=== PATIENT | female | born 1990 | race Caucasian/White ===

== ENCOUNTER → 2017-10-13 08:20 | Outpatient (CLI) | payer OTHER, MEDICAID, SELFPAY ==
--- NOTE | 2017-10-13 | ASPOS_PTH ---
PATIENT: KELIN FINLEY LOC: LAB U#:[id number] AGE/SX: 34/F ROOM: RE10/13/[address]: Dr. Otoniel Marino MD : 1990 BED: DIS: SPEC #: [id number] RECD: 10/13/17 10:02 STATUS: BLACK ZELDA #: [id number] ALLEY: 10/13/17 00:[address]: Otoniel Marino DEPT: CYTOLOGY RECD BY: Abenr Encarnacion ENTERED: 10/13/17 10:05 SP TYPE: ASP HERE OTHR DR: Dr. Cecilia Dhaliwal, DO Tissues: Neck, NOS Procedures: Surgery Specimen Level IV Cytology Other Fine Needle Asp on Site HEADER OPERATION: FNA midline neck mass PRE-OP DIAGNOSIS: Midline neck mass TISSUE SUBMITTED: FNA midline neck mass, smear and fluid for cytology, cell block DIAGNOSIS CYTOLOGY Fine needle aspiration, midline neck mass (smears and cell block): Scant skeletal muscle fragments are present. No evidence of malignancy. AM:rehan 10/14/17 COMMENT The specimen is evaluated at the time of FNA by Dr. Ballesteros. Immediate Evaluation: Negative for malignant cells. Skeletal muscle tissue present. Clinical correlation is suggested. CYTOLOGY STUDY Slides are reviewed. CYTOLOGY GROSS Received is 0.2 ml of shaikh fluid labeled with the patient's name, and designated midline neck mass. Two imprints made from the submitted fluid and the rest is added to CytoLyt for cell block preparation. Submitted for cytology study. / AM:rehan 10/13/17 TC:5 CPT: 78068, 46071, 33248
== END ==
PROVIDERS: Family Provider Internal Medicine; PCP Internal Medicine; Visit Provider Otolaryngology
DX: R22.1 Localized swelling, mass and lump, neck (principal)
CPT/HCPCS: 10021; 88161; 88305

== ENCOUNTER → 2017-10-20 10:07 | Outpatient (CLI) | payer OTHER, MEDICAID, SELFPAY | PROVIDERS: Family Provider Internal Medicine; PCP Internal Medicine; Visit Provider Otolaryngology | DX: R22.1 Localized swelling, mass and lump, neck (principal) | CPT/HCPCS: 70491; Q9967 ==

== ENCOUNTER → 2018-03-07 12:47 | Outpatient (CLI) | payer OTHER, SELFPAY ==
--- NOTE | 2018-03-07 12:52 | US_ITS ---
STUDY: THYROID ULTRASOUND REASON FOR EXAM: Female, 27 years old. History of thyroid nodules. TECHNIQUE: Ultrasound evaluation of the thyroid was performed with real-time and static hughes-scale imaging. COMPARISON: Comparison is made with prior study dated December 05, 2014. FINDINGS: RIGHT LOBE: The right lobe of the thyroid gland measures 4.8 cm x 1.8 cm x 1.5 cm. There is a homogeneous echotexture. There is a stable 3 mm x 3 mm x 1 mm hypoechoic solid/cystic nodule in the midpole of the lobe. LEFT LOBE: The left lobe of the thyroid gland measures 5.2 cm x 1.7 cm x 1.6 cm. There is a homogeneous echotexture. Stable 3 mm x 3 mm x 2 mm hypoechoic solid nodule in the lower pole. ISTHMUS: The isthmus measures 3.0 mm. The regional lymph nodes are normal. US/Thyroid IMPRESSION: Stable examination. Electronically Signed: Jordy White MD at 13:28 EST , Service support ,
--- OUTSIDE RECORDS SUMMARY | 2018-05-09 16:54 | XMS RPT_ITS | Continuity of Care Document ---
:1990 Author Organization [facility] Address [facility] [place] [address] Phone Care Team Providers Name Role Phone Cecilia Dhaliwal DO Unavailable Sha CAM, Teri Pyle Unavailable Corwin Delacruz MD Unavailable Elida CAM, Yonathan Crenshaw Unavailable Phil Marlow Unavailable Unavailable JACINTO Degroot Unavailable Unavailable Unavailable Unavailable Problems Name Dates Details Abnormal TSH (R79.89, 790.6) Status: Active ADD (attention deficit disorder) (F98.8, 314.00) Status: Active BMI 32.0-32.9,adult (Z68.32, V85.32) Status: Active Chronic constipation (K59.09, 564.00) Comments: eats cheesedrinks gatorade at work Status: Active Current smoker (F17.200, 305.1) Comments: counselled, cut down from 1/2 ppd to 5 cig /day.1/2 ppd 5-6 years Status: Active Deliveries (Parity) Comments: 1 Status: Active Dust allergy (J30.89, 477.8) Status: Active Easily distractable on examination (F90.0, 799.51) Status: Active Fatigue (R53.83, 780.79) Status: Active Female pelvic congestion syndrome (N94.89, 625.5) Status: Active Hypercalcemia (E83.52, 275.42) Status: Active Kidney stone (N20.0, 592.0) Comments: small asx Status: Active Left thyroid nodule (E04.1, 241.0) Status: Active Lipoma of other skin and subcutaneous tissue (D17.39, 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 Status: Active Vaginal Delivery Comments: Status: Active Medications Name Dates Details Vyvanse 70 MG Oral Capsule 1 (one) Capsule in am for 0 days Quantity: 30 {Capsule} Refills: 0 Ordered:02-Jan-2018 Teri Dalton MD Start : 02-Jan-2018 Active Comments:DX: F98.8thirty FLUCONAZOLE, 150MG (Oral Tablet) 1 (one) Tablet qd for 0 days Quantity: 10 {Tablet} Refills: 0 Ordered:17-Apr-2015 JACINTO Degroot Start : 28-Feb-2015 End : 17-Apr-2015 Inactive KETOROLAC TROMETHAMINE, 10MG (Oral Tablet) 1 (one) Tablet Tablet q6h prn for 0 days Quantity: 8 {Tablet} Refills: 0 Ordered:28-Feb-2014 Beatriz Paez LPN Start : 21-Jan-2014 End : 28-Feb-2014 Inactive Comments:injection given in office LINZESS, 145 MCG (LINACLOTIDE) CAPSULES, 145 MCGMCG (Oral Capsule) (Free Text) 1 (one) Capsule qod for 0 days Quantity: 12 {Capsule} Refills: 0 Ordered:14-Jan-2014 Beatriz Paez LPN Start : 03-Apr-2013 End : 14-Jan-2014 Inactive No Known Historical Medications STRATTERA, 80MG (Oral Capsule) 1 (one) Capsule daily for 0 days Quantity: 30 {Capsule} Refills: 0 Ordered:08-Aug-2014 Teri Dalton MD Start : 08-Aug-2014 End : 08-Aug-2014 Inactive Comments:flat affect no thought process at all AMPHETAMINE-DEXTROAMPHET ER, 15MG (Oral Capsule Extended Release 24 Hour) 1 (one) Capsule ER 24HR in am for 0 days Quantity: 30 {Capsule} Refills: 0 Ordered:16-Sep-2014 Teri Dalton MD Start : 16-Sep-2014 End : 16-Sep-2014 Discontinued Comments:thirty Allergies and Adverse Reactions Name Dates Details No Known Allergies (Allergy) Onset: 03-Apr-2013 Status: Active Past Medical History Name Dates Details Abdominal pain (R10.9, 789.00) Status: Inactive as of 18-Jul-2014 Abdominal pain, acute, right upper quadrant (R10.11, 789.01) Status: Inactive as of 18-Jul-2014 Abrasion of sclera of right eye, initial encounter (S05.8X1A, 918.2) Comments: very mild. ? rub it wrong. keep using wetting drop. justhappen this am. vision okay. if notbetter by tomorrow or worsen. Status: Inactive as of 17-Apr-2015 Anxiety (F41.9, 300.00) Comments: has been seeing counseling 2013 Status: Resolved as of 02-Mar-2018 Body mass index (BMI) 23.0-23.9, adult (Z68.23, V85.1) Status: Resolved as of 29-Nov-2017 Dysphagia (R13.10, 787.20) Status: Inactive as of 17-Apr-2015 Dysphagia, cricopharyngeal (R13.13, 787.23) Comments: s/p surgery path was normal and bengn Status: Inactive as of 02-Mar-2018 Encounter for pre-employment examination (Z02.1, V70.5) Status: Inactive as of 16-Sep-2014 Heartburn (R12, 787.1) Status: Inactive as of 16-Sep-2014 Irritability (R45.4, 799.22) Status: Resolved as of 07-Jun-2014 Mass of left side of neck (R22.1, 784.2) Status: Resolved as of 02-Mar-2018 Nausea (R11.0, 787.02) Status: Inactive as of 18-Jul-2014 Pelvic pain in female (R10.2, 625.9) Status: Inactive as of 18-Jul-2014 Unspecified Diagnosis Status: Inactive as of 17-Apr-2015 Vaginal discharge (N89.8, 623.5) Status: Inactive as of 17-Apr-2015 Weight gain (R63.5, 783.1) Status: Inactive as of 02-Mar-2018 Procedures Procedure Dates Details Thyroid cyst Completed Comments: January 2015 Date Value Details 20-Oct-2017 Soft Tissue Neck WITH Contrast Result: Comments: See Note; NOTES: [facility] Imaging Services [address] [place] [address] Soft Tissue Neck WITH Contrast MR#: [id number] Acct: [id number] Name: KELIN MACIEL Cathleen p #: [id number] : 1990 F 27 From: Dante Myers MD PCP: Cecilia Dhaliwal DO Status: REG CLI Study: Soft Tissue Neck WITH Contrast Date of Exam: 10/20/17 Exam# [id number] Ordering Dr: Ryan Marino MD STUDY: CT SOFT TISSUE NECK WITH CONTRAST REASON FOR EXAM: Female, 27 years old. Left-sided neck mass painful to the touch. Previous puss filled mass was removed from the same area in 2 018. RADIATION DOSAGE (If Supplied By Facility): CTDIvol = ( 22.61 ) mGy, DLP = ( 660.50 ) mGycm TECHNIQUE: Thin slice helical CT acquisition of the neck soft tissues was performed from the level of t he emelyn through the orbits after administration of IV contrast Isovue-300, 75 mL, with paracoronal and parasagittal 2-D multiplanar reformatted images saved to the PACS archive. Individualized dose o ptimization techniques were used for this CT. COMPARISON: 12/31/2014 MRI face/neck. 12/10/2014 CT soft tissue neck.. FINDINGS: Left sided sternohyoid strap muscle f ocal thickening, mildly heterogeneous features internally, protruding to the undersurface of the skin. This inflammatory process measures approximately 2.1 cm craniocaudal, up to 1.9 cm transverse, and up to 7.1 mm anterior-posterior depth. There is no organized abscess. The process may also partially involve the underlying sternothyroid muscle. In this location the most common inflamed/infected cystl sukh lesion is a thyroglossal duct cyst. There is radiodense thyroid tissue at the base of this process. There is not a clearly defined tract supports toward the base of the tongue. Morphologically, the thyroid is in appropriate position with appropriate size and density characteristics. The remaining supraclavicular and cervical soft tissues are unremarkable. 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 Phlegmonou s features without organized abscess. Electronically Signed: Dante Myers, at 10:43 EDT Tel , Service support , CC: Otoniel lagos MD; Cecilia Dhaliwal DO Reconciliation Clerk: Signed 05-Apr-2015 Emergency Department Summary Result: Comments: See Note; NOTES: [facility] Medical Records Department [address] [place] [address] Emergency Department Summary MR#: [id number] Acct: [id number] Name: KELIN FLORES Rep #: [id number] : 1990 24 From: Kimi Mario MD PCP: Cecilia Dhaliwal DO Status: DEP ER DATE OF SERVICE: 04/05/2015 CHIEF COMPLAINT: Finger injury. HISTORY: A 24-year -old female who presents reporting having injured her left ring finger at work. She is right-handed, dropped a 10-pound ____ onto her left hand. This happened just prior to arrival. PHYSICAL EXAMINA TION: GENERAL: She is alert, appropriate and well-appearing. EXTREMITIES: Inspection of the left hand demonstrates subtle ecchymoses to the pad of the left ring finger. No obvious deformity or swelli ng. No subungual hematoma. Range of motion in that finger is mildly limited due to pain, but she has good range of motion in the wrist and the rest of the hand. Two-point discrimination is intact in t he fingers. CLINICAL COURSE AND DECISION MAKING: X-ray of the left hand shows no obvious fracture or deformity. There is a strange calcification around the tuft of the left ring finger and again thi s being the area where she is most tender and her injury as is a little bit strange and I discussed with her that it does not look like an obvious fracture, but if it is read by radiology as in fact b eing a fracture, the treatment is essentially identical to what I am doing, which is an Alumafoam splint. She is referred to [facility] for outpatient followup and she was given a note for work restricti ons. DISPOSITION: Discharge. DIAGNOSIS: Left ring finger contusion. Kimi Mario MD T: NTS JOB: [id number] 04/05/15441 <Electronically signed by Kimi Mario MD> Date __ Kimi Mario MD Cosigner Signature (If Indicated): Date CC: Cecilia Dhaliwal DO Date Dictated : 04/05/15221 Date Transcribed: 04/05/15221 Reconciliation Clerk: Signed 05-Apr-2015 Discharge Instruction Result: Comments: See Note; NOTES: [facility] Medical Records Department [address] [place] [address] Discharge Instruction 04/05/15215 MR#: [id number] Acct: [id number] Name: KELIN FLORES Rep #: [id number] : 1990 From: Kimi Mario MD PCP: Cecilia Dhaliwal DO Status: REG ER ED Disposition - Plan for ED Patient: Chief Complaint: Upper Extremity In jury Instructions: ED Finger Contusion, ED Crush Injury, Hand/Finger Referrals: Cecilia Dhaliwal DO [Primary Care Provider] - [facility]IC[facility]] - What to do if you have Problem s For any increased pain, shortness of breath, bleeding, nausea or vomiting, chest pain, or any unexpected problems, contact your doctor. Call [facility] ([phone]) or report to the [facility] Emergency Room. Call 911 if necessary. 04/05/15 0221 <Electronically signed by Kimi Mario MD> Date Kimi Mario MD Cosign er Signature (If Indicated): Date CC: Cecilia Dhaliwal DO 05-Apr-2015 Hand Min 3 Views Result: Comments: See Note; NOTES: [facility] Imaging Services [address] [place] [address] Verdana 4d Hand Min 3 Views MR#: [id number] Acct: [id number] Name: Maine FLORES Rep #: [id number] : 1990 F 24 From: Jadon Bustamante PCP: Cecilia Dhaliwal DO Status: REG ER Study: Hand Min 3 Views Date of Exam: 04/05/15 Exam# [id number] Ordering Dr: Kimi Mario MD JUSTIN DY: X-RAY - LEFT HAND REASON FOR EXAM: Female, 24 years old. Trauma, pain TECHNIQUE: 3 view(s) of the hand. COMPARISON: None. FINDINGS: Normal visualized ca rpal bones and carpal articulations. Normal carpometacarpal articulation of the thumb. Normal second through fifth carpometacarpal joints. Normal metacarpi. Normal metacarpophalangeal (MCP) joints. Normal visualized phalanges and interphalangeal joints. The soft tissue structures are unremarkable. IMPRESSION: Normal x- ray examination of the hand. Elect ronically Signed: Jadon Bustamante at 2:17 EST , Service support [phone], RAD/Hand Min 3 Views IMPRESSION: Normal x-ray examinat ion of the hand. Electronically Signed: Jadon Bustamante at 2:17 EST , Service support [phone], CC: Kimi Mario MD; Cecilia Dhaliwal DO Reconciliation Clerk: Signed 06-Feb-2015 Operative Report Result: Comments: See Note; NOTES: [facility] Medical Records Department [address] [place] [address] Operative Report MR#: [id number] Acct: [id number] Name: DAVID FLORES Rep #: [id number] : 1990 24 From: Ryan Marino MD PCP: Cecilia Dhaliwal DO Status: [facility] DATE OF SERVICE: 01/21/2015 DATE OF PROCEDURE: January 21, 2015 PREOPERATIVE DIAGN OSIS: Left neck mass. POSTOPERATIVE DIAGNOSIS: Left neck mass. PROCEDURE: Incisional biopsy, deep neck mass. SURGEON: Otoniel Marino M.D. ANESTHESIA: General endotracheal anesthesia. COMPLICATIONS: None. DRAINS: None. SPECIMENS: Multiple biopsies sent for frozen and permanent sectioning. INDICATIONS: This is a 24-year-old female who has had a several-month history of a waxing and waning mass in her left neck. CT demonstrated fullness with some hypodensity in her left neck just deep to the left strap muscle. MRI further demonstrated some thickening of the strap musc le with no definite mass. DESCRIPTION OF PROCEDURE: On the date of procedure, after appropriate informed consent was obtained, the patient was brought to the operating room, placed in the supine pos ition on the operating table. The patient was placed under general endotracheal anesthesia by the anesthesiologist. The endotracheal tube was secured. The eyes were taped and padded. The neck was prep ped and draped in sterile fashion in an area that was previously demarcated when the patient was awake to pinpoint her mass, which was noticeable on her neck. This area was injected with 1% lidocaine with epinephrine. A #15 blade was used to make a roughly 2 cm linear incision and the platysma muscle was lifted off of the underlying tissues. The left strap muscles were dissected out and there was severe scarring and inflammation in this area. The left strap muscle was elevated superficially and deep to the strap muscle, a small pocket of purulent material was found. The reactive tissue along the superficial strap muscles along with some muscular tissue was excised and sent for frozen section to rule out soft tissue sarcoma. These were negative. The area around the pus pocket was also sent for frozen sectioning and these were negative for any malignancy. No definitive cyst or sack was located and the entire left neck was explored and nothing concerning was found. The area was irrigate d with normal saline and hemostasis was achieved. The incision was closed with a combination of 4-0 Vicryl and 5-0 Prolene. The patient was awoken from general endotracheal anesthesia and returned to the postanesthesia care unit in stable condition. Otoniel Marino MD T: NTS JOB: [id number] 02/06/15904 <Electronically signed by Ryan Marino MD> Date ___ Ryan Marino MD Cosigner Signature (If Indicated): Date CC: Otoniel Marino MD; Cecilia Dhaliwal DO Date Dictated: 01/21/151224 Date Transcribed: 01/21/151224 Reconciliation Clerk: Signed 21-Jan-2015 Discharge Instruction Result: Comments: See Note; NOTES: [facility] Medical Records Department [address] [place] [address] Instructions for Home/Discharge Instructions 01/21/15 1141 MR#: [id number] Acct: [id number] Name: KELIN FLORSE Rep #: [id number] : 1990 24 From: Ryan Marino MD PCP: Cecilia Dhaliwal DO Status: REG NDC Discharge Diet: Light diet - advance as mendoza ated Discharge Activity: May not drive while taking narcotic pain medications. Call your doctor if your incision/area has: Increased Pain/ Swelling Additional Dressing/Incision Instructions:: may was h with soap and water starting morning; ointment to incision twice daily. Allergies/Adverse Reactions: Allergies No Known Allergies Allergy (Verified 03/28/13 02:50) Medications to karla e at Discharge Lisdexamfetamine Dimesylate [Vyvanse] 50 mg PO DAILY 01/14/15 Cephalexin [Keflex] 500 mg PO BID #10 capsule 01/21/15 Oxycodone HCl/Acetaminophen [Percocet 5/325] 1 tablet PO Q6H PRN P RN #20 tablet 01/21/15 The following prescriptions were given: Oxycodone HCl/Acetaminophen [Percocet 5/325] 1 tablet PO Q6H PRN PRN #20 tablet PRN Reason: Pain Cephalexin [Keflex] 500 mg PO BID #1 0 capsule Please Follow Up With: Ryan Marino When: tuesday01/27/15 - call to make appt 01/21/15 1143 <Electronically signed by Ryan Marino MD> Date Ryan Marino MD CC: Cecilia Dhaliwal DO 31-Dec-2014 Orbit Face Neck W/WO Contrast Result: Comments: See Note; NOTES: [facility] Imaging Services [address] [place] [address] Verdana 4d Orbit Face Neck W/WO Contrast MR#: [id number] Acct: [id number] Nam e: KELIN FLORES Rep #: [id number] : 1990 F 24 From: Irina Belcher PCP: Cecilia Dhaliwal DO Status: REG CLI Study: Orbit Face Neck W/WO Contrast Date of Exam: 12/31/14 Exam# [id number] Saritha middleton Dr: Ryan Marino MD STUDY: MRI SOFT TISSUE NECK WITH AND WITHOUT CONTRAST REASON FOR EXAM: Female, 24 years old. Left throat/neck lump x 2 months. Varies in size. Marked area of intere sted with 1 capsule TECHNIQUE: Standarized fat and water weighted pulse sequences were obtained in all 3 orthogonal plane pre and post intravenous administration of 8 ml of Gadavist contrast materia l. COMPARISON: December 10, 2014 CT neck FINDINGS: Deep to the palpable marker at the level of the thyroid, there is enhancement within the left strap muscle. There are tiny collections of high T2 signal. Findings are grossly unchanged since on the prior CT. Normal bilateral parotid glands. Normal bilateral spring assembler supervisor spaces. Normal bilateral parapharynge al spaces. Normal bilateral carotid spaces. Normal bilateral sublingual and submandibular glands and spaces. Normal visualized nasopharynx. Normal retropharyngeal space. Normal perivertebral space. Normal visualized bilateral faucial tonsils. The visualized tongue, tongue base and oropharynx are normal. The visualized cervical lymph nodes (levels I-) are within normal size limits, and ric ntain normal morphology. There is no demonstrated solid or cystic mass lesion. There is no abnormal contrast enhancement. Normal epiglottis, bilateral vallecula and hypopharynx. The pre-epiglottic a nd paraglottic adipose spaces are normal. Normal visualized bilateral piriform sinuses, aryepiglottic folds, vocal cords, and arytenoid-cricoid articulations. Normal subglottic trachea. Normal bilat eral lobes of the thyroid gland. Normal visualized pulmonary apices. Normal visualized paranasal sinuses. Normal visualized cervical spine. IMPRESSION: Left st rap muscle enhancement. Differential diagnosis includes atypical presentation of infected thyroglossal cyst, lymph node and epidermoid cyst. Further evaluation with targeted sonography and possible FNA can be obtained. N.B. : The above information has been verbally conveyed by Irina Belcher MD to Dr. Delacruz, covering physician, on 12/31/2014 10:13:34 (ET). Electronically Signed: Irina zuñiga MD at 10:21 EST Tel , Service support [phone], N.B. : The above information has been verbally conveyed by Irina Belcher MD to Dr. Delacruz, covering physician, on 12/31/2014 10:13:34 (ET). CC: Otoniel Marino MD; Cecilia Dhaliwal DO Reconciliation Clerk: Signed 10-Dec-2014 Soft Tissue Neck WITH Contrast Result: Comments: See Note; NOTES: [facility] Imaging Services [address] [place] [address] Verdana 4d Soft Tissue Neck WITH Contrast MR#: [id number] Acct: [id number] Na me: KELIN FLORES Rep #: [id number] : 1990 F 24 From: Basilio Agudelo MD PCP: Cecilia Dhaliwal DO Status: REG CLI Study: Soft Tissue Neck WITH Contrast Date of Exam: 12/10/14 Exam# [id number] [facility] Dr: Mala Alfredo STUDY: CT SOFT TISSUE NECK WITH CONTRAST REASON FOR EXAM: Female, 24 years old. Neck mass. RADIATION DOSAGE (If Supplied By Facility): CTDIvol = ( 27.21 ) mGy, DLP = ( 784. 81 ) mGycm TECHNIQUE: The patient was scanned in a multi-detector CT scanner. High resolution transaxial imaging was performed following intravenous administration of 100ml ml of Isovue 300 contrast material. Sagittal and coronal images were reconstructed. A BB marker was placed in the neck mass. COMPARISON: None. FINDINGS: A faint radiopaque marker over lying the right TMJ surface is present. Underneath this marker is prominent subcutaneous fat suggestive of lipoma. Both parotid glands are normal. Normal bilateral spring assembler supervisor spaces. Normal bilatera l parapharyngeal spaces. Normal bilateral carotid spaces. Normal bilateral sublingual and submandibular glands and spaces. Normal visualized nasopharynx. Normal retropharyngeal space. Normal periv ertebral space. Post surgical absence of both palatine tonsils. The visualized tongue, tongue base and oropharynx are normal. The visualized cervical lymph nodes (levels I-) are within normal siz e limits, and maintain normal morphology. There is no demonstrated solid or cystic mass lesion. There is no abnormal contrast enhancement. Normal epiglottis, bilateral vallecula and hypopharynx. The pre-epiglottic and paraglottic adipose spaces are normal. Normal visualized bilateral piriform sinuses, aryepiglottic folds, vocal cords, and arytenoid- cricoid articulations. Normal subglottic trach ea. Normal bilateral lobes of the thyroid gland. Normal visualized pulmonary apices. Normal visualized paranasal sinuses. Normal visualized cervical spine. IM PRESSION: 1. 2.5 x 1.2 cm benign lipoma overlying the right TMJ and causing minimal mass effect on the underlying masseter muscle. 2. Post surgical absence of both palatine tonsils. 3. The remainder of the neck is normal. Electronically Signed: Basilio Agudelo MD at 11:54 EDT , Service support [phone], CC: Mala Alfredo; Cecilia Dhaliwal DO Reconciliation Clerk: Signed 05-Dec-2014 Thyroid Result: Comments: See Note; NOTES: [facility] Imaging Services [address] [place] [address] Verdana 4d Thyroid MR#: [id number] Acct: [id number] Name: KELIN FLORES Rep #: [id number] : 1990 F 24 From: Joby Hurd MD PCP: Cecilia Dhaliwal DO Status: REG CLI Study: Thyroid Date of Exam: 12/05/14 Exam# [id number] Ordering Dr: Mala Alfredo STUDY: THYROID UL TRASOUND REASON FOR EXAM: Female, 24 years old. Thyroid nodule TECHNIQUE: Ultrasound evaluation of the thyroid was performed with real-time and static hughes-scale imaging. COMPARISON: None. FINDINGS: RIGHT LOBE: The right lobe of the thyroid gland measures 5.5x2x1.3 cm. There is a homogeneous echotexture. There is a hypoechoic nodule in the right thyroi d lobe measures 3x4x2 mm. LEFT LOBE: The left lobe of the thyroid gland measures 5.4x1.8x4.6 cm. There is a homogeneous echotexture. There is a hypoechoic nodule in the left thyroid lobe measures 3x 3x2 mm. ISTHMUS: The isthmus measures 2 mm. The regional lymph nodes are normal. IMPRESSION: Nonspecific nodules in the right and left thyroid lobes largest measures 4 mm most likely represent benign lesions followup in 6-12 months may be warranted to ensure stability. Electronically Signed: Daniel Hurd MD at 9:37 EDT Tel , Service support [phone], CC: Mala Alfredo; Cecilia Dhaliwal DO Reconciliation Clerk: Signed 15-Jan-2014 Gallbladder Result: Comments: See Note; NOTES: [facility] Imaging Services [address] [place] [address] Ultrasound Report MR#: [id number] Acct: [id number] Name: KELIN FLORES Rep #: [id number] : 1990 F 23 From: Heriberto Falk MD PCP: Cecilia Dhaliwal DO Status: REG CLI Study: Gallbladder Date of Exam: 01/15/14 Exam# [id number] Ordering Dr: Cecilia Dhaliwal DO STUDY: ABDOMINA L ULTRASOUND - RIGHT UPPER QUADRANT REASON FOR VISIT: Female, 23 years old. Nausea TECHNIQUE: Ultrasound evaluation of the right upper quadrant was performed with real-time and static hughes-scale im aging. TECHNICAL QUALITY: Adequate. COMPARISON: None. FINDINGS: Liver: The liver measures 14.9 cm. There is normal echogenicity of the liver. The bile ducts are within normal limits. There is hepatic color flow. The direction of portal flow is hepatopetal. There is no demonstrated mass lesion. Gallbladder: Normal distended gallbladder. The gallbladder wall measures 1.8 mm. There is a negative sonographic Mckeon's sign. There is no pericholecystic fluid. There are no gallstones. Common Bile Duct (C.B.D.): The common bile duct measures 2.0 mm. Pa ncreas: Normal size of the head, body and tail of the pancreas. There is normal echogenicity of the pancreas. There is no demonstrated pancreatic mass or cyst. Right Kidney: Normal size of the right kidney. The right kidney measures 10.3 x 4.6 x 4.7 cm. Normal renal cortex. The right cortex measures 1.4 cm. There is no demonstrated renal mass or cyst. There is no right hydronephrosis. There is a 3 mm nonobstructing stone IMPRESSION: Nonobstructing right nephrolithiasis, otherwise unremarkable study Electronically Signed: Sly Falk MD at 11:12 EST , Service support [phone], CC: Cecilia Dhaliwal DO Reconciliation Clerk: Signed Social History Name Dates Details Alcohol Use: Occasional alcohol use. 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 Status: Active Living Situation: Lives with domestic partner. Status: Active No Drug Use Status: Active Pets/Animals Comments: none Status: Active Tobacco use: Current every day smoker. Comments: 3 or 4 qd Status: Active Smoking Status Name Dates Details Current every day smoker Vital Signs Date Test Result Details [id number]-[id number] Pulse 104 /min Comments: Pattern: Regular Respiration Rate 18 /min Comments: Pattern: Unlabored O2 SAT 98 % Comments: Room air BP Systolic 118 mm[Hg] Comments: Patient Position: Sitting; Cuff Location: Left Arm; Cuff Size: Standard BP Diastolic 72 mm[Hg] Comments: Patient Position: Sitting; Cuff Location: Left Arm; Cuff Size: Standard Weight 180.25 lb Height 67 in Body Mass Index Calculated 28.23 kg/m2 Body Surface Area Calculated 1.93 m2 :44 Temperature 97.9 f Comments: Method: Temporal Pulse 100 /min Comments: Pattern: Regular Respiration Rate 20 /min Comments: Pattern: Unlabored O2 SAT 99 % Comments: Room air BP Systolic 118 mm[Hg] Comments: Patient Position: Sitting; Cuff Location: Left Arm; Cuff Size: Standard BP Diastolic 78 mm[Hg] Comments: Patient Position: Sitting; Cuff Location: Left Arm; Cuff Size: Standard Weight 208 lb Height 67 in Body Mass Index Calculated 32.58 kg/m2 Body Surface Area Calculated 2.06 m2 :19 Pulse 83 /min Comments: Pattern: Regular Respiration Rate 18 /min Comments: Pattern: Unlabored O2 SAT 98 % Comments: Room air BP Systolic 122 mm[Hg] Comments: Patient Position: Sitting; Cuff Location: Left Arm; Cuff Size: Large BP Diastolic 78 mm[Hg] Comments: Patient Position: Sitting; Cuff Location: Left Arm; Cuff Size: Large Weight 208.125 lb Height 67 in Body Mass Index Calculated 32.6 kg/m2 Body Surface Area Calculated 2.06 m2 :09 Temperature 98.1 f Comments: Method: Temporal Pulse 72 /min Comments: Pattern: Regular Respiration Rate 72 /min Comments: Pattern: Unlabored O2 SAT 97 % Comments: Room air BP Systolic 122 mm[Hg] Comments: Patient Position: Sitting; Cuff Location: Left Arm; Cuff Size: Standard BP Diastolic 76 mm[Hg] Comments: Patient Position: Sitting; Cuff Location: Left Arm; Cuff Size: Standard Weight 148 lb Height 67 in Body Mass Index Calculated 23.18 kg/m2 Body Surface Area Calculated 1.78 m2 :36 Temperature 97.6 f Comments: Method: Temporal Pulse 110 /min Comments: Pattern: Regular Respiration Rate 18 /min Comments: Pattern: Unlabored O2 SAT 97 % Comments: Room air BP Systolic 118 mm[Hg] Comments: Patient Position: Sitting; Cuff Location: Left Arm; Cuff Size: Standard BP Diastolic 76 mm[Hg] Comments: Patient Position: Sitting; Cuff Location: Left Arm; Cuff Size: Standard Weight 144 lb Height 67 in Body Mass Index Calculated 22.55 kg/m2 Body Surface Area Calculated 1.76 m2 :11 Pulse 68 /min Comments: Pattern: Regular Respiration Rate 18 /min Comments: Pattern: Unlabored O2 SAT 97 % Comments: Room air BP Systolic 138 mm[Hg] Comments: Patient Position: Sitting; Cuff Location: Left Arm; Cuff Size: Standard BP Diastolic 64 mm[Hg] Comments: Patient Position: Sitting; Cuff Location: Left Arm; Cuff Size: Standard :41 Temperature 97.6 f Pulse 99 /min Comments: Pattern: Regular Respiration Rate 16 /min Comments: Pattern: Unlabored O2 SAT 98 % Comments: Room air BP Systolic 118 mm[Hg] Comments: Patient Position: Sitting; Cuff Location: Left Arm; Cuff Size: Standard BP Diastolic 76 mm[Hg] Comments: Patient Position: Sitting; Cuff Location: Left Arm; Cuff Size: Standard Weight 150.125 lb Height 67 in Body Mass Index Calculated 23.51 kg/m2 Body Surface Area Calculated 1.79 m2 :02 Temperature 97.2 f Pulse 71 /min Comments: Pattern: Regular Respiration Rate 17 /min Comments: Pattern: Unlabored O2 SAT 96 % Comments: Room air BP Systolic 118 mm[Hg] Comments: Patient Position: Sitting; Cuff Location: Left Arm; Cuff Size: Standard BP Diastolic 76 mm[Hg] Comments: Patient Position: Sitting; Cuff Location: Left Arm; Cuff Size: Standard Weight 150.125 lb Height 67 in Body Mass Index Calculated 23.51 kg/m2 Body Surface Area Calculated 1.79 m2 :10 Temperature 98.2 f Pulse 68 /min Comments: Pattern: Regular BP Systolic 124 mm[Hg] Comments: Patient Position: Sitting; Cuff Location: Left Arm; Cuff Size: Standard BP Diastolic 82 mm[Hg] Comments: Patient Position: Sitting; Cuff Location: Left Arm; Cuff Size: Standard Weight 155 lb Height 67 in Body Mass Index Calculated 24.28 kg/m2 Body Surface Area Calculated 1.81 m2 :01 Temperature 97.8 f Comments: Method: Temporal Pulse 86 /min Comments: Pattern: Regular Respiration Rate 20 /min Comments: Pattern: Unlabored O2 SAT 98 % Comments: Room air BP Systolic 114 mm[Hg] Comments: Patient Position: Sitting; Cuff Location: Left Arm; Cuff Size: Standard BP Diastolic 76 mm[Hg] Comments: Patient Position: Sitting; Cuff Location: Left Arm; Cuff Size: Standard Weight 160 lb Height 67 in Body Mass Index Calculated 25.06 kg/m2 Body Surface Area Calculated 1.84 m2 :35 Temperature 97.6 f Comments: Method: Temporal Pulse 84 /min Comments: Pattern: Regular Respiration Rate 18 /min Comments: Pattern: Unlabored O2 SAT 99 % Comments: Room air BP Systolic 114 mm[Hg] Comments: Patient Position: Sitting; Cuff Location: Left Arm; Cuff Size: Standard BP Diastolic 68 mm[Hg] Comments: Patient Position: Sitting; Cuff Location: Left Arm; Cuff Size: Standard Weight 164 lb Height 67 in Body Mass Index Calculated 25.69 kg/m2 Body Surface Area Calculated 1.86 m2 :05 Temperature 97.1 f Comments: Method: Temporal Pulse 82 /min Comments: Pattern: Regular Respiration Rate 18 /min Comments: Pattern: Unlabored O2 SAT 98 % Comments: Room air BP Systolic 110 mm[Hg] Comments: Patient Position: Sitting; Cuff Location: Left Arm; Cuff Size: Standard BP Diastolic 70 mm[Hg] Comments: Patient Position: Sitting; Cuff Location: Left Arm; Cuff Size: Standard Weight 165 lb Height 67 in Body Mass Index Calculated 25.84 kg/m2 Body Surface Area Calculated 1.86 m2 :14 Pulse 82 /min Comments: Pattern: Regular Respiration Rate 18 /min Comments: Pattern: Unlabored O2 SAT 95 % Comments: Room air BP Systolic 120 mm[Hg] Comments: Patient Position: Sitting; Cuff Location: Left Arm; Cuff Size: Large BP Diastolic 82 mm[Hg] Comments: Patient Position: Sitting; Cuff Location: Left Arm; Cuff Size: Large Weight 165.125 lb Height 67 in Body Mass Index Calculated 25.86 kg/m2 Body Surface Area Calculated 1.86 m2 :42 Pulse 83 /min Comments: Pattern: Regular Respiration Rate 18 /min Comments: Pattern: Unlabored O2 SAT 98 % Comments: Room air BP Systolic 120 mm[Hg] Comments: Patient Position: Sitting; Cuff Location: Left Arm; Cuff Size: Large BP Diastolic 78 mm[Hg] Comments: Patient Position: Sitting; Cuff Location: Left Arm; Cuff Size: Large Weight 164.25 lb Height 67 in Body Mass Index Calculated 25.72 kg/m2 Body Surface Area Calculated 1.86 m2 :26 Pulse 101 /min Comments: Pattern: Regular Respiration Rate 18 /min Comments: Pattern: Unlabored O2 SAT 97 % Comments: Room air BP Systolic 120 mm[Hg] Comments: Patient Position: Sitting; Cuff Location: Left Arm; Cuff Size: Large BP Diastolic 76 mm[Hg] Comments: Patient Position: Sitting; Cuff Location: Left Arm; Cuff Size: Large Weight 159.5 lb Height 67 in Body Mass Index Calculated 24.98 kg/m2 Body Surface Area Calculated 1.84 m2 :24 Pulse 94 /min Comments: Pattern: Regular Respiration Rate 18 /min Comments: Pattern: Unlabored O2 SAT 98 % Comments: Room air BP Systolic 108 mm[Hg] Comments: Patient Position: Sitting; Cuff Location: Left Arm; Cuff Size: Standard BP Diastolic 78 mm[Hg] Comments: Patient Position: Sitting; Cuff Location: Left Arm; Cuff Size: Standard Weight 159.5 lb Height 67 in Body Mass Index Calculated 24.98 kg/m2 Body Surface Area Calculated 1.84 m2 :43 Temperature 98.3 f Comments: Method: Oral Pulse 80 /min Comments: Pattern: Regular Respiration Rate 16 /min O2 SAT 98 % Comments: Room air BP Systolic 122 mm[Hg] Comments: Patient Position: Sitting; Cuff Location: Left Arm; Cuff Size: Standard BP Diastolic 72 mm[Hg] Comments: Patient Position: Sitting; Cuff Location: Left Arm; Cuff Size: Standard Weight 164.5 lb Height 67 in Body Mass Index Calculated 25.76 kg/m2 Body Surface Area Calculated 1.86 m2 :24 Pulse 81 /min Comments: Pattern: Regular Respiration Rate 18 /min Comments: Pattern: Unlabored O2 SAT 98 % Comments: Room air BP Systolic 138 mm[Hg] Comments: Patient Position: Sitting; Cuff Location: Left Arm; Cuff Size: Large BP Diastolic 80 mm[Hg] Comments: Patient Position: Sitting; Cuff Location: Left Arm; Cuff Size: Large Weight 164.5 lb Height 67 in Body Mass Index Calculated 25.76 kg/m2 Body Surface Area Calculated 1.86 m2 :48 Temperature 100.7 f Comments: Method: Oral Pulse 84 /min Comments: Pattern: Regular Respiration Rate 20 /min Comments: Pattern: Unlabored O2 SAT 98 % Comments: Room air BP Systolic 120 mm[Hg] Comments: Patient Position: Sitting; Cuff Location: Left Arm; Cuff Size: Large BP Diastolic 82 mm[Hg] Comments: Patient Position: Sitting; Cuff Location: Left Arm; Cuff Size: Large Weight 163.25 lb Height 67 in Body Mass Index Calculated 25.57 kg/m2 Body Surface Area Calculated 1.86 m2 Results Date Description Value Details [id number]:00 ASP DONE IN LAB See Note Comments: [facility] [address] [place], [address] (Normal) Comments: Patient: KELIN MACIEL : 1990 () Acct Num: [id number] Phys: Jamila CAM,Gridley Unit Num: [id number] Loc: LAB Specimen: [id number] Received: 10/13/17 - 1002 Spec Type: ASP HERE TISSUES TISSUES: Neck, NOS COMMENT The specimen is evaluated at the time of FNA by Dr. Ballesteros. Immediate Evaluation: Negative for malignant cell s. Skeletal muscle tissue present. Clinical correlation is suggested. CYTOLOGY GROSS Received is 0.2 ml of shaikh fluid labeled with the patient's name, and designated midline neck mas s. Two imprints made from the submitted fluid and the rest is added to CytoLyt for cell block preparation. Submitted for cytologystudy. / AM:rehan 10/13/17 TC:5 CPT: 88418, 33074, 49028 CYTOLOGY STUDY Slides are reviewed. DIAGNOSIS CYTOLOGY Fine needle aspiration, midline neck mass (smears and cell block): Scant skeletal muscle fragments are present. No evidence of maligna ncy. AM:rehan 10/14/17 HEADER OPERATION: FNA midline neck mass PRE- OP DIAGNOSIS: Midline neck mass TISSUE SUBMITTED: FNA midline neck mass, smear and fluid for cytology, cell block Signed Kilo Ballesteros 10/14/17 <signature on file> 31-[id number]:3 Cytomegalovirus (CMV) Ab, 8.40 U/mL Comments: PATIENT NOT FASTINGPERFORMED BY: [facility] [facility] [id number] 4 IgG (Abnormal) Range: 0.00-0.59 Comments: Negative <0.60 Equivocal 0.60 - 0.69 Positive >0.69 :3 Cytomegalovirus (CMV) Ab, <30.0 AU/mL Comments: PATIENT NOT FASTINGPERFORMED BY: [facility] [facility] [id number] 4 IgM (Normal) Range: 0.0-29.9 Comments: Negative <30.0 Equivocal 30.0 - 34.9 Positive >34.9 A positive result is generally indicative of acute infection, reactivation or persistent IgM production. :34 EBV Acute Infection Antibodies Comments: PATIENT NOT FASTINGPERFORMED BY: [facility] [facility] [id number] Interpretation: SPRCS (Normal) Comments: EBV Interpretation Chart . Interpretation EBV-IgM EA(D)-IgG VCA-IgG EBNA-IgG . EBV Seronegative - - - - Early Phase + - - - Acute Primary + +or- + - Infection Convalescence/Past - +or- + + Infection Reactivated +or- + + + Infection + Antibody Present - Antibody Absent 71-[id number]:34 Specimen Status Report Comments: PATIENT NOT FASTINGPERFORMED BY: [facility] [facility] [id number] 01-Lyb-815518:3 Written Authorization WAR (Normal) Comments: PATIENT NOT FASTINGPERFORMED BY: [facility] [facility] [id number] 4 Comments: Written Authorization Received.Authorization received from BEATRIZ PAEZ LPN [id number] by Letha Aguilar :34 Anti-TPO Antibody (84869) Comments: PATIENT NOT FASTINGPERFORMED BY: [facility] [facility] [id number] Liver-Kidney Microsomal Ab <1.0 {Units} (Normal) Range: 0.0-20.0 Comments: Negative 0.0 - 20.0 Equivocal 20.1 - 24.9 Positive >24.9 . LKM type 1 antibodies are detected in patients with autoimmune hepatitis type 2 and in up to 8% of patients with chronic HCV infection. :34 TSH (93297) Comments: PATIENT NOT FASTINGPERFORMED BY: [facility] [address]ublin [place] [id number] TSH 0.702 {uIU/mL} (Normal) Range: 0.450-4.500 :34 T4, FREE (THYROXINE) (16269) Comments: PATIENT NOT FASTINGPERFORMED BY: [facility] [address] [facility] [place] [id number] T4,Free(Direct) 1.36 ng/dL (Normal) Range: 0.82-1.77 :34 T3, FREE (TRIDOTHYRONINE) (49273) Comments: PATIENT NOT FASTINGPERFORMED BY: [facility] [address] [facility] [place] [id number] Triiodothyronine,Free,Serum 2.9 pg/mL (Normal) Range: 2.0-4.4 :23 HgA1C , Office (26633) HgA1C , Office 4.9 % (Normal) Range: 4.6 - 7.1 :34 CALCIFIDIOL (41164) VIT D 25 Comments: PATIENT NOT FASTINGPERFORMED BY: [facility] [address] [facility] [place] [id number] Vitamin D, 25-Hydroxy 16.0 ng/mL (Abnormal) Range: 30.0-100.0 Comments: Vitamin D deficiency has been defined by the [place] of[employer]icine and an Endocrine Society practice guideline as alevel of serum 25-OH vitamin D less than 20 ng/mL (1,2).The Endocrine Society went on to further define vitamin Dinsufficiency as a level between 21 and 29 ng/mL (2).1. IOM ([place] of [employer]). 2010. Dietary reference intakes for calcium and D. [place]: The National Academies Press.2. Kelly MF, Rocky SANCHEZ, Padmini CHICAS, et al. Evaluation, treatment, and prevention of vitamin D deficiency: an Endocrine Society clinical practice guideline. JCEM. 2010; 96(7):1911-30. :34 Folate (69569) Comments: PATIENT NOT FASTINGPERFORMED BY: CB [facility] [address]Dublin [place] [id number] Folate (Folic Acid), Serum 14.3 ng/mL (Normal) Comments: A serum folate concentration of less than 3.1 ng/mL isconsidered to represent clinical deficiency. 23-Ghq-281512:34 VITAMIN B-12 (CYANOCOBALAMIN) Comments: PATIENT NOT FASTINGPERFORMED BY: CB [facility] Tu[address]hm[address]Dublin [place] [id number] (70300) Vitamin B12 734 pg/mL (Normal) Range: 232-1245 :34 SED RATE ERYTHROCYTE (99916) Comments: PATIENT NOT FASTINGPERFORMED BY: CB [facility] Bsorvl[address]Dublin [place] [id number] Sedimentation Rate-Westergren 2 mm/h (Normal) Range: 0-32 :34 RHEUMATOID FACTOR-QUANT (17631) Comments: PATIENT NOT FASTINGPERFORMED BY: CB [facility] [address]uln[address]Dublin [place] [id number] RA Latex Turbid. <10.0 {IU/mL} (Normal) Range: 0.0-13.9 :34 METABOLIC PANEL, COMPREHENSIVE Comments: PATIENT NOT FASTINGPERFORMED BY: CB [facility] [address]orkl[address]Dublin [place] [id number] (27223) ALT (SGPT) 11 [iU]/L (Normal) Range: 0-32 AST (SGOT) 14 [iU]/L (Normal) Range: 0-40 Alkaline Phosphatase, S 102 [iU]/L (Normal) Range: 39-117 Bilirubin, Total 0.5 mg/dL (Normal) Range: 0.0-1.2 A/G Ratio 2.0 (Normal) Range: 1.2-2.2 Globulin, Total 2.2 g/dL (Normal) Range: 1.5-4.5 Albumin, Serum 4.3 g/dL (Normal) Range: 3.5-5.5 Protein, Total, Serum 6.5 g/dL (Normal) Range: 6.0-8.5 Calcium, Serum 9.5 mg/dL (Normal) Range: 8.7-10.2 Carbon Dioxide, Total 21 mmol/L (Normal) Range: 18-29 Chloride, Serum 106 mmol/L (Normal) Range: 96-106 Potassium, Serum 4.3 mmol/L (Normal) Range: 3.5-5.2 Sodium, Serum 143 mmol/L (Normal) Range: 134-144 BUN/Creatinine Ratio 23 (Normal) Range: 9-23 eGFR If Africn Am 113 mL/min/1.73 (Normal) eGFR If NonAfricn Am 98 mL/min/1.73 (Normal) Creatinine, Serum 0.82 mg/dL (Normal) Range: 0.57-1.00 BUN 19 mg/dL (Normal) Range: 6-20 Glucose, Serum 92 mg/dL (Normal) Range: 65-99 44-Jco-473755:34 C-REACTIVE PROTEIN (17299) Comments: PATIENT NOT FASTINGPERFORMED BY: [facility] HospitalDdevvk[facility]48 [facility] [id number] C-Reactive Protein, Quant <0.3 mg/L (Normal) Range: 0.0-4.9 94-Pfb-068522:34 CBC (AUTO) (47642) Comments: PATIENT NOT FASTINGPERFORMED BY: [facility] HospitalThhiyp9676 [facility] [id number] Platelets 308 {x10E3/uL} (Normal) Range: 150-379 RDW 13.8 % (Normal) Range: 12.3-15.4 MCHC 34.8 g/dL (Normal) Range: 31.5-35.7 MCH 29.0 pg (Normal) Range: 26.6-33.0 MCV 84 fL (Normal) Range: 79-97 Hematocrit 41.4 % (Normal) Range: 34.0-46.6 Hemoglobin 14.4 g/dL (Normal) Range: 11.1-15.9 RBC 4.96 {x10E6/uL} (Normal) Range: 3.77-5.28 WBC 8.6 {x10E3/uL} (Normal) Range: 3.4-10.8 31-Muz-221792:34 ALEC (ANTINUCLEAR ANTIBODY) Comments: PATIENT NOT FASTINGPERFORMED BY: [facility] [address] [place]os [place] [id number] (51126) ALEC Direct Negative (Normal) 70-Elb-862482:51 NuSwab Vaginitis Plus Comments: PATIENT NOT FASTINGPERFORMED BY: [facility] [id number] Information: [id number] (trich/BV/GC/tavo W/O Herpes) (79311) Neisseria gonorrhoeae, Negative (Normal) CRUZ Chlamydia trachomatis, Negative (Normal) CRUZ Trich vag by CRUZ Negative (Normal) Shivani glabrata, CRUZ Negative (Normal) Comments: This test was developed and its performance characteristics determinedby [facility]. It has not been cleared or approved by the Food and DrugAdministration. The FDA has determined that such clearance orapproval is not necessary. Shivani albicans, CRUZ Positive (Abnormal) Megasphaera 1 Low - 0 {Score} Comments: Calculate total score by adding the 3 individual bacterial vaginosis(BV) marker scores together. Total score is interpreted as follows: (Normal) .Total score 0-1: Indicates the absence of BV.Total score 2: Indeterminate for BV. Additional clinical data should be evaluated to establish a diagnosis.Total score 3-6: Indicates th e presence of BV. .This test was developed and its performance characteristics determinedby [facility]. It has not been cleared or appro chapis by the Food and DrugAdministration. The FDA has determined that such clearance orapproval is not necessary. BVAB 2 Low - 0 {Score} (Normal) Atopobium vaginae Low - 0 {Score} (Normal) [id number]: Mass (define area) See Note (Normal) Comments: [facility] [address] [place], [address] 24 Comments: Patient: KELIN FLORES : 1990 (24/F) Acct Num: [id number] Phys: Otoniel Marino MD Unit Num: [id number] Loc: [facility] Specimen: [id number] Received: 01/21/15 - 1028 Spec Ty pe: Mass TISSUES TISSUES: COMMENT Correlation with clinical findings and appropriate follow up are necessary. FROZEN SECTION DIAGNOSIS A. Left neck mass, biopsy: Fibrocol lagenous tissue with mild chronic inflammation. B. Left neck mass, biopsy: Marked acute inflammation and associated atypia, favor reactive. AM: 01/21/15 GROSS DESCRIPTION A - Received fresh for frozen section consultation labeled with the patient's name is a specimen designated left neck mass. The specimen consists of an irregular fragment of red-shaikh soft tissue measuring 1.5 x 1 x 0.7 cm. The specimen is bisected and submitted in its entirety for frozen section consultation in one block. B - Received fresh for frozen section consultation labeled with the patient's name is a specimen designated left neck mass. The specimen consists of four irregular fragments of red-shaikh soft tissue measuring in aggregate 0.8 x 0.3 x 0.1 cm. The fragments are submitted in their entirety for frozen section consultation in one block. / AM: 01/21/15 TC:2 CPT: 02531 x2, 95387 x2, 57023 x2 HEADER OPERATION: Incisional biopsy neck mass PRE-OP DIAGNOSIS: Soft tissue neck tumor TISSUE SUBMITTED: A - Neck mass left (FS), B - Left neck mass (FS) MICROSCOPIC DESCRIPTION Slides are reviewed. MICROSCOPIC DIAGNOSIS A. Left neck mass, biopsy: A fragment of fibrocon nective tissue with mild chronic inflammation. Negative for malignancy in the submitted specimen. B. Left neck mass, biopsy: Fragments of fibroconnective tissue with acute and chronic inflam mation and a few minute fragments of adjacent skeletal muscle tissue. Special stains for acid fast bacilli and fungi are negative for organisms; matched controls are appropriate. Negative for m alignancy in the submitted specimen. SJ: 01/22/15 Signed Evgeny Morin 01/22/15 <signature on file> 21-Jan-20158:00 ,Urine Comments: [facility] [address] [place], [address] HCGUQUAL Negative {Negative} (Normal) Comments: Very dilute urine specimens, as indicated by a low specificgravity, may not contain automotive sales representative levels of hCG.If is still suspected, a first morning urinespecimen should be collected 48 hours later and tested. :37 CBC, Platelets & Auto Diff Comments: PATIENT NOT FASTINGPERFORMED BY: RONAK [facility]Tr[facility] HospitalHwhmlb0396 [facility] [id number] Information: [id number] (75011) Immature Grans (Abs) 0.0 {x10E3/uL} (Normal) Range: 0.0-0.1 Immature Granulocytes 0 % (Normal) Baso (Absolute) 0.1 {x10E3/uL} (Normal) Range: 0.0-0.2 Eos (Absolute) 0.2 {x10E3/uL} (Normal) Range: 0.0-0.4 Monocytes(Absolute) 0.5 {x10E3/uL} (Normal) Range: 0.1-0.9 Lymphs (Absolute) 3.2 {x10E3/uL} (Abnormal) Range: 0.7-3.1 Neutrophils (Absolute) 4.1 {x10E3/uL} (Normal) Range: 1.4-7.0 Basos 1 % (Normal) Eos 2 % (Normal) Monocytes 7 % (Normal) Lymphs 40 % (Normal) Neutrophils 50 % (Normal) Platelets 329 {x10E3/uL} (Normal) Range: 150-379 RDW 13.5 % (Normal) Range: 12.3-15.4 MCHC 33.3 g/dL (Normal) Range: 31.5-35.7 MCH 28.2 pg (Normal) Range: 26.6-33.0 MCV 85 fL (Normal) Range: 79-97 Hematocrit 42.7 % (Normal) Range: 34.0-46.6 Hemoglobin 14.2 g/dL (Normal) Range: 11.1-15.9 RBC 5.03 {x10E6/uL} (Normal) Range: 3.77-5.28 WBC 8.1 {x10E3/uL} (Normal) Range: 3.4-10.8 :37 Metabolic Panel, Comprehensive Comments: PATIENT NOT FASTINGPERFORMED BY: RONAK [facility]WeNetworkTrinit[facility] HospitalLcoxcf1685 [facility] [id number] ([id number]) ALT (SGPT) 13 [iU]/L (Normal) Range: 0-32 AST (SGOT) 17 [iU]/L (Normal) Range: 0-40 Alkaline Phosphatase, S 62 [iU]/L (Normal) Range: 39-117 Bilirubin, Total 0.5 mg/dL (Normal) Range: 0.0-1.2 A/G Ratio 2.1 (Normal) Range: 1.1-2.5 Globulin, Total 2.2 g/dL (Normal) Range: 1.5-4.5 Albumin, Serum 4.6 g/dL (Normal) Range: 3.5-5.5 Protein, Total, Serum 6.8 g/dL (Normal) Range: 6.0-8.5 Calcium, Serum 10.0 mg/dL (Normal) Range: 8.7-10.2 Carbon Dioxide, Total 18 mmol/L (Normal) Range: 18-29 Chloride, Serum 103 mmol/L (Normal) Range: 97-108 Potassium, Serum 4.0 mmol/L (Normal) Range: 3.5-5.2 Sodium, Serum 140 mmol/L (Normal) Range: 134-144 BUN/Creatinine Ratio 12 (Normal) Range: 8-20 eGFR If Africn Am 112 mL/min/1.73 (Normal) eGFR If NonAfricn Am 97 mL/min/1.73 (Normal) Creatinine, Serum 0.84 mg/dL (Normal) Range: 0.57-1.00 BUN 10 mg/dL (Normal) Range: 6-20 Glucose, Serum 84 mg/dL (Normal) Range: 65-99 :37 Anti-TPO Antibody (63404) Comments: PATIENT NOT FASTINGPERFORMED BY: [facility]NetworkTr[facility] HospitalSgdpim1883 [facility] [id number] Thyroid Peroxidase (TPO) Ab 7 {IU/mL} (Normal) Range: 0-34 :37 T4, FREE (THYROXINE) (96607) Comments: PATIENT NOT FASTINGPERFORMED BY: [facility]NetworkTrinit[facility] HospitalIgzkdn4994 [facility] [id number] T4,Free(Direct) 1.36 ng/dL (Normal) Range: 0.82-1.77 :37 T3, FREE (TRIDOTHYRONINE) (42438) Comments: PATIENT NOT FASTINGPERFORMED BY: [facility] [facility] [id number] Triiodothyronine,Free,Serum 3.5 pg/mL (Normal) Range: 2.0-4.4 :37 TSH (89766) Comments: PATIENT NOT FASTINGPERFORMED BY: [place] [address] [facility] [id number]; apt. 12-10-14 TSH 1.210 {uIU/mL} (Normal) Range: 0.450-4.500 Urine Drug Screen positive amphetamines :30 (Office - Urine (Normal) Drug Screen 6 Panel) (56193) Glucose, Serum 72 mg/dL (Normal) Comments: PATIENT WAS FASTINGPERFORMED BY: [facility] [id number] 1:30 Range: 65-99 :30 Lipid Panel With LDL/HDL Comments: PATIENT WAS FASTINGPERFORMED BY: [place] [id number] [facility] [id number] Information: [id number] Ratio LDL/HDL Ratio 1.7 {ratio_units} (Normal) Range: 0.0-3.2 Comments: LDL/HDL Ratio Men Women 1/2 Avg.Risk 1.0 1.5 Av g.Risk 3.6 3.2 2X Avg.Risk 6.2 5.0 3X Avg.Risk 8.0 6.1 LDL Cholesterol Calc 84 mg/dL (Normal) Range: 0-119 VLDL Cholesterol Brian 7 mg/dL (Normal) Range: 5-40 HDL Cholesterol 50 mg/dL (Normal) Comments: According to ATP-III Guidelines, HDL-C >59 mg/dL is considered anegative risk factor for CHD. Triglycerides 37 mg/dL (Normal) Range: 0-114 Cholesterol, Total 141 mg/dL (Normal) Range: 100-189 :39 LIPASE (75477) Comments: PATIENT NOT FASTINGPERFORMED BY: CB [facility] [id number]Dublin [place] [id number] Lipase, Serum 20 U/L (Normal) Range: 0-59 :39 AMYLASE (62264) Comments: PATIENT NOT FASTINGPERFORMED BY: CB [facility] Yczjps1004 [address]Dublin [place] [id number] Amylase, Serum 33 U/L (Normal) Range: 31-124 :39 HCG Qualitative, Serum (36701) Comments: PATIENT NOT FASTINGPERFORMED BY: CB [facility] Phkefc8315 [address]Dublin [place] [id number] hCG,Beta Subunit,Qual,Serum Negative m[iU]/mL (Normal) :39 CALCIFIDIOL (02478) VIT D 25 Comments: PATIENT NOT FASTINGPERFORMED BY: CB [facility] [id number] [address]ublin [place] [id number] Vitamin D, 25-Hydroxy 35.9 ng/mL (Normal) Range: 30.0-100.0 Comments: Vitamin D deficiency has been defined by the [place] [facility] and an Endocrine Society practice guideline as alevel of serum 25-OH vitamin D less than 20 ng/mL (1,2).The Endocrine Society went on to further define vitamin Dinsufficiency as a level between 21 and 29 ng/mL (2).1. IOM ([place] [employer]). 2010. Dietary reference intakes for calcium and D. [place]: The National Academies Press.2. Kelly MF, [place], Padmini CHICAS, et al. Evaluation, treatment, and prevention of vitamin D deficiency: an Endocrine Society clinical practice guideline. JCEM. 2010; 96(7):1911-30. :39 Folate (52181) Comments: PATIENT NOT FASTINGPERFORMED BY: CB [facility] [id number] [address]ublin [place] [id number] Folate (Folic Acid), Serum 12.6 ng/mL (Normal) Comments: A serum folate concentration of less than 3.1 ng/mL isconsidered to represent clinical deficiency. :39 VITAMIN B-12 (CYANOCOBALAMIN) Comments: PATIENT NOT FASTINGPERFORMED BY: RONAK [facility] Mylcwm[address] [place] [id number] (19842) Vitamin B12 703 pg/mL (Normal) Range: 211-946 :39 TSH (28040) Comments: PATIENT NOT FASTINGPERFORMED BY: [facility] Fbrkzt[address] [facility] [place] [id number] TSH 0.736 {uIU/mL} (Normal) Range: 0.450-4.500 :39 SED RATE ERYTHROCYTE (37338) Comments: PATIENT NOT FASTINGPERFORMED BY: [facility] [id number] [facility] [id number] Sedimentation Rate-Westergren 2 mm/h (Normal) Range: 0-32 :39 METABOLIC PANEL, Comments: PATIENT NOT FASTINGPERFORMED BY: [facility] Baqnms4898 [facility] [id number] Information: [id number] COMPREHENSIVE (32829) ALT (SGPT) 13 [iU]/L (Normal) Range: 0-32 AST (SGOT) 12 [iU]/L (Normal) Range: 0-40 Alkaline Phosphatase, S 68 [iU]/L (Normal) Range: 39-117 Bilirubin, Total 0.7 mg/dL (Normal) Range: 0.0-1.2 A/G Ratio 2.3 (Normal) Range: 1.1-2.5 Globulin, Total 2.1 g/dL (Normal) Range: 1.5-4.5 Albumin, Serum 4.8 g/dL (Normal) Range: 3.5-5.5 Protein, Total, Serum 6.9 g/dL (Normal) Range: 6.0-8.5 Calcium, Serum 10.4 mg/dL (Abnormal) Range: 8.7-10.2 Carbon Dioxide, Total 21 mmol/L (Normal) Range: 18-29 Chloride, Serum 101 mmol/L (Normal) Range: 97-108 Potassium, Serum 4.0 mmol/L (Normal) Range: 3.5-5.2 Sodium, Serum 141 mmol/L (Normal) Range: 134-144 BUN/Creatinine Ratio 13 (Normal) Range: 8-20 eGFR If Africn Am 113 mL/min/1.73 (Normal) eGFR If NonAfricn Am 98 mL/min/1.73 (Normal) Creatinine, Serum 0.84 mg/dL (Normal) Range: 0.57-1.00 BUN 11 mg/dL (Normal) Range: 6-20 Glucose, Serum 79 mg/dL (Normal) Range: 65-99 :39 CBC (AUTO) (80809) Comments: PATIENT NOT FASTINGPERFORMED BY: [facility]NetworkTr[facility] HospitalFdcfov1116 [facility] [id number] Platelets 348 {x10E3/uL} (Normal) Range: 150-379 RDW 13.6 % (Normal) Range: 12.3-15.4 MCHC 34.4 g/dL (Normal) Range: 31.5-35.7 MCH 29.0 pg (Normal) Range: 26.6-33.0 MCV 84 fL (Normal) Range: 79-97 Hematocrit 41.3 % (Normal) Range: 34.0-46.6 Hemoglobin 14.2 g/dL (Normal) Range: 11.1-15.9 RBC 4.90 {x10E6/uL} (Normal) Range: 3.77-5.28 WBC 10.5 {x10E3/uL} (Normal) Range: 3.4-10.8 :39 ALEC (ANTINUCLEAR ANTIBODY) Comments: PATIENT NOT FASTINGPERFORMED BY: [facility] [id number] ([id number]) ALEC Direct Negative (Normal) Plan of Care Name Dates Details Instructions ADD (attention deficit disorder) : Reviewed 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 Indication: ADD (attention deficit disorder) Current smoker : Eprescribed prescriptions (G8553) Indication: Current smoker Fatigue : *fatigue education Indication: Fatigue Current smoker : Eprescribed prescriptions (G8553) Indication: Current smoker ADD (attention deficit disorder) : Follow up in 3 months Indication: ADD (attention deficit disorder) ADD (attention deficit disorder) : Eprescribed prescriptions (G8553) Indication: ADD (attention deficit disorder) ADD (attention deficit disorder) : Flu (Influenza) *: flu shot Indication: ADD (attention deficit disorder) ADD (attention deficit disorder) : Eprescribed prescriptions (G8553) Indication: ADD (attention deficit disorder) Vaginal discharge : Eprescribed prescriptions (G8553) Indication: Vaginal discharge Multiple thyroid nodules : Reviewed Diagnostic Tests Indication: Multiple thyroid nodules Multiple thyroid nodules : Reviewed Lab Indication: Multiple thyroid nodules Mass of left side of neck : Reviewed Lab Indication: Mass of left side of neck Dysphagia : Follow up in 1 week Indication: Dysphagia Fatigue : Reviewed Lab Indication: Fatigue Fatigue : Follow up in 1 month Indication: Fatigue Anxiety : Follow up in 1 month Indication: Anxiety Nausea : Follow up in 1 month Indication: Nausea Chronic constipation : Follow up in 2 weeks Indication: Chronic constipation Nausea : Follow up - Make appt after diagnostic tests Indication: Nausea Abdominal pain : Reviewed Diagnostic Tests Indication: Abdominal pain Abdominal pain : Reviewed 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 Indication: Abdominal pain Planned Observations TSH (86490)Indication: Abnormal TSH On: 37-Eda-90981:44 Request T4, FREE (THYROXINE) (43119)Indication: Abnormal TSH On: :44 Request T3, FREE (TRIDOTHYRONINE) (99719)Indication: Abnormal TSH On: 00-Xpn-73287:43 Request METABOLIC PANEL, COMPREHENSIVE (59394)Indication: Hypercalcemia On: 71-Znh-26856:43 Request Drug Screen (7drug + Alcohol) (13965)Indication: ADD (attention deficit disorder) On: 28-Vgg-545489:51 Request Glucose (61231)Indication: Encounter for pre-employment examination On: 26-Klk-538902:35 Request Lipid Panel (14961)Indication: Encounter for pre-employment examination On: 10-Nny-528516:35 Request Urine Drug Screen (Office - Urine Drug Screen 9 Panel) (93859)Indication: ADD (attention deficit disorder) On: 98-Unm-027085:31 Request GLUCOSE TOLERANCE TEST (GTT) (57073)Indication: Fatigue On: 10-Jgt-277415:23 Request Comments: 5 hr test CALCIUM SERUM (93016)Indication: Hypercalcemia On: :23 Request Folate (51700)Indication: Fatigue On: 14-Jan-20149:26 Request Planned Encounters Medical; ADD EST VISIT - On: 30-May-2018 11:30 [facility] Sha CAM, Teri Pyle Planned Procedures THYROID ULTRASOUND (20057)By: Madhuri On: 02-Mar-2018 Intent Cecilia PINZON DO, Kathleen Ultrasound - ThyroidBy: Sayda CARROLL, On: 12-May-2015 Intent Mala Chamberlain Comments: to be done in [address] - Neck (IV Contrast Needed)By: On: 10-Dec-2014 Intent Mala Alfredo CNP Comments: dysphagia, neck mass Ultrasound - ThyroidBy: Sayda CARROLL, On: 03-Dec-2014 Intent Mala Chamberlain Toradol Injection, 30 mg (J1885)By: On: 21-Jan-2014 Intent Mala Alfredo CNP Comments: lot [id number] gmIMas, CUPOLA PATCHER Toradol Injection, 30 mg (J1885)By: On: 17-Jan-2014 Intent Cecilia Dhaliwal DO, DO, Comments: Lot:[id number]:10/16/2015Dose:30mgRoute:30mg Site:[facility]helle Connors By:EVIE signed Cecilia Ultrasound - GallbladderBy: Madhuri On: 14-Jan-2014 Cecilia Buckner DO, DO, Kathleen Planned Medications INJECTION, KETOROLAC TROMETHAMINE, PER 15 MG Ordered: 17-Jan-2014 Pending Cecilia Dhaliwal DO, DO, Kathleen INJECTION, KETOROLAC TROMETHAMINE, PER 15 MG Ordered: 21-Jan-2014 Pending Mala Alfredo CNP Instructions Name Dates Details Current smoker : How to access health information online Indication: Current smoker Current smoker : How to access health information online - Detail Indication: Current smoker Current smoker : Patient Instructions Indication: Current smoker ADD (attention deficit disorder) : How to access health information online Indication: ADD (attention deficit disorder) ADD (attention deficit disorder) : How to access health information online - Detail Indication: ADD (attention deficit disorder) ADD (attention deficit disorder) : Patient Instructions Indication: ADD (attention deficit disorder) Current smoker : How to access health information online Indication: Current smoker Current smoker : How to access health information online - Detail Indication: Current smoker Current smoker : Patient Instructions Indication: Current smoker ADD (attention deficit disorder) : How to access health information online Indication: ADD (attention deficit disorder) ADD (attention deficit disorder) : How to access health information online - Detail Indication: ADD (attention deficit disorder) ADD (attention deficit disorder) : Patient Instructions Indication: ADD (attention deficit disorder) ADD (attention deficit disorder) : How to access health information online Indication: ADD (attention deficit disorder) ADD (attention deficit disorder) : How to access health information online - Detail Indication: ADD (attention deficit disorder) ADD (attention deficit disorder) : Patient Instructions Indication: ADD (attention deficit disorder) ADD (attention deficit disorder) : How to access health information online Indication: ADD (attention deficit disorder) ADD (attention deficit disorder) : How to access health information online - Detail Indication: ADD (attention deficit disorder) ADD (attention deficit disorder) : Patient Instructions Indication: ADD (attention deficit disorder) Vaginal discharge : Patient Instructions Indication: Vaginal discharge Dysphagia, cricopharyngeal : Patient Instructions Indication: Dysphagia, cricopharyngeal ADD (attention deficit disorder) : How to access health information online - Detail Indication: ADD (attention deficit disorder) ADD (attention deficit disorder) : Patient Instructions Indication: ADD (attention deficit disorder) Fatigue : Patient Instructions Indication: Fatigue Anxiety : Patient Instructions Indication: Anxiety Nausea : Patient Instructions Indication: Nausea Nausea : Patient Instructions Indication: Nausea Chronic constipation : Patient Instructions Indication: Chronic constipation Chronic constipation : Patient Instructions Indication: Chronic constipation Encounters Office Visit On: 02-Mar-2018 8:47 Encounter Reason: Follow up for chronic medical issues - The patient feels well with minor complaints, has decreased energy level and is sleeping poorly. Patient has been compliant with instructions. Current medication u End: 02-Mar-2018 9:52 se: no side effects and considered effective by patient. Patient sleeps 4 hours per night. Nutrition: balanced diet and no supplemental vitamins & iron. The medical issues the patient is following u p for include other (ADD). weight :. Note for Follow up for chronic medical issues: nothing new -- just routine- in btw for ADDEncounter Diagnosis: BMI 32.0- 32.9,adult, Current smoker, Anxiety, Hypercalcemia, Abnormal TSH, Dysphagia, cricopharyngeal, Dust allergy, Mass of left side of neck, Left thyroid nodule, ADD (attention deficit disorder) [facility] Office Visit On: 29-Nov-2017 10:44 Encounter Reason: ADHD Medication Check - Adult - Symptoms include short attention span, easy distractibility, poor listening, forgetfulness, careless mistakes and avoiding mental effort tasks.Encounter Diagnosis: ADD (attention deficit disorder), End: 29-Nov-2017 11:27 BMI 32.0-32.9,adult, Current smoker [facility] Office Visit On: 07-Apr-2017 13:02 Encounter Reason: Follow up for chronic medical issues - The patient feels well with minor complaints (STILL FEELING TIRED), has decreased energy level and is sleeping poorly. Patient has been compliant with instructions End: 07-Apr-2017 15:14 . Current medication use: no side effects and considered effective by patient. Nutrition: balanced diet and no supplemental vitamins & iron. The medical issues the patient is following up for include other (ADD). weight :.Encounter Diagnosis: Current smoker, BMI 32.0-32.9,adult, Fatigue, Weight gain, Abnormal TSH [facility] Office Visit On: 13-Aug-2015 11:07 Encounter Reason: Follow up for chronic medical issues - The patient feels well with minor complaints (STILL FEELING TIRED) and is sleeping well. Current medication use: no side effects and considered effective by patien End: 13-Aug-2015 16:10 t. The medical issues the patient is following up for include other (ADD).Encounter Diagnosis: Body mass index (BMI) 23.0-23.9, adult, Current smoker, ADD (attention deficit disorder), Fatigue, Mass of left side of neck [facility] Phone Encounter On: 22-May-2015 11:44 Encounter Diagnosis: ADD (attention deficit disorder) End: 22-May-2015 11:50 [facility] Office Visit On: 17-Apr-2015 10:26 Encounter Reason: Follow up acute care visit - The patient feeling better since last seen and improving. Patient has been compliant with instructions. Current medication use: no side effects, compliant with dosing regime End: 17-Apr-2015 11:12 n and considered effective by patient. Patient sleeps 7 hours per night. Impact of disease: emotional impact-moderate. Nutrition: balanced diet and supplemental vitamins. The medical issues the patient is following up for include other (ADD ). Encounter Diagnosis: ADD (attention deficit disorder), Current smoker, Poor concentration, Shift work sleep disorder [facility] Office Visit On: 18-Mar-2015 9:44 Encounter Reason: Follow up Meds - The patient feels well with minor complaints, has decreased energy level and is sleeping well. Patient has been compliant with instructions. Current medication use: no side effects and End: 18-Mar-2015 10:30 compliant with dosing regimen. Patient sleeps 8 hours per night.Encounter Diagnosis: ADD (attention deficit disorder), Poor concentration, Shift work sleep disorder [facility] Office Visit On: 28-Feb-2015 13:37 Encounter Reason: Vaginal Discharge - The last clinic visit was 3 day(s) ago. No changes in management were made at the last visit. Symptoms include vaginal discharge (green-yellow), vaginal itching, vaginal burning and End: 02-Mar-2015 19:24 vaginal odor. The patient describes the vaginal discharge as yellow, green and watery. Onset was sudden 3 day(s) ago. The symptoms occur constantly. The episodes occur daily and last for 3 days. The pat ient describes this as moderate in severity and unchanged. Symptoms are not exacerbated by tight clothing, soaps, vaginal sprays, powders, spermicides, intercourse or bowel movements. Symptoms are not r elieved by loose clothing, drying the area, tub baths, douching or corn starch. Associated symptoms do not include dysuria, urinary frequency, urinary urgency, rash, pelvic pain, abdominal pain, post-co ital bleeding, intermenstrual bleeding, dyspareunia or fever. The patient is not currently being treated for this problem. By report there is good compliance with treatment. Pertinent medical history in cludes vaginitis and yeast infections. Risk factors do not include multiple sexual partners, unprotected sex, vaginal instrumentation, vaginal foreign body, intrauterine device, chemical douches, vagina l deodorants, vaginal lubricants, hormonal changes or chemotherapy. The last menstrual period began 02/18/15. For contraception she uses nothing. Previous presentation included discharge, itching and odor.Encounter Diagnosis: Vaginal discharge [facility] Annotation/Addendum On: 10-Dec-2014 15:39 Encounter Diagnosis: Lipoma of other skin and subcutaneous tissue End: 10-Dec-2014 15:44 [facility] Office Visit On: 10-Dec-2014 8:22 Encounter Reason: Follow up tests - Diagnostic tests include ultrasound (thyroid). Date: (12/05/14).Encounter Diagnosis: Multiple thyroid nodules, Dysphagia, cricopharyngeal, Mass of left side of neck End: 10-Dec-2014 10:36 [facility] Office Visit On: 03-Dec-2014 9:06 Encounter Reason: Lumps - The onset of the lumps has been sudden and has been occurring in a persistent pattern for 2 weeks. The course has been increasing. The lumps are described as moderate., End: 03-Dec-2014 9:33 [ADDITIONAL REASON] Dysphagia - The last clinic visit was 2 week(s) ago. Difficult or painful swallowing is noted in the mid esophagus. There is no radiation. The patient describes this as worsening. A ssociated symptoms do not include hoarseness, dysarthria, weak voice, drooling, wheezing, shortness of breath, hematemesis, lightheadedness, fever, chills, fatigue or weakness. The patient is not currently being treated for this problem. Encounter Diagnosis: Dysphagia, Left thyroid nodule [facility] Office Visit On: 25-Oct-2014 9:04 Encounter Reason: Nurse procedure visit - Reason for visit: other (drug screen ).Encounter Diagnosis: ADD (attention deficit disorder) End: 28-Oct-2014 7:34 [facility] Office Visit On: 16-Sep-2014 10:01 Encounter Reason: Follow up acute care visit - The patient feeling better since last seen and improving. Patient has been compliant with instructions. Current medication use: no side effects and compliant with dosing reg End: 16-Sep-2014 10:40 imen. Patient sleeps 7 hours per night. Impact of disease: emotional impact-mild. Nutrition: balanced diet and supplemental vitamins. The medical issues the patient is following up for include other (ADD ).Encounter Diagnosis: ADD (attention deficit disorder), Abrasion of sclera of right eye, initial encounter [facility] Office Visit On: 08-Aug-2014 10:34 Encounter Reason: Follow up acute care visit - The patient feels the same. Patient has been compliant with instructions. Current medication use: experiencing side effects (strattera made her feel flat affect with no feel End: 08-Aug-2014 11:39 ings at all, in a dense state ) and not considered effective by patient. Patient sleeps 7 hours per night. Impact of disease: emotional impact-moderate. Nutrition: balanced diet and supplemental vitam ins. The medical issues the patient is following up for include other (ADD).Encounter Diagnosis: ADD (attention deficit disorder), Work Physical (V70.5) [facility] Office Visit On: 18-Jul-2014 12:04 Encounter Diagnosis: ADD (attention deficit disorder) End: 19-Jul-2014 6:59 [facility] Office Visit On: 05-Jul-2014 10:14 Encounter Reason: Fatigue - The last clinic visit was 2 month(s) ago. No changes in management were made at the last visit. Symptoms include fatigue, poor sleep, impaired memory and impaired concentration. Onset was sudd End: 05-Jul-2014 11:27 en. The symptoms occur constantly. The patient describes this as worsening.Encounter Diagnosis: Fatigue, Anxiety, Poor concentration [facility] Office Visit On: 07-Jun-2014 10:39 Encounter Diagnosis: Anxiety, Irritability, Fatigue End: 07-Jun-2014 11:36 [facility] Office Visit On: 10-Apr-2014 9:25 Encounter Reason: FormsEncounter Diagnosis: Anxiety, Easily distractable on examination End: 10-Apr-2014 10:17 [facility] Office Visit On: 28-Feb-2014 10:23 Encounter Reason: Nausea - The last clinic visit was 2 week(s) ago. No changes in management were made at the last visit. Symptoms include nausea. Symptom onset was gradual. There is no known event that preceded symptom End: 28-Feb-2014 11:30 onset. The symptoms occur constantly. The patient describes this as severe and worsening. Associated symptoms include dizziness (of and on) and fatigue, while associated symptoms do not include diarrhea , constipation, dehydration or headache. The patient is not currently being treated for this problem.Encounter Diagnosis: Nausea, Heartburn, Kidney stone, Irritability [facility] Office Visit On: 21-Jan-2014 16:32 Encounter Reason: Follow up acute care visit - The medical issues the patient is following up for include All identified problems below and other (kidney stone ).Encounter Diagnosis: Kidney stone, Hypercalcemia, Fatigue, Chronic constipation End: 21-Jan-2014 18:04 [facility] Office Visit On: 17-Jan-2014 10:44 Encounter Reason: Injections - The medication the patient is here to receive is other (toradol).Encounter Diagnosis: Kidney stone End: 17-Jan-2014 13:47 [facility] Phone Encounter On: 17-Jan-2014 9:15 Encounter Diagnosis: Hypercalcemia, Kidney stone End: 17-Jan-2014 9:25 [facility] Office Visit On: 14-Jan-2014 8:21 Encounter Reason: Nausea - The last clinic visit was 2 week(s) ago. No changes in management were made at the last visit. Symptoms include nausea. Symptom onset was gradual. There is no known event that preceded symptom End: 14-Jan-2014 9:36 onset. The symptoms occur constantly. The patient describes this as severe and worsening. Associated symptoms include dizziness (of and on) and fatigue, while associated symptoms do not include diarrhea , constipation, dehydration or headache. The patient is not currently being treated for this problem., [ADDITIONAL REASON] Fatigue - The last clinic visit was 2 week(s) ago. No changes in management were made at the last visit. Symptoms include fatigue and poor sleep. Onset was sudden. The symptoms occur constantly. The patient describes this as worsening. Encounter Diagnosis: Nausea, Fatigue, Abdominal Pain,RUQ(789.01), Chronic constipation, Heartburn [facility] Office Visit On: 03-Apr-2013 12:41 Encounter Reason: Follow up ER - Reason for hospitalization note: (woke up with chest pain and lower ab pain. Mom took her to er and they did test and CT scan showed veins in pelvic area are inflamed and so he put me on End: 03-Apr-2013 13:22 vicidin. I do have a hx of ovarian cyst s not sure if flare up from that.). Patient has been compliant with instructions. The patient feels well with minor complaints, has good energy level and is sleep ing poorly. Patient sleeps 5 hours per night. Nutrition: balanced diet.Encounter Diagnosis: Chronic constipation, Female pelvic congestion syndrome, Abdominal pain, Pelvic pain in female [facility] Payers David Maciel; a guarantor
--- OUTSIDE RECORDS SUMMARY | 2018-05-09 16:54 | XMS RPT_ITS | Continuity of Care Document ---
:1990 Author Organization [facility] Address [facility] [address] [place] [address] Phone Care Team Providers Name Role Phone Cecilia Dhaliwal DO Unavailable Sha CAM, Teri Pyle Unavailable Corwin Delacruz MD Unavailable Elida CAM, Yonathan Crenshaw Unavailable JACINTO Degroot Unavailable Unavailable Phil Marlow Unavailable Unavailable Long ETHYLENE PLANT OPERATORSirena Paiz Unavailable Unavailable Unavailable Unavailable Problems Name Dates Details Abnormal TSH (R79.89, 790.6) Status: Active ADD (attention deficit disorder) (F98.8, 314.00) Comments: vyvanse working well .Improved inattentiveness/distractibility, impulsiveness, physical restlessness, mental restlessness, disorganization/poor planning, boredom, task switchin/procastination/incompleti on, interpersonal difficulties, sleep.Denies current alcohol/drug abusemeet criteriaControlled Substance agreement 11-29-17 drug screen 11-29-17 was off for and . back to work and adrián ing errors done lactating. was on 70 mg in past when workign and school. does not think need that dose. think could start with 30 mg. 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: Active Dysphagia, cricopharyngeal (R13.13, 787.23) Comments: enlarged neck with dyphagia, thyroid ultrasound small nodule, impeding airway will CT and send to ENT Status: Active Easily distractable on examination (F90.0, 799.51) Status: Active Fatigue (R53.83, 780.79) Status: Active Female pelvic congestion syndrome (N94.89, 625.5) Status: Active Hypercalcemia (E83.52, 275.42) Status: Active Kidney stone (N20.0, 592.0) Comments: small asx Status: Active Left thyroid nodule (E04.1, 241.0) Status: Active Lipoma of other skin and subcutaneous tissue (D17.39, 214.1) Status: Active Mass of left side of neck (R22.1, 784.2) Comments: Ultrasound of thyroid small nodules still with hardness and dysphagia enlarging.Dr carr did surgery ijn 01/29, removed it, dont know aht it is Status: Active Multiple thyroid nodules (E04.2, 241.1) Comments: RT 4y5u5id and left 4u6w7xc with normal regional lymph nodes follow 6 months ultrasound Status: Active Poor concentration (R41.840, 799.51) Status: Active Pregnancies () Comments: 1 Status: Active 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 Status: Active Vaginal Delivery Comments: Status: Active Weight gain (R63.5, 783.1) Status: Active Medications Name Dates Details Vyvanse 70 MG Oral Capsule 1 (one) Capsule in am for 0 days Quantity: 30 {Capsule} Refills: 0 Ordered:02-Jan-2018 Bonezzi Teri CAM Start : 02-Jan-2018 Active Comments:DX: F98.8thirty FLUCONAZOLE, [...] or worsen. Status: Inactive as of 17-Apr-2015 Body mass index (BMI) 23.0-23.9, adult (Z68.23, V85.1) Status: Resolved as of 29-Nov-2017 Dysphagia (R13.10, 787.20) Status: Inactive as of 17-Apr-2015 Encounter for pre-employment examination (Z02.1, V70.5) Status: Inactive as of 16-Sep-2014 Heartburn (R12, 787.1) Status: Inactive as of 16-Sep-2014 Irritability (R45.4, 799.22) Status: Resolved as of 07-Jun-2014 Nausea (R11.0, 787.02) Status: Inactive as of 18-Jul-2014 Pelvic pain in female (R10.2, 625.9) Status: Inactive as of 18-Jul-2014 Unspecified Diagnosis Status: Inactive as of 17-Apr-2015 Vaginal discharge (N89.8, 623.5) Status: Inactive as of 17-Apr-2015 Procedures Procedure Dates Details Thyroid cyst Completed Comments: January 2015 Date Value Details 20-Oct-2017 Soft Tissue Neck WITH Contrast Result: Comments: See Note; NOTES: [facility] Imaging Services [address] [place] [address] Soft Tissue Neck WITH Contrast MR#: [id number] Acct: [id number] Name: KELIN MACIEL Cathleen p #: [id number] : 1990 F 27 From: Dante Myers MD PCP: Cecilia Dhaliwal DO Status: REG CLI Study: Soft Tissue Neck WITH Contrast Date of Exam: 10/20/17 Exam# [id number] Ordering Dr: Ryan Marino MD STUDY: CT [...] soft tissues are unremarkable. 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 Phlegmonou s features without organized abscess. Electronically Signed: Dante Myers, at 10:43 EDT Tel , Service support , CC: Otoniel lagos MD; Cecilia Dhaliwal DO Patient Access Associate: Signed 05-Apr-2015 Emergency Department Summary Result: Comments: See Note; NOTES: [facility] Medical Records Department [address] [place] [address] Emergency Department Summary MR#: [id number] Acct: [id number] Name: KELIN FLORES Rep #: [id number] : 1990 24 From: Kimi Mario MD PCP: Cecilia Dhaliwal DO Status: REPLACED BY [facility] DATE OF SERVICE: 04/05/2015 CHIEF COMPLAINT: Finger [...] an Alumafoam splint. She is referred to [facility] for outpatient followup and she was given a note for work restricti ons. DISPOSITION: Discharge. DIAGNOSIS: Left ring finger contusion. Kimi Mario MD T: NTS JOB: [id number] 04/05/15441 <Electronically signed by Kimi Mario MD> Date __ Kimi Mario MD Cosigner Signature (If Indicated): Date CC: Cecilia Dhaliwal DO Date Dictated : 04/05/15221 Date Transcribed: 04/05/15221 Patient Access Associate: Signed 05-Apr-2015 Discharge Instruction Result: Comments: See Note; NOTES: [facility] Medical Records Department [address] [place] [address] Discharge Instruction 04/05/15215 MR#: [id number] Acct: [id number] Name: KELIN FLORES Rep #: [id number] : 1990 24 From: Kimi Mario MD [...] problems, contact your doctor. Call [facility] ([phone]) or report to the [facility] Emergency Room. Call 911 if necessary. 04/05/15220 <Electronically signed by Kimi Mario MD> Date Kimi Mario MD [facility] Signature (If Indicated): Date CC: Cecilia Dhaliwal DO 05-Apr-2015 Hand Min 3 Views Result: Comments: See Note; NOTES: [facility] Imaging Services [address] [place] [address] Verdana 4d Hand Min 3 Views MR#: [id number] Acct: [id number] Name: Maine FLORES Rep #: [id number] : 1990 F 24 From: Jadon Bustamante PCP: Cecilia Dhaliwal DO Status: REG ER Study: Hand Min 3 Views Date of Exam: 04/05/15 Exam# [id number] Ordering Dr: Kimi Mario MD [facility] DY: X-RAY - LEFT HAND REASON FOR [...] the hand. Elect ronically Signed: Jadon Bustamante DO at 2:17 EST , Service support [phone], RAD/Hand Min 3 Views IMPRESSION: Normal x-ray examinat ion of the hand. Electronically Signed: Jadon Bustamante DO at 2:17 EST , Service support [phone], CC: Kimi Mario MD; Cecilia Dhaliwal DO Patient Access Associate: Signed 06-Feb-2015 Operative Report Result: Comments: See Note; NOTES: [facility] Medical Records Department [address] [place] [address] Operative Report MR#: [id number] Acct: [id number] Name: DAVID FLORES Rep #: [id number] : 1990 From: Ryan Marino MD PCP: Cecilia Dhaliwal DO Status: [facility] DATE OF SERVICE: 01/21/2015 DATE OF PROCEDURE: [...] condition. Otoniel Marino MD T: NTS JOB: [id number] 02/06/15 0905 <Electronically signed by Ryan Marino MD> Date ___ Ryan Marino MD Cosigner Signature (If Indicated): Date CC: Otoniel Marino MD; Cecilia Dhaliwal DO Date Dictated: 01/21/15 1225 Date Transcribed: 01/21/151224 Patient Access Associate: Signed 21-Jan-2015 Discharge Instruction Result: Comments: See Note; NOTES: [facility] Medical Records Department [address] [facility] [place] [address] Instructions for Home/Discharge Instructions 01/21/15 1141 MR#: [id number] Acct: [id number] Name: KELIN FLORES Rep #: [id number] : 1990 From: Ryan Marino MD PCP: Cecilia Dhaliwal DO Status: REG CAC Discharge Diet: Light diet - advance as [...] MD> Date Ryan Marino MD CC: Cecilia Madhuri PINZON 31-Dec-2014 Orbit Face Neck W/WO Contrast Result: Comments: See Note; NOTES: [facility] Imaging Services [address] [place] [address] Verdana 4d Orbit Face Neck W/WO Contrast MR#: [id number] Acct: [id number] [facility] e: KELIN FLORES Rep #: [id number] : 1990 F 24 From: Irina Belcher PCP: Cecilia Dhaliwal DO Status: REG CLI Study: Orbit Face Neck W/WO Contrast Date of Exam: 12/31/14 Exam# [id number] Saritha middleton Dr: Ryan Marino MD STUDY: [...] CT. Normal bilateral parotid glands. Normal bilateral android programmer spaces. Normal bilateral parapharynge al spaces. Normal [...] at 10:21 EST Tel , Service support [phone], N.B. : The above information has been verbally conveyed by Irina Belcher MD to Dr. Delacruz, covering physician, on 12/31/2014 10:13:34 (ET). CC: Otoniel Marino MD; Cecilia Dhaliwal DO Patient Access Associate: Signed 10-Dec-2014 Soft Tissue Neck WITH Contrast Result: Comments: See Note; NOTES: [facility] Imaging Services [address] [place] [address] Verdana 4d Soft Tissue Neck WITH Contrast MR#: [id number] Acct: [id number] Na me: KELIN FLORES Rep #: [id number] : 1990 F 24 From: Basilio Agudelo MD PCP: Cecilia Dhaliwal DO Status: REG CLI Study: Soft Tissue Neck WITH Contrast Date of Exam: 12/10/14 Exam# [id number] [facility] Dr: Mala Alfredo STUDY: CT SOFT TISSUE [...] Both parotid glands are normal. Normal bilateral android programmer spaces. Normal bilatera l parapharyngeal spaces. Normal [...] MD at 11:54 EDT , Service support [phone], CC: Mala Alfredo; Cecilia Dhaliwal DO Patient Access Associate: Signed 05-Dec-2014 Thyroid Result: Comments: See Note; NOTES: [facility] Imaging Services [address] [place] [address] Verdana 4d Thyroid MR#: [id number] Acct: [id number] Name: KELIN FLORES Rep #: [id number] : 1990 F 24 From: Joby Hurd MD PCP: Cecilia Dhaliwal DO Status: REG CLI Study: Thyroid Date of Exam: 12/05/14 Exam# [id number] Ordering Dr: Mala Alfredo STUDY: THYROID UL [...] at 9:37 EDT Tel , Service support [phone], CC: Mala Alfredo; Cecilia Dhaliwal DO Patient Access Associate: Signed 15-Jan-2014 Gallbladder Result: Comments: See Note; NOTES: [facility] Imaging Services [address] [place] [address] Ultrasound Report MR#: [id number] Acct: [id number] Name: KELIN FLORES Rep #: [id number] : 1990 F 23 From: Heriberto Falk MD PCP: Cecilia Dhaliwal DO Status: REG CLI Study: Gallbladder Date of Exam: 01/15/14 Exam# [id number] Ordering Dr: Cecilia Dhaliwal DO STUDY: ABDOMINA [...] MD at 11:12 EST , Service support [phone], CC: Cecilia Dhaliwal DO Patient Access Associate: Signed Social History Name Dates Details Alcohol Use: Occasional alcohol use. 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 Status: Active Living Situation: Lives with domestic partner. Status: Active No Drug Use Status: Active Pets/Animals Comments: none Status: Active Tobacco use: Current every day smoker. Comments: 3 or 4 qd Status: Active Smoking Status Name Dates Details Current every day smoker Vital Signs Date Test Result Details :48 Pulse 104 /min Comments: Pattern: Regular Respiration [...] kg/m2 Body Surface Area Calculated 2.06 m2 06-Owy-824449:19 Pulse 83 /min Comments: Pattern: Regular Respiration [...] kg/m2 Body Surface Area Calculated 1.86 m2 11-Wrn-195512:48 Temperature 100.7 f Comments: Method: Oral Pulse [...] 1.86 m2 Results Date Description Value Details 50-Eqk-96298:00 ASP DONE IN LAB See Note Comments: [facility] [address] [place], [place], [id number] (Normal) Comments: Patient: KELIN MACIEL : 1990 (27/F) Acct Num: [id number] Phys: Otoniel Marino MD Unit Num: [id number] Loc: LAB Specimen: [id number] Received: 10/13/17 - [...] for cytologystudy. / AM:rehan 10/13/17 TC:5 CPT: 00913, 27002, 15050 CYTOLOGY STUDY Slides are reviewed. DIAGNOSIS CYTOLOGY Fine needle aspiration, midline neck mass (smears and cell block): Scant skeletal muscle fragments are present. No evidence of maligna ncy. AM:rehan 10/14/17 HEADER OPERATION: FNA midline neck mass PRE- OP DIAGNOSIS: Midline neck mass TISSUE SUBMITTED: FNA midline neck mass, smear and fluid for cytology, cell block Signed Kilo Lesli 10/14/17 <signature on file> :3 Cytomegalovirus (CMV) Ab, 8.40 U/mL Comments: PATIENT NOT FASTINGPERFORMED BY: [employer] Xuxyuy7372 [facility] [id number] 4 IgG (Abnormal) Range: 0.00-0.59 Comments: Negative <0.60 Equivocal 0.60 - 0.69 Positive >0.69 :3 Cytomegalovirus (CMV) Ab, <30.0 AU/mL Comments: PATIENT NOT FASTINGPERFORMED BY: [employer] Zotdij4575 [facility] [id number] 4 IgM (Normal) Range: 0.0-29.9 Comments: Negative <30.0 Equivocal 30.0 - 34.9 Positive >34.9 A positive result is generally indicative of acute infection, reactivation or persistent IgM production. :34 EBV Acute Infection Antibodies Comments: PATIENT NOT FASTINGPERFORMED BY: [employer] Idrffz6260 [facility] [id number] Interpretation: SPRCS (Normal) Comments: EBV Interpretation Chart . Interpretation EBV-IgM EA(D)-IgG VCA-IgG EBNA-IgG . EBV Seronegative - - - - Early Phase + - - - Acute Primary + +or- + - Infection Convalescence/Past - +or- + + Infection Reactivated +or- + + + Infection + Antibody Present - Antibody Absent :34 Specimen Status Report Comments: PATIENT NOT FASTINGPERFORMED BY: 91 WirelessMeadowview Psychiatric HospitalXxvccz2329 [facility] [id number] :3 Written Authorization WAR (Normal) Comments: PATIENT NOT FASTINGPERFORMED BY: [facility] Clpjjr4365 [facility] [facility] [place] [id number] 4 Comments: Written Authorization Received.Authorization received from BEATRIZ PAEZ LPN [id number] by Letha Aguilar :34 Anti-TPO Antibody (96718) Comments: PATIENT NOT FASTINGPERFORMED BY: [facility] Bprxva3674 [address] [facility] [place] [id number] Liver-Kidney Microsomal Ab <1.0 {Units} (Normal) Range: 0.0-20.0 Comments: Negative 0.0 - 20.0 Equivocal 20.1 - 24.9 Positive >24.9 . LKM type 1 antibodies are detected in patients with autoimmune hepatitis type 2 and in up to 8% of patients with chronic HCV infection. :34 TSH (49745) Comments: PATIENT NOT FASTINGPERFORMED BY: [facility] Tliqar5349 [facility] [facility] [place] [id number] TSH 0.702 {uIU/mL} (Normal) Range: 0.450-4.500 :34 T4, FREE (THYROXINE) (61148) Comments: PATIENT NOT FASTINGPERFORMED BY: [facility] Bcalnc9212 [facility] [place] [id number] T4,Free(Direct) 1.36 ng/dL (Normal) Range: 0.82-1.77 :34 T3, FREE (TRIDOTHYRONINE) (70299) Comments: PATIENT NOT FASTINGPERFORMED BY: [facility] Exzzkp1309 [address] [facility] [place] [id number] Triiodothyronine,Free,Serum 2.9 pg/mL (Normal) Range: 2.0-4.4 :23 HgA1C , Office (97895) HgA1C , Office 4.9 % (Normal) Range: 4.6 - 7.1 :34 CALCIFIDIOL (71093) VIT D 25 Comments: PATIENT NOT FASTINGPERFORMED BY: [facility] Zglrwx5431 [facility] [facility] [place] [id number] Vitamin D, 25-Hydroxy 16.0 ng/mL (Abnormal) Range: 30.0-100.0 Comments: Vitamin D deficiency has been defined by the [place] of[place]icine and an Endocrine Society practice guideline as alevel of serum 25-OH vitamin D less than 20 ng/mL (1,2).The Endocrine Society went on to further define vitamin Dinsufficiency as a level between 21 and 29 ng/mL (2).1. IOM ([place] of Medicine). 2010. Dietary reference intakes for calcium and D. [place]: The National Academies Press.2. Kelly MF, Rocky SANCHEZ, Padmini CHICAS, et al. Evaluation, treatment, and prevention of vitamin D deficiency: an Endocrine Society clinical practice guideline. JCEM. 2010; 96(7):1911-30. 15-Ndd-564649:34 Folate (26257) Comments: PATIENT NOT FASTINGPERFORMED BY: [employer] Ohxvyy2697 [address] [place] [id number] Folate (Folic Acid), Serum 14.3 ng/mL (Normal) Comments: A serum folate concentration of less than 3.1 ng/mL isconsidered to represent clinical deficiency. 23-Lxk-948914:34 VITAMIN B-12 (CYANOCOBALAMIN) Comments: PATIENT NOT FASTINGPERFORMED BY: [employer] Ftwzhk6222 [address] [place] [id number] (54005) Vitamin B12 734 pg/mL (Normal) Range: 232-1245 02-Jql-787637:34 SED RATE ERYTHROCYTE (89825) Comments: PATIENT NOT FASTINGPERFORMED BY: CB [facility] Bveicv1129 [address] [place] [id number] Sedimentation Rate-Westergren 2 mm/h (Normal) Range: 0-32 18-Kpp-804109:34 RHEUMATOID FACTOR-QUANT (37069) Comments: PATIENT NOT FASTINGPERFORMED BY: Celery [facility] Wbnrdx7153 [address] T[place] HoldingsDublin [place] [id number] RA Latex Turbid. <10.0 {IU/mL} (Normal) Range: 0.0-13.9 50-Tmt-445928:34 METABOLIC PANEL, COMPREHENSIVE Comments: PATIENT NOT FASTINGPERFORMED BY: LabCoMeadowview Psychiatric HospitalFferwp9735 [facility] [id number] (67503) ALT (SGPT) 11 [iU]/L (Normal) Range: 0-32 [...] Glucose, Serum 92 mg/dL (Normal) Range: 65-99 70-Rtp-411757:34 C-REACTIVE PROTEIN (53968) Comments: PATIENT NOT FASTINGPERFORMED BY: [facility]ieMunising [facility] Hospital6370 [facility] [id number] C-Reactive Protein, Quant <0.3 mg/L (Normal) Range: 0.0-4.9 27-Uyn-110795:34 CBC (AUTO) (48153) Comments: PATIENT NOT FASTINGPERFORMED BY: [facility]ieM[facility]ising [facility] Hospital6370 [facility] [id number] Platelets 308 {x10E3/uL} (Normal) Range: 150-379 RDW 13.8 % (Normal) Range: 12.3-15.4 MCHC 34.8 g/dL (Normal) Range: 31.5-35.7 MCH 29.0 pg (Normal) Range: 26.6-33.0 MCV 84 fL (Normal) Range: 79-97 Hematocrit 41.4 % (Normal) Range: 34.0-46.6 Hemoglobin 14.4 g/dL (Normal) Range: 11.1-15.9 RBC 4.96 {x10E6/uL} (Normal) Range: 3.77-5.28 WBC 8.6 {x10E3/uL} (Normal) Range: 3.4-10.8 99-Igm-739201:34 ALEC (ANTINUCLEAR ANTIBODY) Comments: PATIENT NOT FASTINGPERFORMED BY: LabCretia's CreationsMeadowview Psychiatric HospitalLbecne4902 [facility] [id number] (64820) ALEC Direct Negative (Normal) 73-Nvg-560357:51 NuSwab Vaginitis Plus Comments: PATIENT NOT FASTINGPERFORMED BY: LabCretia's Creations[address] [id number] Information: [id number] (trich/BV/GC/tavo W/O Herpes) (43381) Neisseria gonorrhoeae, Negative (Normal) CRUZ Chlamydia trachomatis, Negative (Normal) CRUZ Trich vag by CRUZ Negative (Normal) Shivani glabrata, CRUZ Negative (Normal) Comments: This test was developed and its performance characteristics determinedby [employer]. It has not been cleared or approved [...] was developed and its performance characteristics determinedby [employer]andsave. It has not been cleared or appro chapis by the Food and DrugAdministration. The FDA has determined that such clearance orapproval is not necessary. BVAB 2 Low - 0 {Score} (Normal) Atopobium vaginae Low - 0 {Score} (Normal) : Mass (define area) See Note (Normal) Comments: [facility] [address] [place], [address] 24 Comments: Patient: KELIN FLORES : 1990 (24/F) Acct Num: [id number] Phys: Jamila CAM,[place] Unit Num: [id number] Loc: [facility] Specimen: [id number] Received: 01/21/15 - 1028 Spec Ty pe: [...] one block. / AM: 01/21/15 TC:2 CPT: 26036 x2, 28347 x2, 48546 x2 HEADER OPERATION: Incisional biopsy neck mass [...] for m alignancy in the submitted specimen. SJ:dana 01/22/15 Signed Evgeny Morin 01/22/15 <signature on file> :00 ,Urine Comments: [facility] [address] [place], [address] HCGUQUAL Negative {Negative} (Normal) Comments: Very dilute urine specimens, as indicated by a low specificgravity, may not contain collections representative levels of hCG.If is still suspected, a first morning urinespecimen should be collected 48 hours later and tested. 32-Fxv-02224:37 CBC, Platelets & Auto Diff Comments: PATIENT NOT FASTINGPERFORMED BY: LabCoMeadowview Psychiatric HospitalQnejxc7055 [facility] [id number] Information: [id number] (85079) Immature Grans (Abs) 0.0 {x10E3/uL} (Normal) Range: [...] Panel, Comprehensive Comments: PATIENT NOT FASTINGPERFORMED BY: LabCoMeadowview Psychiatric HospitalKksdqe2951 [facility] [id number] (27629) ALT (SGPT) 13 [iU]/L (Normal) Range: 0-32 [...] mg/dL (Normal) Range: 65-99 :37 Anti-TPO Antibody (62702) Comments: PATIENT NOT FASTINGPERFORMED BY: [place] 2927270 [facility] [id number] Thyroid Peroxidase (TPO) Ab 7 {IU/mL} (Normal) Range: 0-34 :37 T4, FREE (THYROXINE) (24349) Comments: PATIENT NOT FASTINGPERFORMED BY: [address] [id number] T4,Free(Direct) 1.36 ng/dL (Normal) Range: 0.82-1.77 :37 T3, FREE (TRIDOTHYRONINE) (56041) Comments: PATIENT NOT FASTINGPERFORMED BY: [place] 2927270 [facility] [id number] Triiodothyronine,Free,Serum 3.5 pg/mL (Normal) Range: 2.0-4.4 :37 TSH (26872) Comments: PATIENT NOT FASTINGPERFORMED BY: [address] [id number]; [address] TSH 1.210 {uIU/mL} (Normal) Range: 0.450-4.500 Urine Drug Screen positive amphetamines :30 (Office - Urine (Normal) Drug Screen 6 Panel) (53466) Glucose, Serum 72 mg/dL (Normal) Comments: PATIENT WAS FASTINGPERFORMED BY: [facility]6370 [facility] [id number] 1:30 Range: 65-99 :30 Lipid Panel With LDL/HDL Comments: PATIENT WAS FASTINGPERFORMED BY: [facility]6370 [facility] [id number] Information: [id number] Ratio LDL/HDL Ratio 1.7 {ratio_units} (Normal) Range: [...] 141 mg/dL (Normal) Range: 100-189 :39 LIPASE (64071) Comments: PATIENT NOT FASTINGPERFORMED BY: [place] Energy[place] [id number] Lipase, Serum 20 U/L (Normal) Range: 0-59 :39 AMYLASE (08929) Comments: PATIENT NOT FASTINGPERFORMED BY: [facility] [id number] Amylase, Serum 33 U/L (Normal) Range: 31-124 :39 HCG Qualitative, Serum (76678) Comments: PATIENT NOT FASTINGPERFORMED BY: [facility] [id number] hCG,Beta Subunit,Qual,Serum Negative m[iU]/mL (Normal) :39 CALCIFIDIOL (21194) VIT D 25 Comments: PATIENT NOT FASTINGPERFORMED BY: [facility] [id number] Vitamin D, 25-Hydroxy 35.9 ng/mL (Normal) Range: 30.0-100.0 Comments: Vitamin D deficiency has been defined by the [place] of[place]icine and an Endocrine Society practice guideline as alevel of serum 25-OH vitamin D less than 20 ng/mL (1,2).The Endocrine Society went on to further define vitamin Dinsufficiency as a level between 21 and 29 ng/mL (2).1. IOM ([place] of Medicine). 2010. Dietary reference intakes for calcium and D. [place]: The National Academies Press.2. Kelly MF, Rocky SANCHEZ, Padmini CHICAS, et al. Evaluation, treatment, and prevention of vitamin D deficiency: an Endocrine Society clinical practice guideline. JCEM. 2010; 96(7):1911-30. :39 Folate (37387) Comments: PATIENT NOT FASTINGPERFORMED BY: CB [facility] Cjatfr0481 Lowery RoadDublin [place] [id number] Folate (Folic Acid), Serum 12.6 ng/mL (Normal) Comments: A serum folate concentration of less than 3.1 ng/mL isconsidered to represent clinical deficiency. :39 VITAMIN B-12 (CYANOCOBALAMIN) Comments: PATIENT NOT FASTINGPERFORMED BY: CB [facility] Yecigb4055 Lowery RoadDublin [place] [id number] (32496) Vitamin B12 703 pg/mL (Normal) Range: 211-946 :39 TSH (37745) Comments: PATIENT NOT FASTINGPERFORMED BY: CB [facility] Wsyjme9732 Lowery RoadDublin [place] [id number] TSH 0.736 {uIU/mL} (Normal) Range: 0.450-4.500 :39 SED RATE ERYTHROCYTE (11562) Comments: PATIENT NOT FASTINGPERFORMED BY: CB [facility] [id number]Dublin [place] [id number] Sedimentation Rate-Westergren 2 mm/h (Normal) Range: 0-32 :39 METABOLIC PANEL, Comments: PATIENT NOT FASTINGPERFORMED BY: CB [facility] [id number]Dublin [place] [id number] Information: [id number] COMPREHENSIVE (72564) ALT (SGPT) 13 [iU]/L (Normal) Range: 0-32 [...] mg/dL (Normal) Range: 65-99 :39 CBC (AUTO) (24389) Comments: PATIENT NOT FASTINGPERFORMED BY: [id number] PhotoTLCFormerly [facility], [facility] [id number] Platelets 348 {x10E3/uL} (Normal) Range: 150-379 RDW 13.6 % (Normal) Range: 12.3-15.4 MCHC 34.4 g/dL (Normal) Range: 31.5-35.7 MCH 29.0 pg (Normal) Range: 26.6-33.0 MCV 84 fL (Normal) Range: 79-97 Hematocrit 41.3 % (Normal) Range: 34.0-46.6 Hemoglobin 14.2 g/dL (Normal) Range: 11.1-15.9 RBC 4.90 {x10E6/uL} (Normal) Range: 3.77-5.28 WBC 10.5 {x10E3/uL} (Normal) Range: 3.4-10.8 :39 ALEC (ANTINUCLEAR ANTIBODY) Comments: PATIENT NOT FASTINGPERFORMED BY: [email or web address] CorporationFrank[facility] [id number] (32103 ALEC Direct Negative (Normal) Plan of Care Name Dates Details Instructions Current smoker : Eprescribed prescriptions (G8553) Indication: [...] Indication: Abdominal pain Abdominal pain : 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 Indication: Abdominal pain Planned Observations Drug Screen (7drug + Alcohol) (52116)Indication: ADD (attention deficit disorder) On: 26-Lbq-968521:51 Request Glucose (80955)Indication: Encounter for pre-employment examination On: 93-Yhg-550182:35 Request Lipid Panel (34244)Indication: Encounter for pre-employment examination On: 26-Yek-648617:35 Request Urine Drug Screen (Office - Urine Drug Screen 9 Panel) (55100)Indication: ADD (attention deficit disorder) On: 58-Com-560617:31 Request GLUCOSE TOLERANCE TEST (GTT) (42133)Indication: Fatigue On: 19-Cgv-692728:23 Request Comments: 5 hr test CALCIUM SERUM (00145)Indication: Hypercalcemia On: 17-Jan-20149:23 Request Folate (13345)Indication: Fatigue On: 14-Jan-20149:26 Request Planned Encounters Medical; ADD EST VISIT - On: 30-May-2018 11:30 [facility], Teri Pyle Planned Procedures Ultrasound - ThyroidBy: Sayda CARROLL, On: 12-May-2015 Intent Mala Chamberlain Comments: to be done in 6 [address] - Neck (IV Contrast Needed)By: On: 10-Dec-2014 Intent Mala Alfredo CNP Comments: dysphagia, neck mass Ultrasound - ThyroidBy: Sayda CARROLL, On: 03-Dec-2014 Intent Mala Chamberlain Toradol Injection, 30 mg On: 21-Jan-2014 Intent (J1885)By: Mala Alfredo CNP Comments: lot [id number] gmIMas, 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 Patient has been compliant with instructions. Current medication u se: no side effects and considered effective by patient. Patient sleeps 4 hours per night. Nutrition: balanced diet and no supplemental vitamins & iron. The medical issues the patient is following u p for include other (ADD). weight :. Note for Follow up for chronic medical issues: nothing new -- just routine- in btw for ADDEncounter Diagnosis: BMI 32.0- 32.9,adult, Current smoker, Anxiety [facility] Office Visit On: 29-Nov-2017 [...]
--- OUTSIDE RECORDS SUMMARY | 2018-05-09 16:54 | XMS RPT_ITS | Continuity of Care Document ---
:1990 Author Organization [facility] Address [facility] [place] [address] Phone Care Team Providers Name Role Phone Cecilia Dhaliwal DO Unavailable Sha CAM, Teri Pyle Unavailable Nubia CAM, Corwin Unavailable Elida CAM, Yonathan Crenshaw Unavailable JACINTO Degroot Unavailable Unavailable Long CERTIFIED FAMILY MEDIATOR, Sirena Faustin Unavailable Unavailable Unavailable Unavailable Problems Name Dates [...] mg. Status: Active Anxiety (F41.9, 300.00) Comments: minchex really helpedhas been seeing counseling 2013 Status: Active BMI [...] Multiple thyroid nodules (E04.2, 241.1) Comments: RT 8z9a7hr and left 7m3j6nd with normal regional lymph nodes follow 6 [...] 783.1) Status: Active Medications Name Dates Details No Known Historical Medications Vyvanse 70 MG Oral Capsule 1 (one) Capsule in am for 0 days Quantity: 30 {Capsule} Refills: 0 Ordered:16-Dec-2017 Teri Dalton MD Start : 16-Dec-2017 Active Comments:DX: F98.8thirty FLUCONAZOLE, 150MG (Oral Tablet) 1 (one) Tablet qd for 0 days Quantity: 10 {Tablet} Refills: 0 Ordered:17-Apr-2015 YAYA DegrootAINE Start : 28-Feb-2015 End : 17-Apr-2015 Inactive [...] Start : 03-Apr-2013 End : 14-Jan-2014 Inactive STRATTERA, 80MG (Oral Capsule) 1 (one) Capsule [...] WITH Contrast Result: Comments: See Note; NOTES: [facility] Imaging Services [address] [place] [address] Soft Tissue Neck WITH Contrast MR#: [id number] Acct: [id number] Name: KELIN MACIEL Cathleen p #: [id number] : 1990 F 27 From: Dante Myers MD PCP: Cecilia Dhaliwal DO Status: REG CLI Study: Soft Tissue Neck WITH Contrast Date of Exam: 10/20/17 Exam# [id number] Ordering Dr: Ryna Marino MD STUDY: CT SOFT TISSUE NECK [...] soft tissues are unremarkable. 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 Phlegmonou s features without organized abscess. Electronically Signed: Dante Myers, at 10:43 EDT Tel , Service support , CC: Otoniel lagos MD; Cecilia Dhaliwal DO Manager Labor Delivery: Signed 05-Apr-2015 Emergency Department Summary Result: Comments: See Note; NOTES: [facility] Medical Records Department [address] [place] [address] Emergency Department Summary MR#: [id number] Acct: [id number] Name: KELIN FLORES Rep #: [id number] : 1990 24 From: Kimi Mario MD PCP: Cecilia Dhaliwal DO Status: [facility] DATE OF SERVICE: 04/05/2015 CHIEF COMPLAINT: Finger [...] an Alumafoam splint. She is referred to [facility] for outpatient followup and she was given a note for work restricti ons. DISPOSITION: Discharge. DIAGNOSIS: Left ring finger contusion. Kimi Mario MD T: NTS JOB: [id number] 04/05/15441 <Electronically signed by Kimi Mario MD> Date __ Kimi Mario MD Cosigner Signature (If Indicated): Date CC: Cecilia Dhaliwal DO Date Dictated : 04/05/15221 Date Transcribed: 04/05/15221 Manager Labor Delivery: Signed 05-Apr-2015 Discharge Instruction Result: Comments: See Note; NOTES: [facility] Medical Records Department [address] [place] [address] Discharge Instruction 04/05/15215 MR#: [id number] Acct: [id number] Name: KELIN FLORES Rep #: [id number] : 1990 24 From: Kimi Mario MD [...] problems, contact your doctor. Call [facility] ([phone]) or report to [facility] Emergency Room. Call 911 if necessary. 04/05/15220 <Electronically signed by Kimi Mario MD> Date Kimi Mario MD Cosign er Signature (If Indicated): Date CC: Cecilia Dhaliwal DO 05-Apr-2015 Hand Min 3 Views Result: Comments: See Note; NOTES: [facility] Imaging Services [address] [place] [address] Verdana 4d Hand Min 3 Views MR#: [id number] Acct: [id number] Name: Maine FLORES Rep #: [id number] : 1990 F 24 From: Jadon Bustamante PCP: Cecilia Dhaliwal DO Status: REG ER Study: Hand Min 3 Views Date of Exam: 04/05/15 Exam# [id number] Ordering Dr: Kimi Mario MD [facility] DY: X-RAY - LEFT HAND REASON FOR [...] DO at 2:17 EST , Service support [phone], RAD/Hand Min 3 Views IMPRESSION: Normal x-ray examinat ion of the hand. Electronically Signed: Jadon Bustamante DO at 2:17 EST , Service support [phone], CC: Kimi Mario MD; Cecilia Dhaliwal DO Manager Labor Delivery: Signed 06-Feb-2015 Operative Report Result: Comments: See Note; NOTES: [facility] Medical Records Department [address] [place] [address] Operative Report MR#: [id number] Acct: [id number] Name: DAVID FLORES Rep #: [id number] : 1990 From: Ryan Marino MD PCP: Cecilia Dhaliwal DO Status: [facility] DATE OF SERVICE: 01/21/2015 DATE OF PROCEDURE: [...] the postanesthesia care unit in stable condition. Ootniel Marino MD T: NTS JOB: [id number] 02/06/15 0905 <Electronically signed by Ryan Marino MD> Date ___ Ryan Marino MD Cosigner Signature (If Indicated): Date CC: Otoniel Marino MD; Cecilia Dhaliwal DO Date Dictated: 01/21/15 1225 Date Transcribed: 01/21/151224 Manager Labor Delivery: Signed 21-Jan-2015 Discharge Instruction Result: Comments: See Note; NOTES: [facility] Medical Records Department [address] [place] [address] Instructions for Home/Discharge Instructions 01/21/15 1141 MR#: [id number] Acct: [id number] Name: KELIN FLORES Rep #: [id number] : 1990 From: Ryan Marino MD PCP: Cecilia Dhaliwal DO Status: REG RIC Discharge Diet: Light diet - advance as [...] W/WO Contrast Result: Comments: See Note; NOTES: [facility] Imaging Services [address] [place] [address] Verdana 4d Orbit Face Neck W/WO Contrast MR#: [id number] Acct: [id number] [facility] e: KELIN FLORES Rep #: [id number] : 1990 F 24 From: Irina Belcher PCP: Cecilia Dhaliwal DO Status: REG CLI Study: Orbit Face Neck W/WO Contrast Date of Exam: 12/31/14 [id number] MD STUDY: MRI SOFT [...] CT. Normal bilateral parotid glands. Normal bilateral talent acquisition coordinator spaces. Normal bilateral parapharynge al spaces. Normal [...] at 10:21 EST Tel , Service support [phone], N.B. : The above information has been verbally conveyed by Irina Belcher MD to Dr. Delacruz, covering physician, on 12/31/2014 10:13:34 (ET). CC: Otoniel Marino MD; Cecilia Dhaliwal DO Manager Labor Delivery: Signed 10-Dec-2014 Soft Tissue Neck WITH Contrast Result: Comments: See Note; NOTES: [facility] Imaging Services [address] [place] [address] Verdana 4d Soft Tissue Neck WITH Contrast MR#: [id number] Acct: [id number] Na me: KELIN FLORES Rep #: [id number] : 1990 F 24 From: Basilio Agudelo MD PCP: Cecilia Dhaliwal DO Status: REG CLI Study: Soft Tissue Neck WITH Contrast Date of Exam: 12/10/14 Exam# [id number] [facility] Dr: Mala Alfredo STUDY: CT [...] Both parotid glands are normal. Normal bilateral talent acquisition coordinator spaces. Normal bilatera l parapharyngeal spaces. Normal [...] MD at 11:54 EDT , Service support [phone], CC: Mala Alfredo; Cecilia Dhaliwal DO Manager Labor Delivery: Signed 05-Dec-2014 Thyroid Result: Comments: See Note; NOTES: [facility] Imaging Services [address] [place] [address] Verdana 4d Thyroid MR#: [id number] Acct: [id number] Name: KELIN FLORES Rep #: [id number] : 1990 F 24 From: Joby Hurd MD PCP: Cecilia Dhaliwal DO Status: REG CLI Study: Thyroid Date of Exam: 12/05/14 Exam# [id number] Ordering Dr: Mala Alfredo STUDY: THYROID UL [...] at 9:37 EDT Tel , Service support [phone], CC: Mala Alfredo; Cecilia Dhaliwla DO Manager Labor Delivery: Signed 15-Jan-2014 Gallbladder Result: Comments: See Note; NOTES: [facility] Imaging Services [address] [place] [address] Ultrasound Report MR#: [id number] Acct: [id number] Name: KELIN FLORES Rep #: [id number] : 1990 F 23 From: Heriberto Falk MD PCP: Cecilia Dhaliwal DO Status: REG CLI Study: Gallbladder Date of Exam: 01/15/14 Exam# [id number] Ordering Dr: Cecilia Dhaliwal DO STUDY: ABDOMINA [...] MD at 11:12 EST , Service support [phone], CC: Cecilia Dhaliwal DO Manager Labor Delivery: Signed Social History Name Dates Details Alcohol Use: Occasional alcohol use. 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 Status: Active Living Situation: Lives with domestic partner. Status: Active No Drug Use Status: Active Pets/Animals Comments: none Status: Active Tobacco use: Current every day smoker. Comments: 3 or 4 qd Status: Active Smoking Status Name Dates Details Current every day smoker Vital Signs Date Test Result Details :44 Temperature 97.9 f Comments: Method: Temporal [...] kg/m2 Body Surface Area Calculated 1.86 m2 45-Zeo-167373:14 Pulse 82 /min Comments: Pattern: Regular Respiration [...] kg/m2 Body Surface Area Calculated 1.86 m2 69-Ewp-075875:48 Temperature 100.7 f Comments: Method: Oral Pulse [...] 1.86 m2 Results Date Description Value Details 80-Jgo-99760:00 ASP DONE IN LAB See Note Comments: [facility] [address] [place], [place], [address] (Normal) Comments: Patient: KELIN MACIEL : 1990 (27/F) Acct Num: [id number] Phys: Jamila CAM,Otoniel Unit Num: [id number] Loc: LAB Specimen: [id number] Received: 10/13/17 - [...] for cytologystudy. / AM:rehan 10/13/17 TC:5 CPT: 67405, 62549, 39023 CYTOLOGY STUDY Slides are reviewed. DIAGNOSIS CYTOLOGY Fine needle aspiration, midline neck mass (smears and cell block): Scant skeletal muscle fragments are present. No evidence of maligna ncy. AM:rehan 10/14/17 HEADER OPERATION: FNA midline neck mass PRE- OP DIAGNOSIS: Midline neck mass TISSUE SUBMITTED: FNA midline neck mass, smear and fluid for cytology, cell block Signed Kilo Ballesteros 10/14/17 <signature on file> :3 Cytomegalovirus (CMV) Ab, 8.40 U/mL Comments: PATIENT NOT FASTINGPERFORMED BY: [facility] Cimaka6597 [facility] [id number] 4 IgG (Abnormal) Range: 0.00-0.59 Comments: Negative <0.60 Equivocal 0.60 - 0.69 Positive >0.69 :3 Cytomegalovirus (CMV) Ab, <30.0 AU/mL Comments: PATIENT NOT FASTINGPERFORMED BY: [facility] Dbusxa9183 [facility] [id number] 4 IgM (Normal) Range: 0.0-29.9 Comments: Negative <30.0 Equivocal 30.0 - 34.9 Positive >34.9 A positive result is generally indicative of acute infection, reactivation or persistent IgM production. :34 EBV Acute Infection Antibodies Comments: PATIENT NOT FASTINGPERFORMED BY: [facility] Actprg1460 [facility] [id number] Interpretation: SPRCS (Normal) Comments: EBV Interpretation Chart . Interpretation EBV-IgM EA(D)-IgG VCA-IgG EBNA-IgG . EBV Seronegative - - - - Early Phase + - - - Acute Primary + +or- + - Infection Convalescence/Past - +or- + + Infection Reactivated +or- + + + Infection + Antibody Present - Antibody Absent :34 Specimen Status Report Comments: PATIENT NOT FASTINGPERFORMED BY: [employer] Qtetza3365 [facility] [id number] 40-Cpi-144630:3 Written Authorization WAR (Normal) Comments: PATIENT NOT FASTINGPERFORMED BY: [facility] Lxeiay6325 [facility] [id number] 4 Comments: Written Authorization Received.Authorization received from BEATRIZ PAEZ LPN [id number] by Letha Aguilar :34 Anti-TPO Antibody (11615) Comments: PATIENT NOT FASTINGPERFORMED BY: [facility] Cdloyh3782 [facility] [id number] Liver-Kidney Microsomal Ab <1.0 {Units} (Normal) Range: 0.0-20.0 Comments: Negative 0.0 - 20.0 Equivocal 20.1 - 24.9 Positive >24.9 . LKM type 1 antibodies are detected in patients with autoimmune hepatitis type 2 and in up to 8% of patients with chronic HCV infection. :34 TSH (84860) Comments: PATIENT NOT FASTINGPERFORMED BY: [facility] Axelrd[address] [place] GameD[place] [id number] TSH 0.702 {uIU/mL} (Normal) Range: 0.450-4.500 :34 T4, FREE (THYROXINE) (39795) Comments: PATIENT NOT FASTINGPERFORMED BY: [employer] Mvlnyg9097 [address] [employer] [place] Limitedbl[place] [id number] T4,Free(Direct) 1.36 ng/dL (Normal) Range: 0.82-1.77 :34 T3, FREE (TRIDOTHYRONINE) (95144) Comments: PATIENT NOT FASTINGPERFORMED BY: [employer] Yxdair7646 [address] [facility] [place] [id number] Triiodothyronine,Free,Serum 2.9 pg/mL (Normal) Range: 2.0-4.4 :23 HgA1C , Office (66132) HgA1C , Office 4.9 % (Normal) Range: 4.6 - 7.1 :34 CALCIFIDIOL (65945) VIT D 25 Comments: PATIENT NOT FASTINGPERFORMED BY: [facility] Onvquo5974 [address] [facility] [place] [id number] Vitamin D, 25-Hydroxy 16.0 ng/mL (Abnormal) Range: 30.0-100.0 Comments: Vitamin D deficiency has been defined by the [place] [employer] and an Endocrine Society practice guideline as alevel of serum 25-OH vitamin D less than 20 ng/mL (1,2).The Endocrine Society went on to further define vitamin Dinsufficiency as a level between 21 and 29 ng/mL (2).1. IOM ([place] [employer]). 2010. Dietary reference intakes for calcium and D. [place]: The National Academies Press.2. Kelly MF, Rocky NC, Padmini CHICAS, et al. Evaluation, treatment, and prevention of vitamin D deficiency: an Endocrine Society clinical practice guideline. JCEM. 2010; 96(7):1911-30. :34 Folate (09731) Comments: PATIENT NOT FASTINGPERFORMED BY: CB [facility] Dzwagh4394 Lowery RoadDublin [place] [id number] Folate (Folic Acid), Serum 14.3 ng/mL (Normal) Comments: A serum folate concentration of less than 3.1 ng/mL isconsidered to represent clinical deficiency. :34 VITAMIN B-12 (CYANOCOBALAMIN) Comments: PATIENT NOT FASTINGPERFORMED BY: CB [facility] Opyihk8769 Lowery RoadDublin [place] [id number] (02754) Vitamin B12 734 pg/mL (Normal) Range: 232-1245 :34 SED RATE ERYTHROCYTE (67863) Comments: PATIENT NOT FASTINGPERFORMED BY: CB [facility] Pkujjl3471 [address]y RoadDublin [place] [id number] Sedimentation Rate-Westergren 2 mm/h (Normal) Range: 0-32 :34 RHEUMATOID FACTOR-QUANT (38310) Comments: PATIENT NOT FASTINGPERFORMED BY: CB [facility] Ukswqx7404 [address]y RoadDublin [place] [id number] RA Latex Turbid. <10.0 {IU/mL} (Normal) Range: 0.0-13.9 :34 METABOLIC PANEL, COMPREHENSIVE Comments: PATIENT NOT FASTINGPERFORMED BY: CB [facility] Tnqazi9025 Lowery RoadDublin [place] [id number] (99633) ALT (SGPT) 11 [iU]/L (Normal) Range: 0-32 [...] Glucose, Serum 92 mg/dL (Normal) Range: 65-99 45-Kxc-429283:34 C-REACTIVE PROTEIN (30939) Comments: PATIENT NOT FASTINGPERFORMED BY: Digital TrowelMountainside HospitalDyjjnn1194 [facility] [id number] C-Reactive Protein, Quant <0.3 mg/L (Normal) Range: 0.0-4.9 82-Bqs-194122:34 CBC (AUTO) (73650) Comments: PATIENT NOT FASTINGPERFORMED BY: SnehtaCoMountainside HospitalShdhko0649 [facility] [id number] Platelets 308 {x10E3/uL} (Normal) Range: 150-379 RDW 13.8 % (Normal) Range: 12.3-15.4 MCHC 34.8 g/dL (Normal) Range: 31.5-35.7 MCH 29.0 pg (Normal) Range: 26.6-33.0 MCV 84 fL (Normal) Range: 79-97 Hematocrit 41.4 % (Normal) Range: 34.0-46.6 Hemoglobin 14.4 g/dL (Normal) Range: 11.1-15.9 RBC 4.96 {x10E6/uL} (Normal) Range: 3.77-5.28 WBC 8.6 {x10E3/uL} (Normal) Range: 3.4-10.8 89-Wtf-401321:34 ALEC (ANTINUCLEAR ANTIBODY) Comments: PATIENT NOT FASTINGPERFORMED BY: [facility] Fzdbav[address]60 [address] [facility] [id number] (04737) ALEC Direct Negative (Normal) 34-Ecy-270546:51 NuSwab Vaginitis Plus Comments: PATIENT NOT FASTINGPERFORMED BY: [facility] Mabzjykldx6791 [facility] [id number] Information: [id number] (trich/BV/GC/tavo W/O Herpes) (56508) Neisseria gonorrhoeae, Negative (Normal) CRUZ Chlamydia trachomatis, Negative (Normal) CRUZ Trich vag by CRUZ Negative (Normal) Shivani glabrata, CRUZ Negative (Normal) Comments: This test was developed and its performance characteristics determinedby [facility]. It has not been cleared or approved [...] was developed and its performance characteristics determinedby [employer]. It has not been cleared or appro chapis by the Food and DrugAdministration. The FDA has determined that such clearance orapproval is not necessary. BVAB 2 Low - 0 {Score} (Normal) Atopobium vaginae Low - 0 {Score} (Normal) 8-Boh-783803: Mass (define area) See Note (Normal) Comments: [facility] [address] [place], [address] 24 Comments: Patient: KELIN FLORES : 1990 (24/F) Acct Num: [id number] Phys: Jamila CAM,[place] Unit Num: [id number] Loc: [facility] Specimen: [id number] Received: 01/21/15 - 1028 Spec Ty pe: [...] one block. / AM: 01/21/15 TC:2 CPT: 55386 x2, 41710 x2, 23954 x2 HEADER OPERATION: Incisional biopsy neck mass [...] 01/22/15 <signature on file> 21-Jan-20158:00 ,Urine Comments: [facility] [address] [place], [address] HCGUQUAL Negative {Negative} (Normal) Comments: Very dilute urine specimens, as indicated by a low specificgravity, may not contain direct sales representative levels of hCG.If is still suspected, a first morning urinespecimen should be collected 48 hours later and tested. 86-Vqr-11074:37 CBC, Platelets & Auto Diff Comments: PATIENT NOT FASTINGPERFORMED BY: [facility] Ullvip0994 [facility] [id number] Information: [id number],[id number] (76195) Immature Grans (Abs) 0.0 {x10E3/uL} (Normal) Range: [...] Panel, Comprehensive Comments: PATIENT NOT FASTINGPERFORMED BY: Digital TrowelMountainside HospitalAogagv6728 [facility] [id number] (42802) ALT (SGPT) 13 [iU]/L (Normal) Range: 0-32 [...] mg/dL (Normal) Range: 65-99 :37 Anti-TPO Antibody (18298) Comments: PATIENT NOT FASTINGPERFORMED BY: [facility]Co[facility]ainside HospitalOtuirl3371 [facility] [id number] Thyroid Peroxidase (TPO) Ab 7 {IU/mL} (Normal) Range: 0-34 :37 T4, FREE (THYROXINE) (03567) Comments: PATIENT NOT FASTINGPERFORMED BY: RONAK [facility]6370 [facility] [id number] T4,Free(Direct) 1.36 ng/dL (Normal) Range: 0.82-1.77 :37 T3, FREE (TRIDOTHYRONINE) (20816) Comments: PATIENT NOT FASTINGPERFORMED BY: [facility]6370 [facility] [id number] Triiodothyronine,Free,Serum 3.5 pg/mL (Normal) Range: 2.0-4.4 :37 TSH (85466) Comments: PATIENT NOT FASTINGPERFORMED BY: [facility]6370 [facility] [id number]; apt. 12-10-14 TSH 1.210 {uIU/mL} (Normal) Range: 0.450-4.500 Urine Drug Screen positive amphetamines :30 (Office - Urine (Normal) Drug Screen 6 Panel) (55946) Glucose, Serum 72 mg/dL (Normal) Comments: PATIENT WAS FASTINGPERFORMED BY: [facility]6370 [facility] [id number] 1:30 Range: 65-99 :30 Lipid Panel With LDL/HDL Comments: PATIENT WAS FASTINGPERFORMED BY: [facility]6370 [facility] [id number] Information: [id number],[id number] Ratio LDL/HDL Ratio 1.7 {ratio_units} (Normal) Range: [...] 141 mg/dL (Normal) Range: 100-189 :39 LIPASE (56105) Comments: PATIENT NOT FASTINGPERFORMED BY: [facility] Onfzpl0082 [address] RoadDublin [place] [id number] Lipase, Serum 20 U/L (Normal) Range: 0-59 :39 AMYLASE (92465) Comments: PATIENT NOT FASTINGPERFORMED BY: [facility] Tovtyc6665 [address] RoadDublin [place] [id number] Amylase, Serum 33 U/L (Normal) Range: 31-124 :39 HCG Qualitative, Serum (99128) Comments: PATIENT NOT FASTINGPERFORMED BY: [facility] Suoztf4021 [address] [facility] [place] [id number] hCG,Beta Subunit,Qual,Serum Negative m[iU]/mL (Normal) :39 CALCIFIDIOL (14401) VIT D 25 Comments: PATIENT NOT FASTINGPERFORMED BY: [facility] Sipczx7915 [address] [facility] [place] [id number] Vitamin D, 25-Hydroxy 35.9 ng/mL (Normal) Range: 30.0-100.0 Comments: Vitamin D deficiency has been defined by the [place] of[employer] and an Endocrine Society practice guideline as alevel of serum 25-OH vitamin D less than 20 ng/mL (1,2).The Endocrine Society went on to further define vitamin Dinsufficiency as a level between 21 and 29 ng/mL (2).1. IOM ([place] [employer]). 2010. Dietary reference intakes for calcium and D. [place]: The National Academies Press.2. Kelly MF, Rocky NC, Shayan-Ventura CHICAS, et al. Evaluation, treatment, and prevention of vitamin D deficiency: an Endocrine Society clinical practice guideline. JCEM. 2010; 96(7):1911-30. :39 Folate (18278) Comments: PATIENT NOT FASTINGPERFORMED BY: [facility] Sodhel[address] [facility] CenterD[facility] [place] [id number] Folate (Folic Acid), Serum 12.6 ng/mL (Normal) Comments: A serum folate concentration of less than 3.1 ng/mL isconsidered to represent clinical deficiency. :39 VITAMIN B-12 (CYANOCOBALAMIN) Comments: PATIENT NOT FASTINGPERFORMED BY: [employer] Rawxuk7898 [facility] [id number] (19805) Vitamin B12 703 pg/mL (Normal) Range: 211-946 :39 TSH (02154) Comments: PATIENT NOT FASTINGPERFORMED BY: Zeppelin [facility] Msrucg6035 [facility] [id number] TSH 0.736 {uIU/mL} (Normal) Range: 0.450-4.500 :39 SED RATE ERYTHROCYTE (47533) Comments: PATIENT NOT FASTINGPERFORMED BY: [employer] Nvmemf3345 [facility] [id number] Sedimentation Rate-Westergren 2 mm/h (Normal) Range: 0-32 :39 METABOLIC PANEL, Comments: PATIENT NOT FASTINGPERFORMED BY: [facility] Lzrivg5079 [facility] [id number] Information: [id number] COMPREHENSIVE (36244) ALT (SGPT) 13 [iU]/L (Normal) Range: 0-32 [...] mg/dL (Normal) Range: 65-99 :39 CBC (AUTO) (21001) Comments: PATIENT NOT FASTINGPERFORMED BY: [employer] Crrvtr0510 [facility] [id number] Platelets 348 {x10E3/uL} (Normal) Range: 150-379 RDW 13.6 % (Normal) Range: 12.3-15.4 MCHC 34.4 g/dL (Normal) Range: 31.5-35.7 MCH 29.0 pg (Normal) Range: 26.6-33.0 MCV 84 fL (Normal) Range: 79-97 Hematocrit 41.3 % (Normal) Range: 34.0-46.6 Hemoglobin 14.2 g/dL (Normal) Range: 11.1-15.9 RBC 4.90 {x10E6/uL} (Normal) Range: 3.77-5.28 WBC 10.5 {x10E3/uL} (Normal) Range: 3.4-10.8 :39 ALEC (ANTINUCLEAR ANTIBODY) Comments: PATIENT NOT FASTINGPERFORMED BY: [employer] Loerqf4962 [facility] [id number] (41387) ALEC Direct Negative (Normal) Plan of Care Name Dates Details Instructions Fatigue : *fatigue education Indication: Fatigue Current [...] Indication: Abdominal pain Abdominal pain : Reviewed Director Of Estate Letter Indication: Abdominal pain Planned Observations Drug Screen (7drug + Alcohol) (13476)Indication: ADD (attention deficit disorder) On: 54-Odo-494145:51 Request Glucose (62945)Indication: Encounter for pre-employment examination On: 16-Ajw-984611:35 Request Lipid Panel (37072)Indication: Encounter for pre-employment examination On: 43-Gsa-800598:35 Request Urine Drug Screen (Office - Urine Drug Screen 9 Panel) (81769)Indication: ADD (attention deficit disorder) On: 63-Ghs-469872:31 Request GLUCOSE TOLERANCE TEST (GTT) (76070)Indication: Fatigue On: 05-Fan-269500:23 Request Comments: 5 hr test CALCIUM SERUM (36794)Indication: Hypercalcemia On: 17-Jan-20149:23 Request Folate (58561)Indication: Fatigue On: 14-Jan-20149:26 Request Planned Encounters Medical; 3 Month FU - On: 02-Mar-2018 9:00 [facility] Cecilia Dhaliwal DO, DO, [facility]; ADD EST VISIT - On: 30-May-2018 [...] Intent (J1885)By: Mala Alfredo CNP Comments: lot 61274uo0.1.1630mgleft gmIMas, CERTIFIED FAMILY MEDIATOR Toradol Injection, 30 mg On: 17-Jan-2014 Intent (J1885)By: Cecilia Dhaliwal DO Comments: Lot:[id number]:10/16/2015Dose:30mgRoute:30mg Site:[facility] System ([facility]) By:EVIE signed Cecilia Dhaliwal DO Ultrasound - GallbladderBy: Mdahuri On: 14-Jan-2014 Intent Cecilia PINZON DO, Kathleen Planned Medications INJECTION, KETOROLAC TROMETHAMINE, PER 15 MG Ordered: 17-Jan-2014 Pending Cecilia Dhaliwal DO, DO, Cecilia INJECTION, KETOROLAC TROMETHAMINE, PER 15 MG Ordered: 21-Jan-2014 Pending Mala Alfredo CNP Instructions Name Dates Details ADD (attention deficit disorder) : How to [...] Indication: Chronic constipation Encounters Office Visit On: 29-Nov-2017 10:44 Encounter Reason: [...]
--- OUTSIDE RECORDS SUMMARY | 2018-05-09 16:55 | XMS RPT_ITS | Continuity of Care Document ---
:1990 Author Organization [facility] Address [facility] [place] [address] Phone Care Team Providers Name Role Phone Cecilia Dhaliwal DO Unavailable Sha CAM, Teri Pyle Unavailable Nubia CAM, Corwin Unavailable Elida CAM, Yonathan Crenshaw Unavailable JACINTO Degroot Unavailable Unavailable Long [employer] CRAFTSMAN, Sirena Faustin Unavailable Unavailable Unavailable Unavailable Problems [...] Multiple thyroid nodules (E04.2, 241.1) Comments: RT 0e7r0bw and left 8m5l2cs with normal regional lymph nodes follow 6 [...] WITH Contrast Result: Comments: See Note; NOTES: [facility] Imaging Services [address] [place] [address] Soft Tissue Neck WITH Contrast MR#: [id number] Acct: [id number] Name: KELIN MACIEL Cathleen p #: [id number] : 1990 F 27 From: Dante Myers MD PCP: Cecilia Dhaliwal DO Status: REG CLI Study: Soft Tissue Neck WITH Contrast Date of Exam: 10/20/17 Exam# [id number] Ordering Dr: Ryan Marino MD STUDY: CT [...] soft tissues are unremarkable. 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 Phlegmonou s features without organized abscess. Electronically Signed: Dante Myers, at 10:43 EDT Tel , Service support , CC: Otoniel lagos MD; Cecilia Dhaliwal DO Diagnostic Technologist: Signed 05-Apr-2015 Emergency Department Summary Result: Comments: See Note; NOTES: [facility] Medical Records Department [address] [place] [address] Emergency Department Summary MR#: [id number] Acct: [id number] Name: KELIN FLORES Rep #: [id number] : 1990 24 From: Kimi Mario MD PCP: Cecilia Dhaliwal DO Status: [facility] DATE OF SERVICE: 04/05/2015 CHIEF COMPLAINT: Finger [...] an Alumafoam splint. She is referred to [facility] for outpatient followup and she was given a note for work restricti ons. DISPOSITION: Discharge. DIAGNOSIS: Left ring finger contusion. Kimi Mario MD T: NTS JOB: [id number] 04/05/15441 <Electronically signed by Kimi Mario MD> Date __ Kimi Mario MD Cosigner Signature (If Indicated): Date CC: Cecilia Dhaliwal DO Date Dictated : 04/05/15221 Date Transcribed: 04/05/15221 Diagnostic Technologist: Signed 05-Apr-2015 Discharge Instruction Result: Comments: See Note; NOTES: [facility] Medical Records Department [address] [place] [address] Discharge Instruction 04/05/15215 MR#: [id number] Acct: [id number] Name: KELIN FLORES Rep #: [id number] : 1990 24 From: Kimi Mario MD [...] problems, contact your doctor. Call [facility] ([phone]) or report to the [facility] Emergency Room. Call 911 if necessary. 04/05/15220 <Electronically signed by Kimi Mario MD> Date Kimi Mario MD Cosign er Signature (If Indicated): Date CC: Cecilia Dhaliwal DO 05-Apr-2015 Hand Min 3 Views Result: Comments: See Note; NOTES: [facility] Imaging Services [address] [place] [address] Verdana 4d Hand Min 3 Views MR#: [id number] Acct: [id number] Name: Maine FLORES Rep #: [id number] : 1990 F 24 From: Jadon Bustamante PCP: Cecilia Dhaliwal DO Status: REG ER Study: Hand Min 3 Views Date of Exam: 04/05/15 Exam# [id number] Ordering Dr: Kimi Mario MD [facility] DY: X-RAY - LEFT HAND REASON FOR [...] DO at 2:17 EST , Service support [phone], RAD/Hand Min 3 Views IMPRESSION: Normal x-ray examinat ion of the hand. Electronically Signed: Jadon Bustamante DO at 2:17 EST , Service support [phone], CC: Kimi Mario MD; Cecilia Dhaliwal DO Diagnostic Technologist: Signed 06-Feb-2015 Operative Report Result: Comments: See Note; NOTES: [facility] Medical Records Department [address] [place] [address] Operative Report MR#: [id number] Acct: [id number] Name: DAVID FLORES Rep #: [id number] : 1990 From: Ryan Marino MD PCP: Cecilia Dhaliwal DO Status: [facility] DATE OF SERVICE: 01/21/2015 DATE OF PROCEDURE: [...] condition. Otoniel Marino MD T: NTS JOB: [id number] 02/06/15 0905 <Electronically signed by Ryan Marino MD> Date ___ Ryan Marino MD Cosigner Signature (If Indicated): Date CC: Otoniel Marino MD; Cecilia Dhaliwal DO Date Dictated: 01/21/15 1225 Date Transcribed: 01/21/151224 Diagnostic Technologist: Signed 21-Jan-2015 Discharge Instruction Result: Comments: See Note; NOTES: [facility] Medical Records Department [address] [place] [address] Instructions for Home/Discharge Instructions 01/21/15 1141 MR#: [id number] Acct: [id number] Name: KELIN FLORES Rep #: [id number] : 1990 From: Ryan Marino MD PCP: Cecilia Dhaliwal DO Status: REG MTC Discharge Diet: Light diet - advance as [...] W/WO Contrast Result: Comments: See Note; NOTES: [facility] Imaging Services [address] [place] [address] Verdana 4d Orbit Face Neck W/WO Contrast MR#: [id number] Acct: [id number] [facility] e: KELIN FLORES Rep #: [id number] : 1990 F 24 From: Irina Belcher PCP: Cecilia Dhaliwal DO Status: REG CLI Study: Orbit Face Neck W/WO Contrast Date of Exam: 12/31/14 Exam# [id number] [facility]ino MD STUDY: MRI SOFT [...] CT. Normal bilateral parotid glands. Normal bilateral target network analyst spaces. Normal bilateral parapharynge al spaces. Normal [...] at 10:21 EST Tel , Service support [phone], N.B. : The above information has been verbally conveyed by Irina Belcher MD to Dr. Delacruz, covering physician, on 12/31/2014 10:13:34 (ET). CC: Otoniel Marino MD; Cecilia Dhaliwal DO Diagnostic Technologist: Signed 10-Dec-2014 Soft Tissue Neck WITH Contrast Result: Comments: See Note; NOTES: [facility] Imaging Services [address] [place] [address] Verdana 4d Soft Tissue Neck WITH Contrast MR#: [id number] Acct: [id number] Na me: KELIN FLORES Rep #: [id number] : 1990 F 24 From: Basilio Agudelo MD PCP: Cecilia Dhaliwal DO Status: REG CLI Study: Soft Tissue Neck WITH Contrast Date of Exam: 12/10/14 Exam# [id number] [facility] Dr: Mala Alfredo STUDY: CT SOFT [...] Both parotid glands are normal. Normal bilateral target network analyst spaces. Normal bilatera l parapharyngeal spaces. Normal [...] MD at 11:54 EDT , Service support [phone], CC: Mala Alfredo; Cecilia Dhaliwal DO Diagnostic Technologist: Signed 05-Dec-2014 Thyroid Result: Comments: See Note; NOTES: [facility] Imaging Services [address] [place] [address] Verdana 4d Thyroid MR#: [id number] Acct: [id number] Name: KELIN FLORES Rep #: [id number] : 1990 F 24 From: Joby Hurd MD PCP: Cecilia Dhaliwal DO Status: REG CLI Study: Thyroid Date of Exam: 12/05/14 Exam# [id number] Ordering Dr: Mala Alfredo STUDY: THYROID UL [...] at 9:37 EDT Tel , Service support [phone], CC: Mala Alfredo; Cecilia Dhaliwal DO Diagnostic Technologist: Signed 15-Jan-2014 Gallbladder Result: Comments: See Note; NOTES: [facility] Imaging Services [address] [place] [address] Ultrasound Report MR#: [id number] Acct: [id number] Name: KELIN FLORES Rep #: [id number] : 1990 F 23 From: Heriberto Falk MD PCP: Cecilia Dhaliwal DO Status: REG CLI Study: Gallbladder Date of Exam: 01/15/14 Exam# [id number] Ordering Dr: Cecilia Dhaliwal DO STUDY: ABDOMINA [...] MD at 11:12 EST , Service support [phone], CC: Cecilia Dhaliwal DO Diagnostic Technologist: Signed Social History Name Dates Details Alcohol Use: Occasional alcohol use. 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 [...] kg/m2 Body Surface Area Calculated 1.86 m2 00-Ojg-076022:14 Pulse 82 /min Comments: Pattern: Regular Respiration [...] kg/m2 Body Surface Area Calculated 1.86 m2 38-Bjb-283497:48 Temperature 100.7 f Comments: Method: Oral Pulse [...] 1.86 m2 Results Date Description Value Details 10-Ngy-79465:00 ASP DONE IN LAB See Note Comments: [address] [place], [place], [address] (Normal) Comments: Patient: KELIN MACIEL : 1990 (27/F) Acct Num: [id number] Phys: Jamila CAM,Otoniel Unit Num: [id number] Loc: LAB Specimen: [id number] Received: 10/13/17 - [...] for cytologystudy. / AM:rehan 10/13/17 TC:5 CPT: 41278, 93969, 34394 CYTOLOGY STUDY Slides are reviewed. DIAGNOSIS CYTOLOGY [...] 8.40 U/mL Comments: PATIENT NOT FASTINGPERFORMED BY: [facility] Tcwfxx4631 [facility] [id number] 4 IgG (Abnormal) Range: 0.00-0.59 Comments: Negative <0.60 Equivocal 0.60 - 0.69 Positive >0.69 :3 Cytomegalovirus (CMV) Ab, <30.0 AU/mL Comments: PATIENT NOT FASTINGPERFORMED BY: [facility] Kcphhc8072 [facility] [id number] 4 IgM (Normal) Range: 0.0-29.9 Comments: Negative <30.0 Equivocal 30.0 - 34.9 Positive >34.9 A positive result is generally indicative of acute infection, reactivation or persistent IgM production. :34 EBV Acute Infection Antibodies Comments: PATIENT NOT FASTINGPERFORMED BY: [facility] Kbgmsf7905 [facility] [id number] Interpretation: SPRCS (Normal) Comments: EBV Interpretation Chart . Interpretation EBV-IgM EA(D)-IgG VCA-IgG EBNA-IgG . EBV Seronegative - - - - Early Phase + - - - Acute Primary + +or- + - Infection Convalescence/Past - +or- + + Infection Reactivated +or- + + + Infection + Antibody Present - Antibody Absent :34 Specimen Status Report Comments: PATIENT NOT FASTINGPERFORMED BY: [employer] [place] Rylfda4575 [facility] [id number] 95-Dyt-677524:3 Written Authorization WAR (Normal) Comments: PATIENT NOT FASTINGPERFORMED BY: [facility] Xqmtya9089 [facility] [id number] 4 Comments: Written Authorization Received.Authorization received from BEATRIZ PAEZ LPN 10-25-0205Utzuzp by Letha Aguilar :34 Anti-TPO Antibody (16350) Comments: PATIENT NOT FASTINGPERFORMED BY: [facility] Tipwoo1919 [facility] [id number] Liver-Kidney Microsomal Ab <1.0 {Units} (Normal) Range: 0.0-20.0 Comments: Negative 0.0 - 20.0 Equivocal 20.1 - 24.9 Positive >24.9 . LKM type 1 antibodies are detected in patients with autoimmune hepatitis type 2 and in up to 8% of patients with chronic HCV infection. :34 TSH (68561) Comments: PATIENT NOT FASTINGPERFORMED BY: [facility] Dztxcy[address] [place] Mind[place] [id number] TSH 0.702 {uIU/mL} (Normal) Range: 0.450-4.500 :34 T4, FREE (THYROXINE) (19318) Comments: PATIENT NOT FASTINGPERFORMED BY: [employer] [place] Tiawtl9255 [address] Teleservicesbl[place] [id number] T4,Free(Direct) 1.36 ng/dL (Normal) Range: 0.82-1.77 :34 T3, FREE (TRIDOTHYRONINE) (74142) Comments: PATIENT NOT FASTINGPERFORMED BY: [employer] Ngskvw1656 [address] [facility] [place] [id number] Triiodothyronine,Free,Serum 2.9 pg/mL (Normal) Range: 2.0-4.4 :23 HgA1C , Office (63757) HgA1C , Office 4.9 % (Normal) Range: 4.6 - 7.1 :34 CALCIFIDIOL (03423) VIT D 25 Comments: PATIENT NOT FASTINGPERFORMED BY: [facility] Urzhbl3939 [address] [facility] [place] [id number] Vitamin D, 25-Hydroxy 16.0 ng/mL (Abnormal) Range: 30.0-100.0 Comments: Vitamin D deficiency has been defined by the [place] of[place] and an Endocrine Society practice guideline as alevel of serum 25-OH vitamin D less than 20 ng/mL (1,2).The Endocrine Society went on to further define vitamin Dinsufficiency as a level between 21 and 29 ng/mL (2).1. IOM ([place] of [place]). 2010. Dietary reference intakes for calcium and D. [place]: The National Academies Press.2. Kelly MF, [place], Padmini CHICAS, et al. Evaluation, treatment, and prevention of vitamin D deficiency: an Endocrine Society clinical practice guideline. JCEM. 2010; 96(7):1911-30. :34 Folate (01674) Comments: PATIENT NOT FASTINGPERFORMED BY: CB [facility] Yydstz3709 Lowery RoadDublin [place] [id number] Folate (Folic Acid), Serum 14.3 ng/mL (Normal) Comments: A serum folate concentration of less than 3.1 ng/mL isconsidered to represent clinical deficiency. :34 VITAMIN B-12 (CYANOCOBALAMIN) Comments: PATIENT NOT FASTINGPERFORMED BY: CB [facility] Kpusfi0847 Lowery RoadDublin [place] [id number] (14995) Vitamin B12 734 pg/mL (Normal) Range: 232-1245 :34 SED RATE ERYTHROCYTE (04182) Comments: PATIENT NOT FASTINGPERFORMED BY: CB [facility] Nkexti9070 [address]y RoadDublin [place] [id number] Sedimentation Rate-Westergren 2 mm/h (Normal) Range: 0-32 :34 RHEUMATOID FACTOR-QUANT (77981) Comments: PATIENT NOT FASTINGPERFORMED BY: CB [facility] Kyueek3935 [address]y RoadDublin [place] [id number] RA Latex Turbid. <10.0 {IU/mL} (Normal) Range: 0.0-13.9 :34 METABOLIC PANEL, COMPREHENSIVE Comments: PATIENT NOT FASTINGPERFORMED BY: CB [facility] Muiezd1000 Lowery RoadDublin [place] [id number] (37745) ALT (SGPT) 11 [iU]/L (Normal) Range: 0-32 [...] Glucose, Serum 92 mg/dL (Normal) Range: 65-99 62-Xyx-900139:34 C-REACTIVE PROTEIN (25834) Comments: PATIENT NOT FASTINGPERFORMED BY: [employer] [facility] [facility] RiverPfwvkz2997 [facility] [id number] C-Reactive Protein, Quant <0.3 mg/L (Normal) Range: 0.0-4.9 43-Hvs-676291:34 CBC (AUTO) (15688) Comments: PATIENT NOT FASTINGPERFORMED BY: [facility]alCo[facility] Toms RiverWrapnt9026 [facility] [id number] Platelets 308 {x10E3/uL} (Normal) Range: 150-379 RDW 13.8 % (Normal) Range: 12.3-15.4 MCHC 34.8 g/dL (Normal) Range: 31.5-35.7 MCH 29.0 pg (Normal) Range: 26.6-33.0 MCV 84 fL (Normal) Range: 79-97 Hematocrit 41.4 % (Normal) Range: 34.0-46.6 Hemoglobin 14.4 g/dL (Normal) Range: 11.1-15.9 RBC 4.96 {x10E6/uL} (Normal) Range: 3.77-5.28 WBC 8.6 {x10E3/uL} (Normal) Range: 3.4-10.8 98-Qez-201456:34 ALEC (ANTINUCLEAR ANTIBODY) Comments: PATIENT NOT FASTINGPERFORMED BY: [facility] Kvamda[address] [facility] [id number] (65593) ALEC Direct Negative (Normal) 63-Htp-656424:51 NuSwab Vaginitis Plus Comments: PATIENT NOT FASTINGPERFORMED BY: [facility] Hbstwzbodf0697 [facility] [id number] Information: [id number] (trich/BV/GC/tavo W/O Herpes) (51621) Neisseria gonorrhoeae, Negative (Normal) CRUZ Chlamydia trachomatis, [...] was developed and its performance characteristics determinedby [employer]. It has not been cleared or appro chapis by the Food and DrugAdministration. The FDA has determined that such clearance orapproval is not necessary. BVAB 2 Low - 0 {Score} (Normal) Atopobium vaginae Low - 0 {Score} (Normal) 4-Ano-021928: Mass (define area) See Note (Normal) Comments: [address] [place], [address] 24 Comments: Patient: KELIN FLORES : 1990 (24/F) Acct Num: [id number] Phys: Jamila CAM,[place] Unit Num: [id number] Loc: [facility] Specimen: [id number] Received: 01/21/15 - 1028 Spec Ty pe: [...] one block. / AM: 01/21/15 TC:2 CPT: 12895 x2, 70541 x2, 53101 x2 HEADER OPERATION: Incisional biopsy neck mass [...] 01/22/15 <signature on file> 21-Jan-20158:00 ,Urine Comments: [facility] [address] [place], [address] HCGUQUAL Negative {Negative} (Normal) Comments: Very dilute urine specimens, as indicated by a low specificgravity, may not contain loss prevention representative levels of hCG.If is still suspected, a first morning urinespecimen should be collected 48 hours later and tested. 53-Dky-97342:37 CBC, Platelets & Auto Diff Comments: PATIENT NOT FASTINGPERFORMED BY: [facility] Jvbsgq4808 [facility] [id number] Information: [id number] (68207) Immature Grans (Abs) 0.0 {x10E3/uL} (Normal) Range: [...] Panel, Comprehensive Comments: PATIENT NOT FASTINGPERFORMED BY: [facility] Toms RiverLsulkd4060 [facility] [id number] (27255) ALT (SGPT) 13 [iU]/L (Normal) Range: 0-32 [...] mg/dL (Normal) Range: 65-99 :37 Anti-TPO Antibody (47219) Comments: PATIENT NOT FASTINGPERFORMED BY: [facility]Co[facility] Toms RiverCfvfpw5433 [facility] [id number] Thyroid Peroxidase (TPO) Ab 7 {IU/mL} (Normal) Range: 0-34 :37 T4, FREE (THYROXINE) (66994) Comments: PATIENT NOT FASTINGPERFORMED BY: RONAK [facility]6370 [facility] [id number] T4,Free(Direct) 1.36 ng/dL (Normal) Range: 0.82-1.77 :37 T3, FREE (TRIDOTHYRONINE) (35045) Comments: PATIENT NOT FASTINGPERFORMED BY: [facility]6370 [facility] [id number] Triiodothyronine,Free,Serum 3.5 pg/mL (Normal) Range: 2.0-4.4 :37 TSH (42778) Comments: PATIENT NOT FASTINGPERFORMED BY: [facility]6370 [facility] [id number]; apt. 12-10-14 TSH 1.210 {uIU/mL} (Normal) Range: 0.450-4.500 Urine Drug Screen positive amphetamines :30 (Office - Urine (Normal) Drug Screen 6 Panel) (62690) Glucose, Serum 72 mg/dL (Normal) Comments: PATIENT WAS FASTINGPERFORMED BY: [facility]6370 [facility] [id number] 1:30 Range: 65-99 :30 Lipid Panel With LDL/HDL Comments: PATIENT WAS FASTINGPERFORMED BY: [facility]6370 [facility] [id number] Information: 287883,[id number] Ratio LDL/HDL Ratio 1.7 {ratio_units} (Normal) Range: [...] 141 mg/dL (Normal) Range: 100-189 :39 LIPASE (52847) Comments: PATIENT NOT FASTINGPERFORMED BY: [facility] Mgbraw0292 [address] RoadDublin [place] [id number] Lipase, Serum 20 U/L (Normal) Range: 0-59 :39 AMYLASE (24705) Comments: PATIENT NOT FASTINGPERFORMED BY: [facility] Aabinj5233 [address] RoadDublin [place] [id number] Amylase, Serum 33 U/L (Normal) Range: 31-124 :39 HCG Qualitative, Serum (14723) Comments: PATIENT NOT FASTINGPERFORMED BY: [facility] Hpbzuw9135 [address] [facility] [place] [id number] hCG,Beta Subunit,Qual,Serum Negative m[iU]/mL (Normal) :39 CALCIFIDIOL (07335) VIT D 25 Comments: PATIENT NOT FASTINGPERFORMED BY: [facility] Jeloim[address] [facility] [place] [id number] Vitamin D, 25-Hydroxy 35.9 ng/mL (Normal) Range: 30.0-100.0 Comments: Vitamin D deficiency has been defined by the [place] of[place] and an Endocrine Society practice guideline as alevel of serum 25-OH vitamin D less than 20 ng/mL (1,2).The Endocrine Society went on to further define vitamin Dinsufficiency as a level between 21 and 29 ng/mL (2).1. IOM ([place]). 2010. Dietary reference intakes for calcium and D. [place]: The National Academies Press.2. Kelly MF, [place], Shayan-Ventura CHICAS, et al. Evaluation, treatment, and prevention of vitamin D deficiency: an Endocrine Society clinical practice guideline. JCEM. 2010; 96(7):1911-30. :39 Folate (64768) Comments: PATIENT NOT FASTINGPERFORMED BY: [facility] Aefhow8755 [address] [facility] [place] [id number] Folate (Folic Acid), Serum 12.6 ng/mL (Normal) Comments: A serum folate concentration of less than 3.1 ng/mL isconsidered to represent clinical deficiency. :39 VITAMIN B-12 (CYANOCOBALAMIN) Comments: PATIENT NOT FASTINGPERFORMED BY: [employer] Txgvkf5933 [facility] [id number] (06376) Vitamin B12 703 pg/mL (Normal) Range: 211-946 :39 TSH (47146) Comments: PATIENT NOT FASTINGPERFORMED BY: [employer] Gntpxf2493 [facility] [id number] TSH 0.736 {uIU/mL} (Normal) Range: 0.450-4.500 :39 SED RATE ERYTHROCYTE (52425) Comments: PATIENT NOT FASTINGPERFORMED BY: [employer] Nsnwyk7389 [facility] [id number] Sedimentation Rate-Westergren 2 mm/h (Normal) Range: 0-32 :39 METABOLIC PANEL, Comments: PATIENT NOT FASTINGPERFORMED BY: [facility] Zdqvgp3458 [facility] [id number] Information: [id number] COMPREHENSIVE (27639) ALT (SGPT) 13 [iU]/L (Normal) Range: 0-32 [...] mg/dL (Normal) Range: 65-99 :39 CBC (AUTO) (05536) Comments: PATIENT NOT FASTINGPERFORMED BY: [employer] Hrhlqz8171 [facility] [id number] Platelets 348 {x10E3/uL} (Normal) Range: 150-379 RDW 13.6 % (Normal) Range: 12.3-15.4 MCHC 34.4 g/dL (Normal) Range: 31.5-35.7 MCH 29.0 pg (Normal) Range: 26.6-33.0 MCV 84 fL (Normal) Range: 79-97 Hematocrit 41.3 % (Normal) Range: 34.0-46.6 Hemoglobin 14.2 g/dL (Normal) Range: 11.1-15.9 RBC 4.90 {x10E6/uL} (Normal) Range: 3.77-5.28 WBC 10.5 {x10E3/uL} (Normal) Range: 3.4-10.8 :39 ALEC (ANTINUCLEAR ANTIBODY) Comments: PATIENT NOT FASTINGPERFORMED BY: [employer] Tpyayj5352 [facility] [id number] (60959) AELC Direct Negative (Normal) Plan of Care Name [...] Indication: Abdominal pain Abdominal pain : Reviewed Teamsite Developer Letter Indication: Abdominal pain Planned Observations Drug Screen (7drug + Alcohol) (11647)Indication: ADD (attention deficit disorder) On: 59-Kxf-103579:51 Request Glucose (39462)Indication: Encounter for pre-employment examination On: 20-Rcu-139574:35 Request Lipid Panel (90137)Indication: Encounter for pre-employment examination On: 67-Eoe-268796:35 Request Urine Drug Screen (Office - Urine Drug Screen 9 Panel) (24618)Indication: ADD (attention deficit disorder) On: 54-Rlr-657262:31 Request GLUCOSE TOLERANCE TEST (GTT) (95734)Indication: Fatigue On: 72-Juo-099101:23 Request Comments: 5 hr test CALCIUM SERUM (57676)Indication: Hypercalcemia On: 17-Jan-20149:23 Request Folate (39934)Indication: Fatigue On: 14-Jan-20149:26 Request Planned Encounters Medical; [...] Intent (J1885)By: Mala Alfredo CNP Comments: lot 85647md7.1.1630mgleft gmIMas, [employer] CRAFTSMAN Toradol Injection, 30 mg On: 17-Jan-2014 Intent (J1885)By: Cecilia Dhaliwal DO Comments: Lot:[id number]:10/16/2015Dose:30mgRoute:30mg Site:[facility] By:EVIE signed Cecilia Dhaliwal DO Ultrasound - GallbladderBy: Madhuri On: 14-Jan-2014 Intent Cecilia PINZON DO, Kathleen [...]
--- OUTSIDE RECORDS SUMMARY | 2018-05-09 16:55 | XMS RPT_ITS | Continuity of Care Document ---
:1990 Author Organization [facility] Address [facility] [facility] [address] [place] [address] Phone Care Team Providers Name Role Phone Cecilia Dhaliwal DO Unavailable Sha CAM, Teri Pyle Unavailable Nubia CAM, Corwin Unavailable Elida CAM, Yonathan Crenshaw Unavailable JACINTO Degroot Unavailable Unavailable Long PILING SETTER, Sirena Faustin Unavailable Unavailable Unavailable Unavailable Problems [...] Multiple thyroid nodules (E04.2, 241.1) Comments: RT 8b5x6oa and left 7l8t6ns with normal regional lymph nodes follow 6 [...] 0 days Quantity: 30 {Capsule} Refills: 0 Ordered:30-Dec-2017 Teri Dalton MD Start : 30-Dec-2017 Active Comments:DX: F98.8thirty FLUCONAZOLE, 150MG (Oral Tablet) [...] days Quantity: 30 {Capsule} Refills: 0 Ordered:08-Aug-2014 eTri Dalton MD Start : 08-Aug-2014 End : [...] WITH Contrast Result: Comments: See Note; NOTES: [facility] Imaging Services [address] [place] [address] Soft Tissue Neck WITH Contrast MR#: [id number] Acct: [id number] Name: KELIN MACIEL Cathleen p #: [phone] : 1990 F 27 From: Dante Myers MD PCP: Cecilia Dhaliwal DO Status: REG CLI Study: Soft Tissue Neck WITH Contrast Date of Exam: 10/20/17 Exam# [id number] Ordering Dr: Ryan Marino MD STUDY: CT [...] soft tissues are unremarkable. 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 Phlegmonou s features without organized abscess. Electronically Signed: Dante Myers, at 10:43 EDT Tel , Service support , CC: Otoniel lagos MD; Cecilia Dhaliwal DO Marketing Producer: Signed 05-Apr-2015 Emergency Department Summary Result: Comments: See Note; NOTES: [facility] Medical Records Department [address] [place] [address] Emergency Department Summary MR#: [id number] Acct: [id number] Name: KELIN FLORES Rep #: [id number] : 1990 24 From: Kimi Mario MD PCP: Cecilia Dhaliwal DO Status: [facility] DATE OF SERVICE: 04/05/2015 CHIEF COMPLAINT: Finger [...] an Alumafoam splint. She is referred to [facility] for outpatient followup and she was given a note for work restricti ons. DISPOSITION: Discharge. DIAGNOSIS: Left ring finger contusion. Kimi Mario MD T: NTS JOB: [id number] 04/05/15441 <Electronically signed by Kimi Mario MD> Date __ Kimi Mario MD Cosigner Signature (If Indicated): Date CC: Cecilia Dhaliwal DO Date Dictated : 04/05/15221 Date Transcribed: 04/05/15221 Marketing Producer: Signed 05-Apr-2015 Discharge Instruction Result: Comments: See Note; NOTES: [facility] Medical Records Department [address] [place] [address] Discharge Instruction 04/05/15215 MR#: [id number] Acct: [id number] Name: KELIN FLORES Rep #: [id number] : 1990 24 From: Kimi Mario MD [...] problems, contact your doctor. Call [facility] ([phone]) or report to the [facility] Emergency Room. Call 911 if necessary. 04/05/15220 <Electronically signed by Kimi Mario MD> Date Kimi Mario MD Cosign er Signature (If Indicated): Date CC: Cecilia Dhaliwal DO 05-Apr-2015 Hand Min 3 Views Result: Comments: See Note; NOTES: [facility] Imaging Services [address] [place] [address] Verdana 4d Hand Min 3 Views MR#: [id number] Acct: [id number] Name: Maine FLORES Rep #: [id number] : 1990 F 24 From: Jadon Bustamante PCP: Cecilia Dhaliwal DO Status: REG ER Study: Hand Min 3 Views Date of Exam: 04/05/15 Exam# [id number] Ordering Dr: Kimi Mario MD [facility] DY: X-RAY - LEFT HAND REASON FOR [...] DO at 2:17 EST , Service support [phone], RAD/Hand Min 3 Views IMPRESSION: Normal x-ray examinat ion of the hand. Electronically Signed: Jadon Bustamante DO at 2:17 EST , Service support [phone], CC: Kimi Mario MD; Cecilia Dhaliwal DO Marketing Producer: Signed 06-Feb-2015 Operative Report Result: Comments: See Note; NOTES: [facility] Medical Records Department [address] [place] [address] Operative Report MR#: [id number] Acct: [id number] Name: DAVID FLORES Rep #: [id number] : 1990 From: Ryan Marino MD PCP: Cecilia Dhaliwal DO Status: [facility] DATE OF SERVICE: 01/21/2015 DATE OF PROCEDURE: [...] condition. Otoniel Marino MD T: NTS JOB: [id number] 02/06/15 0905 <Electronically signed by Ryan Marino MD> Date ___ Ryan Marino MD Cosigner Signature (If Indicated): Date CC: Otoniel Marino MD; Cecilia Dhaliwal DO Date Dictated: 01/21/15 1225 Date Transcribed: 01/21/151224 Marketing Producer: Signed 21-Jan-2015 Discharge Instruction Result: Comments: See Note; NOTES: [facility] Medical Records Department [address] [place] [address] Instructions for Home/Discharge Instructions 01/21/15 1141 MR#: [id number] Acct: [id number] Name: KELIN FLORES Rep #: [id number] : 1990 From: Ryan Marino MD PCP: [...] W/WO Contrast Result: Comments: See Note; NOTES: [facility] Imaging Services [address] [place] [address] Verdana 4d Orbit Face Neck W/WO Contrast MR#: [id number] Acct: [id number] [facility] e: KELIN FLORES Rep #: [id number] : 1990 F 24 From: Irina Belcher PCP: Cecilia Dhaliwal DO Status: REG CLI Study: Orbit Face Neck W/WO Contrast Date of Exam: 12/31/14 Exam# [id number] [facility] [...] CT. Normal bilateral parotid glands. Normal bilateral blister packing machine tender spaces. Normal bilateral parapharynge al spaces. Normal [...] at 10:21 EST Tel , Service support [phone], N.B. : The above information has been verbally conveyed by Irina Belcher MD to Dr. Delacruz, covering physician, on 12/31/2014 10:13:34 (ET). CC: Otoniel Marino MD; Cecilia Dhaliwal DO Marketing Producer: Signed 10-Dec-2014 Soft Tissue Neck WITH Contrast Result: Comments: See Note; NOTES: [facility] Imaging Services [address] [place] [address] Verdana 4d Soft Tissue Neck WITH Contrast MR#: [id number] Acct: [id number] Na me: KELIN FOLRES Rep #: [id number] : 1990 F 24 From: Basilio Agudelo MD PCP: Cecilia Dhaliwal DO Status: REG CLI Study: Soft Tissue Neck WITH Contrast Date of Exam: 12/10/14 Exam# [id number] [facility] Dr: Mala Alfredo STUDY: CT SOFT [...] Both parotid glands are normal. Normal bilateral blister packing machine tender spaces. Normal bilatera l parapharyngeal spaces. Normal [...] MD at 11:54 EDT , Service support [phone], CC: Mala Alfredo; Cecilia Dhaliwal DO Marketing Producer: Signed 05-Dec-2014 Thyroid Result: Comments: See Note; NOTES: [facility] Imaging Services [address] [place] [address] Verdana 4d Thyroid MR#: [id number] Acct: [id number] Name: KELIN FLORES Rep #: [id number] : 1990 F 24 From: Joby Hurd MD PCP: Cecilia Dhaliwal DO Status: REG CLI Study: Thyroid Date of Exam: 12/05/14 Exam# [id number] Ordering Dr: Mala Alfredo STUDY: THYROID UL [...] at 9:37 EDT Tel , Service support [phone], CC: Mala Alfredo; Cecilia Dhaliwal DO Marketing Producer: Signed 15-Jan-2014 Gallbladder Result: Comments: See Note; NOTES: [facility] Imaging Services [address] [place] [address] Ultrasound Report MR#: [id number] Acct: [id number] Name: KELIN FLORES Rep #: [id number] : 1990 F 23 From: Heriberto Falk MD PCP: Cecilia Dhaliwal DO Status: REG CLI Study: Gallbladder Date of Exam: 01/15/14 Exam# [id number] Ordering Dr: Cecilia Dhaliwal DO STUDY: ABDOMINA [...] MD at 11:12 EST , Service support [phone], CC: Cecilia Dhaliwal DO Marketing Producer: Signed Social History Name Dates Details Alcohol Use: Occasional alcohol use. 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 [...] kg/m2 Body Surface Area Calculated 1.86 m2 22-Fuf-670767:14 Pulse 82 /min Comments: Pattern: Regular Respiration [...] kg/m2 Body Surface Area Calculated 1.86 m2 31-Ofc-521809:48 Temperature 100.7 f Comments: Method: Oral Pulse [...] 1.86 m2 Results Date Description Value Details 95-Jbc-73456:00 ASP DONE IN LAB See Note Comments: [facility] [address] [place], [place], [address] (Normal) Comments: Patient: KELIN MACIEL : 1990 (27/F) Acct Num: [id number] Phys: Jamila CAM,Otoniel Unit Num: [id number] Loc: LAB Specimen: [id number] Received: 10/13/17 - [...] for cytologystudy. / AM:rehan 10/13/17 TC:5 CPT: 44146, 27012, 31174 CYTOLOGY STUDY Slides are reviewed. DIAGNOSIS CYTOLOGY [...] 8.40 U/mL Comments: PATIENT NOT FASTINGPERFORMED BY: [facility] Mvkdhz0506 [facility] [id number] 4 IgG (Abnormal) Range: 0.00-0.59 Comments: Negative <0.60 Equivocal 0.60 - 0.69 Positive >0.69 :3 Cytomegalovirus (CMV) Ab, <30.0 AU/mL Comments: PATIENT NOT FASTINGPERFORMED BY: [facility] Rgkvxj5929 [facility] [id number] 4 IgM (Normal) Range: 0.0-29.9 Comments: Negative <30.0 Equivocal 30.0 - 34.9 Positive >34.9 A positive result is generally indicative of acute infection, reactivation or persistent IgM production. :34 EBV Acute Infection Antibodies Comments: PATIENT NOT FASTINGPERFORMED BY: [facility] Ykbzmm4689 [facility] [id number] Interpretation: SPRCS (Normal) Comments: EBV Interpretation Chart . Interpretation EBV-IgM EA(D)-IgG VCA-IgG EBNA-IgG . EBV Seronegative - - - - Early Phase + - - - Acute Primary + +or- + - Infection Convalescence/Past - +or- + + Infection Reactivated +or- + + + Infection + Antibody Present - Antibody Absent :34 Specimen Status Report Comments: PATIENT NOT FASTINGPERFORMED BY: [employer] Eaqitg9475 [facility] [id number] 57-Hjo-780520:3 Written Authorization WAR (Normal) Comments: PATIENT NOT FASTINGPERFORMED BY: [facility] Tlhjsb6411 [facility] [id number] 4 Comments: Written Authorization Received.Authorization received from BEATRIZ PAEZ LPN [id number] by Letha Aguilar :34 Anti-TPO Antibody (34663) Comments: PATIENT NOT FASTINGPERFORMED BY: [facility] Bluima1407 [facility] [id number] Liver-Kidney Microsomal Ab <1.0 {Units} (Normal) Range: 0.0-20.0 Comments: Negative 0.0 - 20.0 Equivocal 20.1 - 24.9 Positive >24.9 . LKM type 1 antibodies are detected in patients with autoimmune hepatitis type 2 and in up to 8% of patients with chronic HCV infection. :34 TSH (12033) Comments: PATIENT NOT FASTINGPERFORMED BY: [facility] Ukvpex9375 [address] AD[address]ublin [place] [id number] TSH 0.702 {uIU/mL} (Normal) Range: 0.450-4.500 :34 T4, FREE (THYROXINE) (69229) Comments: PATIENT NOT FASTINGPERFORMED BY: [employer] Invajs[address] VIPstore.comblin [place] [id number] T4,Free(Direct) 1.36 ng/dL (Normal) Range: 0.82-1.77 :34 T3, FREE (TRIDOTHYRONINE) (00251) Comments: PATIENT NOT FASTINGPERFORMED BY: [employer] Weznyv2904 [address] [facility] [place] [id number] Triiodothyronine,Free,Serum 2.9 pg/mL (Normal) Range: 2.0-4.4 :23 HgA1C , Office (79566) HgA1C , Office 4.9 % (Normal) Range: 4.6 - 7.1 :34 CALCIFIDIOL (16832) VIT D 25 Comments: PATIENT NOT FASTINGPERFORMED BY: [facility] Eklbcn4644 [address] [facility] [place] [id number] Vitamin D, 25-Hydroxy 16.0 ng/mL (Abnormal) Range: 30.0-100.0 Comments: Vitamin D deficiency has been defined by the [place] of[place]icine and an Endocrine Society practice guideline as alevel of serum 25-OH vitamin D less than 20 ng/mL (1,2).The Endocrine Society went on to further define vitamin Dinsufficiency as a level between 21 and 29 ng/mL (2).1. IOM ([place] of [employer]). 2010. Dietary reference intakes for calcium and D. [place]: The National Academies Press.2. Kelly MF, Rocky [place], Padmini CHICAS, et al. Evaluation, treatment, and prevention of vitamin D deficiency: an Endocrine Society clinical practice guideline. JCEM. 2010; 96(7):1911-30. :34 Folate (44743) Comments: PATIENT NOT FASTINGPERFORMED BY: CB [facility] Nshrxb8199 [address]y RoadDublin [place] [id number] Folate (Folic Acid), Serum 14.3 ng/mL (Normal) Comments: A serum folate concentration of less than 3.1 ng/mL isconsidered to represent clinical deficiency. :34 VITAMIN B-12 (CYANOCOBALAMIN) Comments: PATIENT NOT FASTINGPERFORMED BY: CB [facility] Iqkyxf4246 Lowery RoadDublin [place] [id number] (00193) Vitamin B12 734 pg/mL (Normal) Range: 232-1245 :34 SED RATE ERYTHROCYTE (82961) Comments: PATIENT NOT FASTINGPERFORMED BY: CB [facility] Gkwnlh8816 [address]y RoadDublin [place] [id number] Sedimentation Rate-Westergren 2 mm/h (Normal) Range: 0-32 :34 RHEUMATOID FACTOR-QUANT (14707) Comments: PATIENT NOT FASTINGPERFORMED BY: CB [facility] Yctatc2242 [address]y RoadDublin [place] [id number] RA Latex Turbid. <10.0 {IU/mL} (Normal) Range: 0.0-13.9 :34 METABOLIC PANEL, COMPREHENSIVE Comments: PATIENT NOT FASTINGPERFORMED BY: CB [facility] Affgcq7972 [address]y RoadDublin [place] [id number] (78388) ALT (SGPT) 11 [iU]/L (Normal) Range: 0-32 [...] Glucose, Serum 92 mg/dL (Normal) Range: 65-99 76-Zks-721032:34 C-REACTIVE PROTEIN (45303) Comments: PATIENT NOT FASTINGPERFORMED BY: [facility]icNewark [facility] CenterAtcuqy2936 [facility] [id number] C-Reactive Protein, Quant <0.3 mg/L (Normal) Range: 0.0-4.9 58-Oyp-245653:34 CBC (AUTO) (65162) Comments: PATIENT NOT FASTINGPERFORMED BY: MongoSluiceCoNewark Beth Israel Medical CenterScxymf9083 [facility] [id number] Platelets 308 {x10E3/uL} (Normal) Range: 150-379 RDW 13.8 % (Normal) Range: 12.3-15.4 MCHC 34.8 g/dL (Normal) Range: 31.5-35.7 MCH 29.0 pg (Normal) Range: 26.6-33.0 MCV 84 fL (Normal) Range: 79-97 Hematocrit 41.4 % (Normal) Range: 34.0-46.6 Hemoglobin 14.4 g/dL (Normal) Range: 11.1-15.9 RBC 4.96 {x10E6/uL} (Normal) Range: 3.77-5.28 WBC 8.6 {x10E3/uL} (Normal) Range: 3.4-10.8 28-Jbj-603815:34 ALEC (ANTINUCLEAR ANTIBODY) Comments: PATIENT NOT FASTINGPERFORMED BY: [facility] Qsecrf4585 [address] [facility] [id number] (09707) ALEC Direct Negative (Normal) 08-Bup-205122:51 NuSwab Vaginitis Plus Comments: PATIENT NOT FASTINGPERFORMED BY: [facility] Yyeumqvfjf6638 [facility] [id number] Information: C66420 (trich/BV/GC/tavo W/O Herpes) (05681) Neisseria gonorrhoeae, Negative (Normal) CRUZ Chlamydia trachomatis, [...] was developed and its performance characteristics determinedby [employer]. It has not been cleared or appro chapis by the Food and DrugAdministration. The FDA has determined that such clearance orapproval is not necessary. BVAB 2 Low - 0 {Score} (Normal) Atopobium vaginae Low - 0 {Score} (Normal) 3-Bqv-107270: Mass (define area) See Note (Normal) Comments: [facility] [address] [place], [address] 24 Comments: Patient: KELIN FLORES : 1990 (24/F) Acct Num: [id number] Phys: Jamila CAM,[place] Unit Num: [id number] Loc: [facility] Specimen: [id number] Received: 01/21/15 - 1028 Spec Ty pe: [...] one block. / AM: 01/21/15 TC:2 CPT: 65491 x2, 64968 x2, 51614 x2 HEADER OPERATION: Incisional biopsy neck mass [...] 21-Jan-20158:00 ,Urine Comments: [facility] [address] [place], [address] HCGUQUAL Negative {Negative} (Normal) Comments: Very dilute urine specimens, as indicated by a low specificgravity, may not contain compliance representative levels of hCG.If is still suspected, a first morning urinespecimen should be collected 48 hours later and tested. 20-Uzg-01087:37 CBC, Platelets & Auto Diff Comments: PATIENT NOT FASTINGPERFORMED BY: [facility] Yzlnxi3767 [facility] [id number] Information: [id number] (48131) Immature Grans (Abs) 0.0 {x10E3/uL} (Normal) Range: [...] Panel, Comprehensive Comments: PATIENT NOT FASTINGPERFORMED BY: [facility]icNew[facility] CenterEtzbrt3580 [facility] [id number] (03288) ALT (SGPT) 13 [iU]/L (Normal) Range: 0-32 [...] mg/dL (Normal) Range: 65-99 :37 Anti-TPO Antibody (82002) Comments: PATIENT NOT FASTINGPERFORMED BY: LabCoNewark [facility] Medical CenterExrcda0583 [facility] [id number] Thyroid Peroxidase (TPO) Ab 7 {IU/mL} (Normal) Range: 0-34 :37 T4, FREE (THYROXINE) (23094) Comments: PATIENT NOT FASTINGPERFORMED BY: RONAK [facility]Select [facility]6370 [facility] [id number] T4,Free(Direct) 1.36 ng/dL (Normal) Range: 0.82-1.77 :37 T3, FREE (TRIDOTHYRONINE) (12244) Comments: PATIENT NOT FASTINGPERFORMED BY: [facility]6370 [facility] [id number] Triiodothyronine,Free,Serum 3.5 pg/mL (Normal) Range: 2.0-4.4 :37 TSH (67645) Comments: PATIENT NOT FASTINGPERFORMED BY: [facility]6370 [facility] [id number]; apt. 12-10-14 TSH 1.210 {uIU/mL} (Normal) Range: 0.450-4.500 Urine Drug Screen positive amphetamines :30 (Office - Urine (Normal) Drug Screen 6 Panel) (70739) Glucose, Serum 72 mg/dL (Normal) Comments: PATIENT WAS FASTINGPERFORMED BY: [facility] Hospital6370 [facility] [id number] 1:30 Range: 65-99 :30 Lipid Panel With LDL/HDL Comments: PATIENT WAS FASTINGPERFORMED BY: [facility]6370 [facility] [id number] Information: 358311,Q88401 Ratio LDL/HDL Ratio 1.7 {ratio_units} (Normal) Range: [...] 141 mg/dL (Normal) Range: 100-189 :39 LIPASE (49691) Comments: PATIENT NOT FASTINGPERFORMED BY: [facility] Rgyfsl3219 [address] RoadDublin [place] [id number] Lipase, Serum 20 U/L (Normal) Range: 0-59 :39 AMYLASE (36592) Comments: PATIENT NOT FASTINGPERFORMED BY: [facility] Rgopvp9759 [address] RoadDublin [place] [id number] Amylase, Serum 33 U/L (Normal) Range: 31-124 :39 HCG Qualitative, Serum (11368) Comments: PATIENT NOT FASTINGPERFORMED BY: [facility] Dqfsmb4840 [address] [facility] [place] [id number] hCG,Beta Subunit,Qual,Serum Negative m[iU]/mL (Normal) :39 CALCIFIDIOL (12114) VIT D 25 Comments: PATIENT NOT FASTINGPERFORMED BY: [facility] Nwguvw5750 [address] [facility] [place] [id number] Vitamin D, 25-Hydroxy 35.9 ng/mL (Normal) Range: 30.0-100.0 Comments: Vitamin D deficiency has been defined by the [place] of[place] and an Endocrine Society practice guideline as alevel of serum 25-OH vitamin D less than 20 ng/mL (1,2).The Endocrine Society went on to further define vitamin Dinsufficiency as a level between 21 and 29 ng/mL (2).1. IOM ([place] of [place]). 2010. Dietary reference intakes for calcium and D. [place]: The National Academies Press.2. Kelly MF, [place], Shayan-Ventura CHICAS, et al. Evaluation, treatment, and prevention of vitamin D deficiency: an Endocrine Society clinical practice guideline. JCEM. 2010; 96(7):1911-30. :39 Folate (60876) Comments: PATIENT NOT FASTINGPERFORMED BY: [facility] Dtbtsl3811 [address] [facility] HospitalD[facility] [place] [id number] Folate (Folic Acid), Serum 12.6 ng/mL (Normal) Comments: A serum folate concentration of less than 3.1 ng/mL isconsidered to represent clinical deficiency. :39 VITAMIN B-12 (CYANOCOBALAMIN) Comments: PATIENT NOT FASTINGPERFORMED BY: [employer] Ybdroa0513 [facility] [id number] (96680) Vitamin B12 703 pg/mL (Normal) Range: 211-946 :39 TSH (13207) Comments: PATIENT NOT FASTINGPERFORMED BY: [employer] [facility] Gyhvas1691 [facility] [id number] TSH 0.736 {uIU/mL} (Normal) Range: 0.450-4.500 :39 SED RATE ERYTHROCYTE (86448) Comments: PATIENT NOT FASTINGPERFORMED BY: [employer] Knaxxs1762 [facility] [id number] Sedimentation Rate-Westergren 2 mm/h (Normal) Range: 0-32 :39 METABOLIC PANEL, Comments: PATIENT NOT FASTINGPERFORMED BY: [employer] Fxpynq5204 [facility] [id number] Information: [id number],[id number] COMPREHENSIVE (35373) ALT (SGPT) 13 [iU]/L (Normal) Range: 0-32 [...] mg/dL (Normal) Range: 65-99 :39 CBC (AUTO) (84069) Comments: PATIENT NOT FASTINGPERFORMED BY: [employer] Xgmvpj9234 [facility] [id number] Platelets 348 {x10E3/uL} (Normal) Range: 150-379 RDW 13.6 % (Normal) Range: 12.3-15.4 MCHC 34.4 g/dL (Normal) Range: 31.5-35.7 MCH 29.0 pg (Normal) Range: 26.6-33.0 MCV 84 fL (Normal) Range: 79-97 Hematocrit 41.3 % (Normal) Range: 34.0-46.6 Hemoglobin 14.2 g/dL (Normal) Range: 11.1-15.9 RBC 4.90 {x10E6/uL} (Normal) Range: 3.77-5.28 WBC 10.5 {x10E3/uL} (Normal) Range: 3.4-10.8 :39 ALEC (ANTINUCLEAR ANTIBODY) Comments: PATIENT NOT FASTINGPERFORMED BY: [employer] Agzkui1540 [facility] [id number] (20511) ALEC Direct Negative (Normal) Plan of Care [...] Indication: Abdominal pain Abdominal pain : Reviewed 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 Tender Letter Indication: Abdominal pain Planned Observations Drug Screen (7drug + Alcohol) (15257)Indication: ADD (attention deficit disorder) On: 55-Fmr-633898:51 Request Glucose (76029)Indication: Encounter for pre-employment examination On: 79-Ssy-062206:35 Request Lipid Panel (57780)Indication: Encounter for pre-employment examination On: 40-Klo-860293:35 Request Urine Drug Screen (Office - Urine Drug Screen 9 Panel) (51638)Indication: ADD (attention deficit disorder) On: 70-Fso-145670:31 Request GLUCOSE TOLERANCE TEST (GTT) (32099)Indication: Fatigue On: 26-Eea-399426:23 Request Comments: 5 hr test CALCIUM SERUM (85328)Indication: Hypercalcemia On: 17-Jan-20149:23 Request Folate (87125)Indication: Fatigue On: 14-Jan-20149:26 Request Planned Encounters Medical; [...] Intent (J1885)By: Mala Alfredo CNP Comments: lot 81812hs9.1.1630mgleft gmIMas, PILING SETTER Toradol Injection, 30 mg On: 17-Jan-2014 Intent (J1885)By: Cecilia Dhaliwal DO Comments: Lot:[id number]:10/16/2015Dose:30mgRoute:30mg Site:[facility] By:EVIE signed Cecilia Dhaliwal DO Ultrasound - [...]
--- OUTSIDE RECORDS SUMMARY | 2018-05-09 16:55 | XMS RPT_ITS | Continuity of Care Document ---
:1990 Author Organization [facility] Address [facility] [facility] [address] [place] [address] Phone Care Team Providers Name Role Phone Cecilia Dhaliwal DO Unavailable Sha CAM, Teri Pyle Unavailable Nubia CAM, Corwin Unavailable Elida CAM, Yonathan Crenshaw Unavailable JACINTO Degroot Unavailable Unavailable Long TEXTILE TECHNICAL OFFICER, Sirena Faustin Unavailable Unavailable Unavailable Unavailable Problems [...] Multiple thyroid nodules (E04.2, 241.1) Comments: RT 0x8a3xj and left 5y8l5wl with normal regional lymph nodes follow 6 [...] WITH Contrast Result: Comments: See Note; NOTES: [facility] Imaging Services [address] [place] [address] Soft Tissue Neck WITH Contrast MR#: [id number] Acct: [id number] Name: KELIN MACIEL Cathleen p #: [id number] : 1990 F 27 From: Dante Myers MD PCP: Cecilia Dhaliwal DO Status: REG CLI Study: Soft Tissue Neck WITH Contrast Date of Exam: 10/20/17 Exam# [id number] Ordering Dr: Ryan Marino MD STUDY: CT [...] soft tissues are unremarkable. 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 Phlegmonou s features without organized abscess. Electronically Signed: Dante Myers, at 10:43 EDT Tel , Service support , CC: Otoniel lagos MD; Cecilia Dhaliwal DO Pharmaceutical Sales Representative: Signed 05-Apr-2015 Emergency Department Summary Result: Comments: See Note; NOTES: [facility] Medical Records Department [address] [place] [address] Emergency Department Summary MR#: [id number] Acct: [id number] Name: KELIN FLORES Rep #: [id number] : 1990 24 From: Kimi Mario MD PCP: Cecilia Dhaliwal DO Status: [facility] DATE OF SERVICE: 04/05/2015 CHIEF COMPLAINT: Finger [...] contusion. Kimi Mario MD T: NTS JOB: [id number] 04/05/15441 <Electronically signed by Kimi Mario MD> Date __ Kimi Mario MD Cosigner Signature (If Indicated): Date CC: Cecilia Dhaliwal DO Date Dictated : 04/05/15221 Date Transcribed: 04/05/15221 Pharmaceutical Sales Representative: Signed 05-Apr-2015 Discharge Instruction Result: Comments: See Note; NOTES: [facility] Medical Records Department [address] [place] [address] Discharge Instruction 04/05/15215 MR#: [id number] Acct: [id number] Name: KELIN FLORES Rep #: [id number] : 1990 24 From: Kimi Mario MD [...] problems, contact your doctor. Call [facility] ([phone]) or report to the [facility] Emergency Room. Call 911 if necessary. 04/05/15220 <Electronically signed by Kimi Mario MD> Date Kimi Mario MD Cosign er Signature (If Indicated): Date CC: Cecilia Dhaliwal DO 05-Apr-2015 Hand Min 3 Views Result: Comments: See Note; NOTES: [facility] Services [address] [place] [address] Verdana 4d Hand Min 3 Views MR#: [id number] Acct: [id number] Name: Maine FLORES Rep #: [id number] : 1990 F 24 From: Jadon Bustamante PCP: Cecilia Dhaliwal DO Status: REG ER Study: Hand Min 3 Views Date of Exam: 04/05/15 Exam# [id number] Ordering Dr: Kimi Mario MD [facility] DY: X-RAY - LEFT HAND REASON FOR [...] DO at 2:17 EST , Service support [phone], RAD/Hand Min 3 Views IMPRESSION: Normal x-ray examinat ion of the hand. Electronically Signed: Jadon Bustamante DO at 2:17 EST , Service support [phone], CC: Kimi Mario MD; Cecilia Dhaliwal DO Pharmaceutical Sales Representative: Signed 06-Feb-2015 Operative Report Result: Comments: See Note; NOTES: [facility] Medical Records Department [address] [place] [address] Operative Report MR#: [id number] Acct: [id number] Name: DAVID FLORES Rep #: [id number] : 1990 From: Ryan Marino MD PCP: [...] condition. Otoniel Marino MD T: NTS JOB: [id number] 02/06/15 0905 <Electronically signed by Ryan Marino MD> Date ___ Ryan Marino MD Cosigner Signature (If Indicated): Date CC: Otoniel Marino MD; Cecilia Dhaliwal DO Date Dictated: 01/21/15 1225 Date Transcribed: 01/21/151224 Pharmaceutical Sales Representative: Signed 21-Jan-2015 Discharge Instruction Result: Comments: See Note; NOTES: [facility] Medical Records Department [address] [place] [address] Instructions for Home/Discharge Instructions 01/21/15 1141 MR#: [id number] Acct: [id number] Name: KELIN FLORES Rep #: [id number] : 1990 From: Ryan Marino MD PCP: [...] W/WO Contrast Result: Comments: See Note; NOTES: [facility] Services [address] [place] [address] Verdana 4d Orbit Face Neck W/WO Contrast MR#: [id number] Acct: [id number] [facility] e: KELIN FLORES Rep #: [id number] : 1990 F 24 From: Irina Belcher PCP: Cecilia Dhaliwal DO Status: REG CLI Study: Orbit Face Neck W/WO Contrast Date of Exam: 12/31/14 [id number] MD STUDY: MRI SOFT [...] CT. Normal bilateral parotid glands. Normal bilateral director of nurses registry spaces. Normal bilateral parapharynge al spaces. Normal [...] at 10:21 EST Tel , Service support [phone], N.B. : The above information has been verbally conveyed by Irina Belcher MD to Dr. Delacruz, covering physician, on 12/31/2014 10:13:34 (ET). CC: Otoniel Marino MD; Cecilia Dhaliwal DO Pharmaceutical Sales Representative: Signed 10-Dec-2014 Soft Tissue Neck WITH Contrast Result: Comments: See Note; NOTES: [facility] Services [address] [place] [address] Verdana 4d Soft Tissue Neck WITH Contrast MR#: [id number] Acct: [id number] Na me: KELIN FLORES Rep #: [id number] : 1990 F 24 From: Basilio Agudelo MD PCP: Cecilia Dhaliwal DO Status: REG CLI Study: Soft Tissue Neck WITH Contrast Date of Exam: 12/10/14 Exam# [id number] [facility] Dr: Mala Alfredo STUDY: CT SOFT TISSUE [...] Both parotid glands are normal. Normal bilateral director of nurses registry spaces. Normal bilatera l parapharyngeal spaces. Normal [...] MD at 11:54 EDT , Service support [phone], CC: Mala Alfredo; Cecilia Dhaliwal DO Pharmaceutical Sales Representative: Signed 05-Dec-2014 Thyroid Result: Comments: See Note; NOTES: [facility] Services [address] [place] [address] Verdana 4d Thyroid MR#: [id number] Acct: [id number] Name: KELIN FLORES Rep #: [id number] : 1990 F 24 From: Joby Hurd MD PCP: Cecilia Dhaliwal DO Status: REG CLI Study: Thyroid Date of Exam: 12/05/14 Exam# [id number] Ordering Dr: Mala Alfredo STUDY: THYROID UL [...] at 9:37 EDT Tel , Service support [phone], CC: Mala Alfredo; Cecilia Dhaliwal DO Pharmaceutical Sales Representative: Signed 15-Jan-2014 Gallbladder Result: Comments: See Note; NOTES: [facility] Services [address] [place] [address] Ultrasound Report MR#: [id number] Acct: [id number] Name: KELIN FLORES Rep #: [id number] : 1990 F 23 From: Heriberto Falk MD PCP: Cecilia Dhaliwal DO Status: REG CLI Study: Gallbladder Date of Exam: 01/15/14 Exam# [id number] Ordering Dr: Cecilia Dhaliwal DO STUDY: ABDOMINA [...] MD at 11:12 EST , Service support [phone], CC: Cecilia Dhaliwal DO Pharmaceutical Sales Representative: Signed Social History Name Dates Details Alcohol Use: Occasional alcohol use. 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 [...] kg/m2 Body Surface Area Calculated 1.86 m2 54-Vqh-141834:14 Pulse 82 /min Comments: Pattern: Regular Respiration [...] kg/m2 Body Surface Area Calculated 1.86 m2 68-Cqb-312430:48 Temperature 100.7 f Comments: Method: Oral Pulse [...] 1.86 m2 Results Date Description Value Details 29-Umt-20834:00 ASP DONE IN LAB See Note Comments: [facility] [address] [place], [place], [address] (Normal) Comments: Patient: KELIN MACIEL : 1990 (27/F) Acct Num: [id number] Phys: Jamila CAM,Otoniel Unit Num: [id number] Loc: LAB Specimen: [id number] Received: 10/13/17 - [...] for cytologystudy. / AM:rehan 10/13/17 TC:5 CPT: 04265, 01634, 67083 CYTOLOGY STUDY Slides are reviewed. DIAGNOSIS CYTOLOGY [...] 8.40 U/mL Comments: PATIENT NOT FASTINGPERFORMED BY: [facility] Zszfcu6924 [facility] [id number] 4 IgG (Abnormal) Range: 0.00-0.59 Comments: Negative <0.60 Equivocal 0.60 - 0.69 Positive >0.69 :3 Cytomegalovirus (CMV) Ab, <30.0 AU/mL Comments: PATIENT NOT FASTINGPERFORMED BY: [facility] Wjpzxb6059 [facility] [id number] 4 IgM (Normal) Range: 0.0-29.9 Comments: Negative <30.0 Equivocal 30.0 - 34.9 Positive >34.9 A positive result is generally indicative of acute infection, reactivation or persistent IgM production. :34 EBV Acute Infection Antibodies Comments: PATIENT NOT FASTINGPERFORMED BY: [facility] Qbsinv5489 [facility] [id number] Interpretation: SPRCS (Normal) Comments: EBV Interpretation Chart . Interpretation EBV-IgM EA(D)-IgG VCA-IgG EBNA-IgG . EBV Seronegative - - - - Early Phase + - - - Acute Primary + +or- + - Infection Convalescence/Past - +or- + + Infection Reactivated +or- + + + Infection + Antibody Present - Antibody Absent :34 Specimen Status Report Comments: PATIENT NOT FASTINGPERFORMED BY: [employer] Kurksa8977 [facility] [id number] 24-Qzd-934437:3 Written Authorization WAR (Normal) Comments: PATIENT NOT FASTINGPERFORMED BY: [facility] Mvfaov6641 [facility] [id number] 4 Comments: Written Authorization Received.Authorization received from BEATRIZ PAEZ LPN [id number] by Letha Aguilar :34 Anti-TPO Antibody (43329) Comments: PATIENT NOT FASTINGPERFORMED BY: [facility] Cvfmhg8860 [facility] [id number] Liver-Kidney Microsomal Ab <1.0 {Units} (Normal) Range: 0.0-20.0 Comments: Negative 0.0 - 20.0 Equivocal 20.1 - 24.9 Positive >24.9 . LKM type 1 antibodies are detected in patients with autoimmune hepatitis type 2 and in up to 8% of patients with chronic HCV infection. :34 TSH (95630) Comments: PATIENT NOT FASTINGPERFORMED BY: [facility] Rtownh0[address] Visual IQDublin [place] [id number] TSH 0.702 {uIU/mL} (Normal) Range: 0.450-4.500 :34 T4, FREE (THYROXINE) (75170) Comments: PATIENT NOT FASTINGPERFORMED BY: [employer] Zkgkou23[address] [place] [place] [id number] T4,Free(Direct) 1.36 ng/dL (Normal) Range: 0.82-1.77 :34 T3, FREE (TRIDOTHYRONINE) (85275) Comments: PATIENT NOT FASTINGPERFORMED BY: [facility] Frksvq[address] [facility] [place] [id number] Triiodothyronine,Free,Serum 2.9 pg/mL (Normal) Range: 2.0-4.4 :23 HgA1C , Office (73866) HgA1C , Office 4.9 % (Normal) Range: 4.6 - 7.1 :34 CALCIFIDIOL (70763) VIT D 25 Comments: PATIENT NOT FASTINGPERFORMED BY: [facility] Ocwezy[address] [facility] [place] [id number] Vitamin D, 25-Hydroxy 16.0 ng/mL (Abnormal) Range: 30.0-100.0 Comments: Vitamin D deficiency has been defined by the [place] of[place]icine and an Endocrine Society practice guideline as alevel of serum 25-OH vitamin D less than 20 ng/mL (1,2).The Endocrine Society went on to further define vitamin Dinsufficiency as a level between 21 and 29 ng/mL (2).1. IOM ([place] of Medicine). 2010. Dietary reference intakes for calcium and D. [place]: The National Academies Press.2. Kelly MF, Rocky NC, Padmini CHICAS, et al. Evaluation, treatment, and prevention of vitamin D deficiency: an Endocrine Society clinical practice guideline. JCEM. 2010; 96(7):1911-30. :34 Folate (05079) Comments: PATIENT NOT FASTINGPERFORMED BY: CB [facility] Igaayr5525 Lowery RoadDublin [place] [id number] Folate (Folic Acid), Serum 14.3 ng/mL (Normal) Comments: A serum folate concentration of less than 3.1 ng/mL isconsidered to represent clinical deficiency. :34 VITAMIN B-12 (CYANOCOBALAMIN) Comments: PATIENT NOT FASTINGPERFORMED BY: CB [facility] Njragq7499 [address]y RoadDublin [place] [id number] (69172) Vitamin B12 734 pg/mL (Normal) Range: 232-1245 :34 SED RATE ERYTHROCYTE (14908) Comments: PATIENT NOT FASTINGPERFORMED BY: CB [facility] Yjoqdr0908 [address] RoadDublin [place] [id number] Sedimentation Rate-Westergren 2 mm/h (Normal) Range: 0-32 :34 RHEUMATOID FACTOR-QUANT (66062) Comments: PATIENT NOT FASTINGPERFORMED BY: CB [facility] Zaohjy1757 [address]y RoadDublin [place] [id number] RA Latex Turbid. <10.0 {IU/mL} (Normal) Range: 0.0-13.9 :34 METABOLIC PANEL, COMPREHENSIVE Comments: PATIENT NOT FASTINGPERFORMED BY: CB [facility] Crlqot3942 [address]y RoadDublin [place] [id number] (06310) ALT (SGPT) 11 [iU]/L (Normal) Range: 0-32 [...] Glucose, Serum 92 mg/dL (Normal) Range: 65-99 47-Hju-835851:34 C-REACTIVE PROTEIN (28683) Comments: PATIENT NOT FASTINGPERFORMED BY: [employer] BiosciencesRobert Wood Johnson University HospitalMvlyiq7592 [facility] [id number] C-Reactive Protein, Quant <0.3 mg/L (Normal) Range: 0.0-4.9 57-Qvd-935291:34 CBC (AUTO) (66185) Comments: PATIENT NOT FASTINGPERFORMED BY: [employer] SemiconductorCoRobert Wood Johnson University HospitalWdrisk6684 [facility] [id number] Platelets 308 {x10E3/uL} (Normal) Range: 150-379 RDW 13.8 % (Normal) Range: 12.3-15.4 MCHC 34.8 g/dL (Normal) Range: 31.5-35.7 MCH 29.0 pg (Normal) Range: 26.6-33.0 MCV 84 fL (Normal) Range: 79-97 Hematocrit 41.4 % (Normal) Range: 34.0-46.6 Hemoglobin 14.4 g/dL (Normal) Range: 11.1-15.9 RBC 4.96 {x10E6/uL} (Normal) Range: 3.77-5.28 WBC 8.6 {x10E3/uL} (Normal) Range: 3.4-10.8 35-Bnk-121476:34 ALEC (ANTINUCLEAR ANTIBODY) Comments: PATIENT NOT FASTINGPERFORMED BY: [facility] Itsgrh2325 [address] [facility] [id number] (91569) ALEC Direct Negative (Normal) 75-Ahm-882390:51 NuSwab Vaginitis Plus Comments: PATIENT NOT FASTINGPERFORMED BY: [facility] Ehirycqptg4[address] [facility] [id number] Information: [id number] (trich/BV/GC/tavo W/O Herpes) (33671) Neisseria gonorrhoeae, Negative (Normal) CRUZ Chlamydia trachomatis, [...] was developed and its performance characteristics determinedby [employer]. It has not been cleared or appro chapis by the Food and DrugAdministration. The FDA has determined that such clearance orapproval is not necessary. BVAB 2 Low - 0 {Score} (Normal) Atopobium vaginae Low - 0 {Score} (Normal) 9-Xaz-287931: Mass (define area) See Note (Normal) Comments: [facility] [address] [place], [address] 24 Comments: Patient: KELIN FLORES : 1990 (24/F) Acct Num: [id number] Phys: Jamila CAM,[place] Unit Num: [id number] [place] [facility] [place]: [id number] Received: 01/21/15 - 1028 Spec Ty pe: [...] one block. / AM: 01/21/15 TC:2 CPT: 83782 x2, 34435 x2, 53240 x2 HEADER OPERATION: Incisional biopsy neck mass [...] 21-Jan-20158:00 ,Urine Comments: [facility] [address] [place], [address] HCGUQUAL Negative {Negative} (Normal) Comments: Very dilute urine specimens, as indicated by a low specificgravity, may not contain insurance representative levels of hCG.If is still suspected, a first morning urinespecimen should be collected 48 hours later and tested. 05-Ilv-78684:37 CBC, Platelets & Auto Diff Comments: PATIENT NOT FASTINGPERFORMED BY: [facility] Dypeoj7186 [facility] [id number] Information: [id number] (46657) Immature Grans (Abs) 0.0 {x10E3/uL} (Normal) Range: [...] Panel, Comprehensive Comments: PATIENT NOT FASTINGPERFORMED BY: [facility] BiosciencesRobert Wood Johnson University HospitalThnfxg2401 [facility] [id number] (99757) ALT (SGPT) 13 [iU]/L (Normal) Range: 0-32 [...] mg/dL (Normal) Range: 65-99 :37 Anti-TPO Antibody (16941) Comments: PATIENT NOT FASTINGPERFORMED BY: [facility]CoRobert Wood Johnson University HospitalXviqdf7530 [facility] [id number] Thyroid Peroxidase (TPO) Ab 7 {IU/mL} (Normal) Range: 0-34 :37 T4, FREE (THYROXINE) (94013) Comments: PATIENT NOT FASTINGPERFORMED BY: RONAK [facility]St[facility]6370 [facility] [id number] T4,Free(Direct) 1.36 ng/dL (Normal) Range: 0.82-1.77 :37 T3, FREE (TRIDOTHYRONINE) (75155) Comments: PATIENT NOT FASTINGPERFORMED BY: [facility]ma6370 [facility] [id number] Triiodothyronine,Free,Serum 3.5 pg/mL (Normal) Range: 2.0-4.4 :37 TSH (89863) Comments: PATIENT NOT FASTINGPERFORMED BY: [facility]6370 [facility] [id number]; apt. 12-10-14 TSH 1.210 {uIU/mL} (Normal) Range: 0.450-4.500 Urine Drug Screen positive amphetamines :30 (Office - Urine (Normal) Drug Screen 6 Panel) (66655) Glucose, Serum 72 mg/dL (Normal) Comments: PATIENT WAS FASTINGPERFORMED BY: [facility]6370 [facility] [id number] 1:30 Range: 65-99 :30 Lipid Panel With LDL/HDL Comments: PATIENT WAS FASTINGPERFORMED BY: [facility]6370 [facility] [id number] Information: [id number] Ratio LDL/HDL Ratio 1.7 {ratio_units} (Normal) Range: [...] 141 mg/dL (Normal) Range: 100-189 :39 LIPASE (60222) Comments: PATIENT NOT FASTINGPERFORMED BY: [facility] Irzidp8637 [address] RoadDublin [place] [id number] Lipase, Serum 20 U/L (Normal) Range: 0-59 :39 AMYLASE (75141) Comments: PATIENT NOT FASTINGPERFORMED BY: [facility] Qqwvfj8748 [address] RoadDublin [place] [id number] Amylase, Serum 33 U/L (Normal) Range: 31-124 :39 HCG Qualitative, Serum (60054) Comments: PATIENT NOT FASTINGPERFORMED BY: [facility] Zwzxgp[address] [facility] [place] [id number] hCG,Beta Subunit,Qual,Serum Negative m[iU]/mL (Normal) :39 CALCIFIDIOL (69005) VIT D 25 Comments: PATIENT NOT FASTINGPERFORMED BY: [facility] [address]ra[address] [facility] [place] [id number] Vitamin D, 25-Hydroxy 35.9 ng/mL (Normal) Range: 30.0-100.0 Comments: Vitamin D deficiency has been defined by the [place] of[place]icine and an Endocrine Society practice guideline as alevel of serum 25-OH vitamin D less than 20 ng/mL (1,2).The Endocrine Society went on to further define vitamin Dinsufficiency as a level between 21 and 29 ng/mL (2).1. IOM ([place] of Medicine). 2010. Dietary reference intakes for calcium and D. [place]: The National Academies Press.2. Kelly MF, [place], Shayan-Ventura CHICAS, et al. Evaluation, treatment, and prevention of vitamin D deficiency: an Endocrine Society clinical practice guideline. JCEM. 2010; 96(7):1911-30. :39 Folate (35566) Comments: PATIENT NOT FASTINGPERFORMED BY: [facility] Antknb5090 [address] [facility] HealthD[facility] [place] [id number] Folate (Folic Acid), Serum 12.6 ng/mL (Normal) Comments: A serum folate concentration of less than 3.1 ng/mL isconsidered to represent clinical deficiency. :39 VITAMIN B-12 (CYANOCOBALAMIN) Comments: PATIENT NOT FASTINGPERFORMED BY: [facility] Yimvlb3845 [facility] [id number] (17055) Vitamin B12 703 pg/mL (Normal) Range: 211-946 :39 TSH (58239) Comments: PATIENT NOT FASTINGPERFORMED BY: [employer] [facility] Wrtuir8638 [facility] [id number] TSH 0.736 {uIU/mL} (Normal) Range: 0.450-4.500 :39 SED RATE ERYTHROCYTE (72814) Comments: PATIENT NOT FASTINGPERFORMED BY: [facility] Xkaxck4698 [facility] [id number] Sedimentation Rate-Westergren 2 mm/h (Normal) Range: 0-32 :39 METABOLIC PANEL, Comments: PATIENT NOT FASTINGPERFORMED BY: [facility] Lxiqug1121 [facility] [id number] Information: [id number] COMPREHENSIVE (10095) ALT (SGPT) 13 [iU]/L (Normal) Range: 0-32 [...] mg/dL (Normal) Range: 65-99 :39 CBC (AUTO) (50172) Comments: PATIENT NOT FASTINGPERFORMED BY: [employer] Zyejpe5326 [facility] [id number] Platelets 348 {x10E3/uL} (Normal) Range: 150-379 RDW 13.6 % (Normal) Range: 12.3-15.4 MCHC 34.4 g/dL (Normal) Range: 31.5-35.7 MCH 29.0 pg (Normal) Range: 26.6-33.0 MCV 84 fL (Normal) Range: 79-97 Hematocrit 41.3 % (Normal) Range: 34.0-46.6 Hemoglobin 14.2 g/dL (Normal) Range: 11.1-15.9 RBC 4.90 {x10E6/uL} (Normal) Range: 3.77-5.28 WBC 10.5 {x10E3/uL} (Normal) Range: 3.4-10.8 :39 ALEC (ANTINUCLEAR ANTIBODY) Comments: PATIENT NOT FASTINGPERFORMED BY: [employer] Psnyup2703 [facility] [id number] (94340) ALEC Direct Negative (Normal) Plan of Care [...] Indication: Abdominal pain Abdominal pain : Reviewed Management Sme Letter Indication: Abdominal pain Planned Observations Drug Screen (7drug + Alcohol) (77478)Indication: ADD (attention deficit disorder) On: 75-Yah-189180:51 Request Glucose (65133)Indication: Encounter for pre-employment examination On: 17-Lwl-105572:35 Request Lipid Panel (75096)Indication: Encounter for pre-employment examination On: 57-War-778827:35 Request Urine Drug Screen (Office - Urine Drug Screen 9 Panel) (18233)Indication: ADD (attention deficit disorder) On: 66-Jzx-659088:31 Request GLUCOSE TOLERANCE TEST (GTT) (49868)Indication: Fatigue On: 26-Nke-324430:23 Request Comments: 5 hr test CALCIUM SERUM (32128)Indication: Hypercalcemia On: 17-Jan-20149:23 Request Folate (95961)Indication: Fatigue On: 14-Jan-20149:26 Request Planned Encounters Medical; [...] Intent (J1885)By: Mala Alfredo CNP Comments: lot 63848yl5.1.1630mgleft gmIMas, TEXTILE TECHNICAL OFFICER Toradol Injection, 30 mg On: 17-Jan-2014 Intent (J1885)By: Cecilia Dhaliwal DO Comments: Lot:[id number]:10/16/2015Dose:30mgRoute:30mg Site:[facility] By:EVIE signed Cecilia Dhaliwal DO Ultrasound - [...]
--- OUTSIDE RECORDS SUMMARY | 2018-05-09 16:56 | XMS RPT_ITS | Continuity of Care Document ---
:1990 Author Organization [facility] Address [facility] [facility] [address] [address] [place] [address] Phone Care Team Providers Name Role Phone Cecilia Dhaliwal DO Unavailable Sha CAM, Teri Pyle Unavailable Nubia CAM, Corwin Unavailable Elida CAM, Yonathan Crenshaw Unavailable JACINTO Degroot Unavailable Unavailable Long HAND COMPOSITOR, Sirena Faustin Unavailable Unavailable Unavailable Unavailable Problems [...] Multiple thyroid nodules (E04.2, 241.1) Comments: RT 7s1d1iw and left 5i3f9wv with normal regional lymph nodes follow 6 [...] Dates Details No Known Historical Medications Vyvanse 50 MG Oral Capsule 1 (one) Capsule in [...] WITH Contrast Result: Comments: See Note; NOTES: [facility] Imaging Services [address] [place] [address] Soft Tissue Neck WITH Contrast MR#: [id number] Acct: [id number] Name: KELIN MACIEL Cathleen p #: [id number] : 1990 F 27 From: Dante Myers MD PCP: Cecilia Dhaliwal DO Status: REG CLI Study: Soft Tissue Neck WITH Contrast Date of Exam: 10/20/17 Exam# [id number] Ordering Dr: Ryan Marino MD STUDY: CT [...] soft tissues are unremarkable. 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 Phlegmonou s features without organized abscess. Electronically Signed: Dante Myers, at 10:43 EDT Tel , Service support , CC: Otoniel lagos MD; Cecilia Dhaliwal DO City Assessor: Signed 05-Apr-2015 Emergency Department Summary Result: Comments: See Note; NOTES: [facility] Medical Records Department [address] [place] [address] Emergency Department Summary MR#: [id number] Acct: [id number] Name: KELIN FLORES Rep #: [id number] : 1990 24 From: Kimi Mario MD PCP: Cecilia Dhaliwal DO Status: [facility] DATE OF SERVICE: 04/05/2015 CHIEF COMPLAINT: Finger [...] an Alumafoam splint. She is referred to [facility] for outpatient followup and she was given a note for work restricti ons. DISPOSITION: Discharge. DIAGNOSIS: Left ring finger contusion. Kimi Mario MD T: NTS JOB: [id number] 04/05/15441 <Electronically signed by Kimi Mario MD> Date __ Kimi Mario MD Cosigner Signature (If Indicated): Date CC: Cecilia Dhaliwal DO Date Dictated : 04/05/15221 Date Transcribed: 04/05/15221 City Assessor: Signed 05-Apr-2015 Discharge Instruction Result: Comments: See Note; NOTES: [facility] Medical Records Department [address] [place] [address] Discharge Instruction 04/05/15215 MR#: [id number] Acct: [id number] Name: KELIN FLORES Rep #: [id number] : 1990 24 From: Kimi Mario MD [...] problems, contact your doctor. Call [facility] ([phone]) or report to the [facility] Emergency Room. Call 911 if necessary. 04/05/15220 <Electronically signed by Kimi Mario MD> Date Kimi Mario MD Cosign er Signature (If Indicated): Date CC: Cecilia Dhaliwal DO 05-Apr-2015 Hand Min 3 Views Result: Comments: See Note; NOTES: [facility] Imaging Services [address] [place] [address] Verdana 4d Hand Min 3 Views MR#: [id number] Acct: [id number] Name: Maine FLORES Rep #: [id number] : 1990 F 24 From: Jadon Bustamante PCP: Cecilia Dhaliwal DO Status: REG ER Study: Hand Min 3 Views Date of Exam: 04/05/15 Exam# [id number] Ordering Dr: Kimi Mario MD [facility] DY: X-RAY - LEFT HAND REASON FOR [...] DO at 2:17 EST , Service support [phone], RAD/Hand Min 3 Views IMPRESSION: Normal x-ray examinat ion of the hand. Electronically Signed: Jadon Bustamante DO at 2:17 EST , Service support [phone], CC: Kimi Mario MD; Cecilia Dhaliwal DO City Assessor: Signed 06-Feb-2015 Operative Report Result: Comments: See Note; NOTES: [facility] Medical Records Department [address] [place] [address] Operative Report MR#: [id number] Acct: [id number] Name: DAVID FLORES Rep #: [id number] : 1990 From: Ryan Marino MD PCP: Cecilia Dhaliwal DO Status: [facility] DATE OF SERVICE: 01/21/2015 DATE [...] condition. Otoniel Marino MD T: NTS JOB: [id number] 02/06/15 0905 <Electronically signed by Ryan Marino MD> Date ___ Ryan Mairno MD Cosigner Signature (If Indicated): Date CC: Otoniel Marino MD; Cecilia Dhaliwal DO Date Dictated: 01/21/15 1225 Date Transcribed: 01/21/151224 City Assessor: Signed 21-Jan-2015 Discharge Instruction Result: Comments: See Note; NOTES: [facility] Medical Records Department [address] [place] [address] Instructions for Home/Discharge Instructions 01/21/15 1141 MR#: [id number] Acct: [id number] Name: KELIN FLORES Rep #: [id number] : 1990 From: Ryan Marino MD PCP: Cecilia Dhaliwal DO Status: REG GAC Discharge Diet: Light diet - advance as [...] W/WO Contrast Result: Comments: See Note; NOTES: [facility] Imaging Services [address] [place] [address] Verdana 4d Orbit Face Neck W/WO Contrast MR#: [id number] Acct: [id number] [facility] e: KELIN FLORES Rep #: [id number] : 1990 F 24 From: Irina Belcher PCP: Cecilia Dhaliwal DO Status: REG CLI Study: Orbit Face Neck W/WO Contrast Date of Exam: 12/31/14 Exam# [id number] [facility] Marino MD STUDY: MRI SOFT [...] CT. Normal bilateral parotid glands. Normal bilateral lining inserter spaces. Normal bilateral parapharynge al spaces. Normal [...] at 10:21 EST Tel , Service support [phone], N.B. : The above information has been verbally conveyed by Irina Belcher MD to Dr. Delacruz, covering physician, on 12/31/2014 10:13:34 (ET). CC: Otoniel Marino MD; Cecilia Dhaliwal DO City Assessor: Signed 10-Dec-2014 Soft Tissue Neck WITH Contrast Result: Comments: See Note; NOTES: [facility] Imaging Services [address] [place] [address] Verdana 4d Soft Tissue Neck WITH Contrast MR#: [id number] Acct: [id number] Na me: KELIN FLORES Rep #: [id number] : 1990 F 24 From: Basilio Agudelo MD PCP: Cecilia Dhaliwal DO Status: REG CLI Study: Soft Tissue Neck WITH Contrast Date of Exam: 12/10/14 Exam# [id number] [facility] Dr: Mala Alfredo STUDY: CT [...] Both parotid glands are normal. Normal bilateral lining inserter spaces. Normal bilatera l parapharyngeal spaces. Normal [...] MD at 11:54 EDT , Service support [phone], CC: Mala Alfredo; Cecilia Dhaliwal DO City Assessor: Signed 05-Dec-2014 Thyroid Result: Comments: See Note; NOTES: [facility] Imaging Services [address] [place] [address] Verdana 4d Thyroid MR#: [id number] Acct: [id number] Name: KELIN FLORES Rep #: [id number] : 1990 F 24 From: Joby Hurd MD PCP: Cecilia Dhaliwal DO Status: REG CLI Study: Thyroid Date of Exam: 12/05/14 Exam# [id number] Ordering Dr: Mala Alfredo STUDY: THYROID UL [...] at 9:37 EDT Tel , Service support [phone], CC: Mala Alfredo; Cecilia Dhaliwal DO City Assessor: Signed 15-Jan-2014 Gallbladder Result: Comments: See Note; NOTES: [facility] Imaging Services [address] [place] [address] Ultrasound Report MR#: [id number] Acct: [id number] Name: KELIN FLORES Rep #: [id number] : 1990 F 23 From: Heriberto Falk MD PCP: Cecilia Dhaliwal DO Status: REG CLI Study: Gallbladder Date of Exam: 01/15/14 Exam# [id number] Ordering Dr: Cecilia Dhaliwal DO STUDY: ABDOMINA [...] MD at 11:12 EST , Service support [phone], CC: Cecilia Dhaliwal DO City Assessor: Signed Social History Name Dates Details Alcohol Use: Occasional alcohol use. 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 [...] kg/m2 Body Surface Area Calculated 1.86 m2 01-Ylr-002249:14 Pulse 82 /min Comments: Pattern: Regular Respiration [...] kg/m2 Body Surface Area Calculated 1.86 m2 21-Pfe-796038:48 Temperature 100.7 f Comments: Method: Oral Pulse [...] 1.86 m2 Results Date Description Value Details 19-Qhy-61356:00 ASP DONE IN LAB See Note Comments: [facility] [address] [place], [place], [address] (Normal) Comments: Patient: KELIN MACIEL : 1990 (27/F) Acct Num: [id number] Phys: Jamila CAM,Otoniel Unit Num: [id number] Loc: LAB Specimen: [id number] Received: 10/13/17 - [...] for cytologystudy. / AM:rehan 10/13/17 TC:5 CPT: 40222, 01953, 44395 CYTOLOGY STUDY Slides are reviewed. DIAGNOSIS CYTOLOGY [...] 8.40 U/mL Comments: PATIENT NOT FASTINGPERFORMED BY: [facility] Cvyrjw0031 [facility] [id number] 4 IgG (Abnormal) Range: 0.00-0.59 Comments: Negative <0.60 Equivocal 0.60 - 0.69 Positive >0.69 :3 Cytomegalovirus (CMV) Ab, <30.0 AU/mL Comments: PATIENT NOT FASTINGPERFORMED BY: [facility] Ubqluv7059 [facility] [id number] 4 IgM (Normal) Range: 0.0-29.9 Comments: Negative <30.0 Equivocal 30.0 - 34.9 Positive >34.9 A positive result is generally indicative of acute infection, reactivation or persistent IgM production. :34 EBV Acute Infection Antibodies Comments: PATIENT NOT FASTINGPERFORMED BY: [facility] Yzcbyw6373 [facility] [id number] Interpretation: SPRCS (Normal) Comments: EBV Interpretation Chart . Interpretation EBV-IgM EA(D)-IgG VCA-IgG EBNA-IgG . EBV Seronegative - - - - Early Phase + - - - Acute Primary + +or- + - Infection Convalescence/Past - +or- + + Infection Reactivated +or- + + + Infection + Antibody Present - Antibody Absent :34 Specimen Status Report Comments: PATIENT NOT FASTINGPERFORMED BY: [employer] Iurjtz7702 [facility] [id number] 08-Axw-051366:3 Written Authorization WAR (Normal) Comments: PATIENT NOT FASTINGPERFORMED BY: [facility] Ovvvpd1794 [facility] [id number] 4 Comments: Written Authorization Received.Authorization received from BEATRIZ PAEZ LPN [id number] by Letha Aguilar :34 Anti-TPO Antibody (88540) Comments: PATIENT NOT FASTINGPERFORMED BY: [facility] Pppmuq2877 [facility] [id number] Liver-Kidney Microsomal Ab <1.0 {Units} (Normal) Range: 0.0-20.0 Comments: Negative 0.0 - 20.0 Equivocal 20.1 - 24.9 Positive >24.9 . LKM type 1 antibodies are detected in patients with autoimmune hepatitis type 2 and in up to 8% of patients with chronic HCV infection. :34 TSH (68099) Comments: PATIENT NOT FASTINGPERFORMED BY: [facility] Odpwfi6212 [address] Holographic ImagingDublin [place] [id number] TSH 0.702 {uIU/mL} (Normal) Range: 0.450-4.500 :34 T4, FREE (THYROXINE) (09634) Comments: PATIENT NOT FASTINGPERFORMED BY: [employer] Tinwkn6068 [address] [facility] Templatesblin [place] [id number] T4,Free(Direct) 1.36 ng/dL (Normal) Range: 0.82-1.77 :34 T3, FREE (TRIDOTHYRONINE) (52513) Comments: PATIENT NOT FASTINGPERFORMED BY: [employer] Gwlwbu2268 [address] [facility] [place] [id number] Triiodothyronine,Free,Serum 2.9 pg/mL (Normal) Range: 2.0-4.4 :23 HgA1C , Office (19687) HgA1C , Office 4.9 % (Normal) Range: 4.6 - 7.1 :34 CALCIFIDIOL (13032) VIT D 25 Comments: PATIENT NOT FASTINGPERFORMED BY: [facility] Jtprgt9485 [address] [facility] [place] [id number] Vitamin D, 25-Hydroxy 16.0 ng/mL (Abnormal) Range: 30.0-100.0 Comments: Vitamin D deficiency has been defined by the Alta ofMedicine and an Endocrine Society practice guideline as alevel of serum 25-OH vitamin D less than 20 ng/mL (1,2).The Endocrine Society went on to further define vitamin Dinsufficiency as a level between 21 and 29 ng/mL (2).1. IOM (Alta of Medicine). 2010. Dietary reference intakes for calcium and D. [place]: The National Academies Press.2. Kelly MF, Rocky [place], Padmini CHICAS, et al. Evaluation, treatment, and prevention of vitamin D deficiency: an Endocrine Society clinical practice guideline. JCEM. 2010; 96(7):1911-30. :34 Folate (73712) Comments: PATIENT NOT FASTINGPERFORMED BY: CB [facility] Ggaqdp4286 Lowery RoadDublin [place] [id number] Folate (Folic Acid), Serum 14.3 ng/mL (Normal) Comments: A serum folate concentration of less than 3.1 ng/mL isconsidered to represent clinical deficiency. :34 VITAMIN B-12 (CYANOCOBALAMIN) Comments: PATIENT NOT FASTINGPERFORMED BY: CB [facility] Tmqjmf2566 Lowery RoadDublin [place] [id number] (16721) Vitamin B12 734 pg/mL (Normal) Range: 232-1245 :34 SED RATE ERYTHROCYTE (29992) Comments: PATIENT NOT FASTINGPERFORMED BY: CB [facility] Etrkyv9342 Lowery RoadDublin [place] [id number] Sedimentation Rate-Westergren 2 mm/h (Normal) Range: 0-32 :34 RHEUMATOID FACTOR-QUANT (15330) Comments: PATIENT NOT FASTINGPERFORMED BY: CB [facility] Jevtny5655 [address]y RoadDublin [place] [id number] RA Latex Turbid. <10.0 {IU/mL} (Normal) Range: 0.0-13.9 :34 METABOLIC PANEL, COMPREHENSIVE Comments: PATIENT NOT FASTINGPERFORMED BY: CB [facility] Tgtpuv6407 Lowery RoadDublin [place] [id number] (47761) ALT (SGPT) 11 [iU]/L (Normal) Range: 0-32 [...] Glucose, Serum 92 mg/dL (Normal) Range: 65-99 37-Whq-245597:34 C-REACTIVE PROTEIN (76701) Comments: PATIENT NOT FASTINGPERFORMED BY: [facility]HutOverlook Medical CenterNctify8116 [facility] [id number] C-Reactive Protein, Quant <0.3 mg/L (Normal) Range: 0.0-4.9 15-Apv-780751:34 CBC (AUTO) (58951) Comments: PATIENT NOT FASTINGPERFORMED BY: [facility] PFCoOverlook Medical CenterOjhnyu0441 [facility] [id number] Platelets 308 {x10E3/uL} (Normal) Range: 150-379 RDW 13.8 % (Normal) Range: 12.3-15.4 MCHC 34.8 g/dL (Normal) Range: 31.5-35.7 MCH 29.0 pg (Normal) Range: 26.6-33.0 MCV 84 fL (Normal) Range: 79-97 Hematocrit 41.4 % (Normal) Range: 34.0-46.6 Hemoglobin 14.4 g/dL (Normal) Range: 11.1-15.9 RBC 4.96 {x10E6/uL} (Normal) Range: 3.77-5.28 WBC 8.6 {x10E3/uL} (Normal) Range: 3.4-10.8 33-Gsc-959602:34 ALEC (ANTINUCLEAR ANTIBODY) Comments: PATIENT NOT FASTINGPERFORMED BY: [facility] Hybgxg9709 [address] [facility] [id number] (38307) ALEC Direct Negative (Normal) 06-Ssc-558970:51 NuSwab Vaginitis Plus Comments: PATIENT NOT FASTINGPERFORMED BY: [facility] Etacfvafbj2242 [facility] [id number] Information: [id number] (trich/BV/GC/tavo W/O Herpes) (43658) Neisseria gonorrhoeae, Negative (Normal) CRUZ Chlamydia trachomatis, [...] was developed and its performance characteristics determinedby profectus health research. It has not been cleared or appro chapis by the Food and DrugAdministration. The FDA has determined that such clearance orapproval is not necessary. BVAB 2 Low - 0 {Score} (Normal) Atopobium vaginae Low - 0 {Score} (Normal) 1-Lrq-976025: Mass (define area) See Note (Normal) Comments: [facility] [address] [place], [address] 24 Comments: Patient: KELIN FLORES : 1990 (24/F) Acct Num: [id number] Phys: Jamila CAM,[place] Unit Num: [id number] Loc: [facility] Specimen: [id number] Received: 01/21/15 - 1028 Spec Ty pe: [...] one block. / AM: 01/21/15 TC:2 CPT: 70342 x2, 32912 x2, 67478 x2 HEADER OPERATION: Incisional biopsy neck mass [...] 01/22/15 <signature on file> 21-Jan-20158:00 ,Urine Comments: [facility] [address] [place], [address] HCGUQUAL Negative {Negative} (Normal) Comments: Very dilute urine specimens, as indicated by a low specificgravity, may not contain enrollment representative levels of hCG.If is still suspected, a first morning urinespecimen should be collected 48 hours later and tested. 59-Moj-95173:37 CBC, Platelets & Auto Diff Comments: PATIENT NOT FASTINGPERFORMED BY: [facility] Ierexd4888 [facility] [id number] Information: [id number] (93245) Immature Grans (Abs) 0.0 {x10E3/uL} (Normal) Range: [...] Panel, Comprehensive Comments: PATIENT NOT FASTINGPERFORMED BY: [facility]avenHutOverlook Medical CenterEmbrez1616 [facility] [id number] (07987) ALT (SGPT) 13 [iU]/L (Normal) Range: 0-32 [...] mg/dL (Normal) Range: 65-99 :37 Anti-TPO Antibody (59790) Comments: PATIENT NOT FASTINGPERFORMED BY: LabCoOverlook Medical CenterVvzchr5790 [facility] [id number] Thyroid Peroxidase (TPO) Ab 7 {IU/mL} (Normal) Range: 0-34 :37 T4, FREE (THYROXINE) (01506) Comments: PATIENT NOT FASTINGPERFORMED BY: RONAK LabFormer[facility]6[address] [facility] [id number] T4,Free(Direct) 1.36 ng/dL (Normal) Range: 0.82-1.77 :37 T3, FREE (TRIDOTHYRONINE) (95117) Comments: PATIENT NOT FASTINGPERFORMED BY: [facility]6[address] [facility] [id number] Triiodothyronine,Free,Serum 3.5 pg/mL (Normal) Range: 2.0-4.4 :37 TSH (20552) Comments: PATIENT NOT FASTINGPERFORMED BY: [facility]6[address] [facility] [id number]; apt. 12-10-14 TSH 1.210 {uIU/mL} (Normal) Range: 0.450-4.500 Urine Drug Screen positive amphetamines :30 (Office - Urine (Normal) Drug Screen 6 Panel) (81660) Glucose, Serum 72 mg/dL (Normal) Comments: PATIENT WAS FASTINGPERFORMED BY: [facility]6[address] [facility] [id number] 1:30 Range: 65-99 :30 Lipid Panel With LDL/HDL Comments: PATIENT WAS FASTINGPERFORMED BY: [facility]6[address] [facility] [id number] Information: [id number] Ratio LDL/HDL Ratio 1.7 {ratio_units} (Normal) Range: [...] 141 mg/dL (Normal) Range: 100-189 :39 LIPASE (78981) Comments: PATIENT NOT FASTINGPERFORMED BY: [facility] Pomhaq1860 [address] RoadDublin [place] [id number] Lipase, Serum 20 U/L (Normal) Range: 0-59 :39 AMYLASE (23551) Comments: PATIENT NOT FASTINGPERFORMED BY: [facility] Aqtyhr2584 [address] RoadDublin [place] [id number] Amylase, Serum 33 U/L (Normal) Range: 31-124 :39 HCG Qualitative, Serum (36438) Comments: PATIENT NOT FASTINGPERFORMED BY: [facility] Kwugxn[address] [facility] [place] [id number] hCG,Beta Subunit,Qual,Serum Negative m[iU]/mL (Normal) :39 CALCIFIDIOL (89493) VIT D 25 Comments: PATIENT NOT FASTINGPERFORMED BY: [facility] Kqikmm[address] [facility] [place] [id number] Vitamin D, 25-Hydroxy 35.9 ng/mL (Normal) Range: 30.0-100.0 Comments: Vitamin D deficiency has been defined by the Alta ofMedicine and an Endocrine Society practice guideline as alevel of serum 25-OH vitamin D less than 20 ng/mL (1,2).The Endocrine Society went on to further define vitamin Dinsufficiency as a level between 21 and 29 ng/mL (2).1. IOM ([place]ta of Medicine). 2010. Dietary reference intakes for calcium and D. [place]: The National Academies Press.2. Kelly MF, Rocky [place], Shayan-Ventura CHICAS, et al. Evaluation, treatment, and prevention of vitamin D deficiency: an Endocrine Society clinical practice guideline. JCEM. 2010; 96(7):1911-30. :39 Folate (62007) Comments: PATIENT NOT FASTINGPERFORMED BY: [facility] Oagxlu[address] [facility] CenterD[facility] [place] [id number] Folate (Folic Acid), Serum 12.6 ng/mL (Normal) Comments: A serum folate concentration of less than 3.1 ng/mL isconsidered to represent clinical deficiency. :39 VITAMIN B-12 (CYANOCOBALAMIN) Comments: PATIENT NOT FASTINGPERFORMED BY: LOCK8 Iuivh[address]35 [facility] [id number] (83628) Vitamin B12 703 pg/mL (Normal) Range: 211-946 :39 TSH (17360) Comments: PATIENT NOT FASTINGPERFORMED BY: [facility] Umbpkf5877 [facility] [id number] TSH 0.736 {uIU/mL} (Normal) Range: 0.450-4.500 :39 SED RATE ERYTHROCYTE (87122) Comments: PATIENT NOT FASTINGPERFORMED BY: LOCK8 [address] [facility] [id number] Sedimentation Rate-Westergren 2 mm/h (Normal) Range: 0-32 :39 METABOLIC PANEL, Comments: PATIENT NOT FASTINGPERFORMED BY: [facility] Zenrro5246 [facility] [id number] Information: [id number] COMPREHENSIVE (42261) ALT (SGPT) 13 [iU]/L (Normal) Range: 0-32 [...] mg/dL (Normal) Range: 65-99 :39 CBC (AUTO) (86619) Comments: PATIENT NOT FASTINGPERFORMED BY: [employer] Iumnho1096 [facility] [id number] Platelets 348 {x10E3/uL} (Normal) Range: 150-379 RDW 13.6 % (Normal) Range: 12.3-15.4 MCHC 34.4 g/dL (Normal) Range: 31.5-35.7 MCH 29.0 pg (Normal) Range: 26.6-33.0 MCV 84 fL (Normal) Range: 79-97 Hematocrit 41.3 % (Normal) Range: 34.0-46.6 Hemoglobin 14.2 g/dL (Normal) Range: 11.1-15.9 RBC 4.90 {x10E6/uL} (Normal) Range: 3.77-5.28 WBC 10.5 {x10E3/uL} (Normal) Range: 3.4-10.8 :39 ALEC (ANTINUCLEAR ANTIBODY) Comments: PATIENT NOT FASTINGPERFORMED BY: [employer] Rhjwcx4382 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 Engineer Letter Indication: Abdominal pain Planned Observations Drug Screen (7drug + Alcohol) (06932)Indication: ADD (attention deficit disorder) On: 75-Yek-994725:51 Request Glucose (64332)Indication: Encounter for pre-employment examination On: 85-Gmb-519069:35 Request Lipid Panel (26679)Indication: Encounter for pre-employment examination On: 47-Zrl-372291:35 Request Urine Drug Screen (Office - Urine Drug Screen 9 Panel) (85672)Indication: ADD (attention deficit disorder) On: 56-Vuj-132124:31 Request GLUCOSE TOLERANCE TEST (GTT) (35090)Indication: Fatigue On: 46-Gwa-390699:23 Request Comments: 5 hr test CALCIUM SERUM (04305)Indication: Hypercalcemia On: 17-Jan-20149:23 Request Folate (01448)Indication: Fatigue On: 14-Jan-20149:26 Request Planned Encounters Medical; [...] Intent (J1885)By: Mala Alfredo CNP Comments: lot 76120ef2.1.1630mgleft gmIMas, HAND COMPOSITOR Toradol Injection, 30 mg On: 17-Jan-2014 Intent (J1885)By: Cecilia Dhaliwal DO Comments: Lot:29-656-AWScr:10/16/2015Dose:30mgRoute:30mg Site:[facility]le [facility] [...]
--- OUTSIDE RECORDS SUMMARY | 2018-05-09 16:56 | XMS RPT_ITS | Continuity of Care Document ---
:1990 Author Organization [facility] Address [facility] [place] [address] Phone Care Team Providers Name Role Phone Cecilia Dhaliwal DO Unavailable Sha CAM, Teri Pyle Unavailable Nubia CAM, Corwin Unavailable Elida CAM, Yonathan Crenshaw Unavailable JACINTO Degroot Unavailable Unavailable Long FACILITIES MAINTENANCE MANAGER, Sirena Faustin Unavailable Unavailable Unavailable Unavailable Problems [...] Multiple thyroid nodules (E04.2, 241.1) Comments: RT 3q1t6qn and left 5w4e8vc with normal regional lymph nodes follow 6 [...] WITH Contrast Result: Comments: See Note; NOTES: [facility] Imaging Services [address] [place] [address] Soft Tissue Neck WITH Contrast MR#: [id number] Acct: [id number] Name: KELIN MACIEL Cathleen p #: [id number] : 1990 F 27 From: Dante Myers MD PCP: Cecilia Dhaliwal DO Status: REG CLI Study: Soft Tissue Neck WITH Contrast Date of Exam: 10/20/17 Exam# [id number] Ordering Dr: Ryan Marino MD STUDY: CT [...] soft tissues are unremarkable. 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 Phlegmonou s features without organized abscess. Electronically Signed: Dante Myers, at 10:43 EDT Tel , Service support , CC: Otoniel lagos MD; Cecilia Dhaliwal DO Appraisal Coordinator: Signed 05-Apr-2015 Emergency Department Summary Result: Comments: See Note; NOTES: [facility] Medical Records Department [address] [place] [address] Emergency Department Summary MR#: [id number] Acct: [id number] Name: KELIN FLORES Rep #: [id number] : 1990 24 From: Kimi Mario MD PCP: Cecilia Dhaliwal DO Status: [facility] DATE OF SERVICE: 04/05/2015 CHIEF COMPLAINT: [...] splint. She is referred to [facility] for outpatient followup and she was given a note for work restricti ons. DISPOSITION: Discharge. DIAGNOSIS: Left ring finger contusion. Kimi Mario MD T: NTS JOB: [id number] 04/05/15441 <Electronically signed by Kimi Mario MD> Date __ Kimi Mario MD Cosigner Signature (If Indicated): Date CC: Cecilia Dhaliwal DO Date Dictated : 04/05/15221 Date Transcribed: 04/05/15221 Appraisal Coordinator: Signed 05-Apr-2015 Discharge Instruction Result: Comments: See Note; NOTES: [facility] Medical Records Department [address] [place] [address] Discharge Instruction 04/05/15215 MR#: [id number] Acct: [id number] Name: KELIN FLORES Rep #: [id number] : 1990 24 From: Kimi Mario MD [...] problems, contact your doctor. Call [facility] ([phone]) or report to [facility] Emergency Room. Call 911 if necessary. 04/05/15220 <Electronically signed by Kimi Mario MD> Date Kimi Mario MD Cosign er Signature (If Indicated): Date CC: Cecilia Dhaliwal DO 05-Apr-2015 Hand Min 3 Views Result: Comments: See Note; NOTES: [facility] Imaging Services [address] [place] [address] Verdana 4d Hand Min 3 Views MR#: [id number] Acct: [id number] Name: Maine FLORES Rep #: [id number] : 1990 F 24 From: Jadon Bustamante PCP: Cecilia Dhaliwal DO Status: REG ER Study: Hand Min 3 Views Date of Exam: 04/05/15 Exam# [id number] Ordering Dr: Kimi Mario MD [facility] DY: X-RAY - LEFT HAND REASON [...] DO at 2:17 EST , Service support [phone], RAD/Hand Min 3 Views IMPRESSION: Normal x-ray examinat ion of the hand. Electronically Signed: Jadon Bustamante DO at 2:17 EST , Service support [phone], CC: Kimi Mario MD; Cecilia Dhaliwal DO Appraisal Coordinator: Signed 06-Feb-2015 Operative Report Result: Comments: See Note; NOTES: [facility] Medical Records Department [address] [place] [address] Operative Report MR#: [id number] Acct: [id number] Name: DAVID FLORES Rep #: [id number] : 1990 From: Ryan Mraino MD PCP: Cecilia Dhaliwal DO Status: [facility] DATE OF SERVICE: 01/21/2015 DATE OF [...] condition. Otoniel Marino MD T: NTS JOB: [id number] 02/06/15 0905 <Electronically signed by Ryan Marino MD> Date ___ Ryan Marino MD Cosigner Signature (If Indicated): Date CC: Otoniel Marino MD; Cecilia Dhaliwal DO Date Dictated: 01/21/15 1225 Date Transcribed: 01/21/151224 Appraisal Coordinator: Signed 21-Jan-2015 Discharge Instruction Result: Comments: See Note; NOTES: [facility] Medical Records Department [address] [place] [address] Instructions for Home/Discharge Instructions 01/21/15 1141 MR#: [id number] Acct: [id number] Name: KELIN FLORES Rep #: [id number] : 1990 From: Ryan Marino MD PCP: [...] W/WO Contrast Result: Comments: See Note; NOTES: [facility] Imaging Services [address] [place] [address] Verdana 4d Orbit Face Neck W/WO Contrast MR#: [id number] Acct: [id number] [facility] e: KELIN FLORES Rep #: [id number] : 1990 F 24 From: Irina Belcher PCP: Cecilia Dhaliwal DO Status: REG CLI Study: Orbit Face Neck W/WO Contrast Date of Exam: 12/31/14 Exam# [id number] [facility] Dr: Ryan Marino MD STUDY: MRI SOFT [...] CT. Normal bilateral parotid glands. Normal bilateral twill cutter spaces. Normal bilateral parapharynge al spaces. Normal [...] at 10:21 EST Tel , Service support [phone], N.B. : The above information has been verbally conveyed by Irina Belcher MD to Dr. Delacruz, covering physician, on 12/31/2014 10:13:34 (ET). CC: Otoniel Marino MD; Cecilia Dhaliwal DO Appraisal Coordinator: Signed 10-Dec-2014 Soft Tissue Neck WITH Contrast Result: Comments: See Note; NOTES: [facility] Imaging Services [address] [place] [address] Verdana 4d Soft Tissue Neck WITH Contrast MR#: [id number] Acct: [id number] Na me: KELIN FLORES Rep #: [id number] : 1990 F 24 From: Basilio Agudelo MD PCP: Cecilia Dhaliwal DO Status: REG CLI Study: Soft Tissue Neck WITH Contrast Date of Exam: 12/10/14 Exam# [id number] [facility] Dr: Mala Alfredo STUDY: CT SOFT [...] Both parotid glands are normal. Normal bilateral twill cutter spaces. Normal bilatera l parapharyngeal spaces. Normal [...] MD at 11:54 EDT , Service support [phone], CC: Mala Alfredo; Cecilia Dhaliwal DO Appraisal Coordinator: Signed 05-Dec-2014 Thyroid Result: Comments: See Note; NOTES: [facility] Imaging Services [address] [place] [address] Verdana 4d Thyroid MR#: [id number] Acct: [id number] Name: KELIN FLORES Rep #: [id number] : 1990 F 24 From: Joby Hurd MD PCP: Cecilia Dhaliwal DO Status: REG CLI Study: Thyroid Date of Exam: 12/05/14 Exam# [id number] Ordering Dr: Mala Alfredo STUDY: THYROID UL [...] at 9:37 EDT Tel , Service support [phone], CC: Mala Alfredo; Cecilia Dhaliwal DO Appraisal Coordinator: Signed 15-Jan-2014 Gallbladder Result: Comments: See Note; NOTES: [facility] Imaging Services [address] [place] [address] Ultrasound Report MR#: [id number] Acct: [id number] Name: KELIN FLORES Rep #: [id number] : 1990 F 23 From: Heriberto Falk MD PCP: Cecilia Dhaliwal DO Status: REG CLI Study: Gallbladder Date of Exam: 01/15/14 Exam# [id number] Ordering Dr: Cecilia Dhaliwal DO STUDY: ABDOMINA [...] MD at 11:12 EST , Service support [phone], CC: Cecilia Dhaliwal DO Appraisal Coordinator: Signed Social History Name Dates Details Alcohol Use: Occasional alcohol use. 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 [...] kg/m2 Body Surface Area Calculated 1.86 m2 08-Fkl-809818:14 Pulse 82 /min Comments: Pattern: Regular Respiration [...] kg/m2 Body Surface Area Calculated 1.86 m2 06-Ylf-284038:48 Temperature 100.7 f Comments: Method: Oral Pulse [...] 1.86 m2 Results Date Description Value Details 55-Lud-02262:00 ASP DONE IN LAB See Note Comments: [facility] [address] [place], [place], [address] (Normal) Comments: Patient: KELIN MACIEL : 1990 (27/F) Acct Num: [id number] Phys: Jamila CAM,Otoniel Unit Num: [id number] Loc: LAB Specimen: [id number] Received: 10/13/17 - [...] for cytologystudy. / AM:rehan 10/13/17 TC:5 CPT: 08075, 65579, 30746 CYTOLOGY STUDY Slides are reviewed. DIAGNOSIS CYTOLOGY [...] 8.40 U/mL Comments: PATIENT NOT FASTINGPERFORMED BY: [facility] Obnhyh7121 [facility] [id number] 4 IgG (Abnormal) Range: 0.00-0.59 Comments: Negative <0.60 Equivocal 0.60 - 0.69 Positive >0.69 :3 Cytomegalovirus (CMV) Ab, <30.0 AU/mL Comments: PATIENT NOT FASTINGPERFORMED BY: [facility] Nuepgi5475 [facility] [id number] 4 IgM (Normal) Range: 0.0-29.9 Comments: Negative <30.0 Equivocal 30.0 - 34.9 Positive >34.9 A positive result is generally indicative of acute infection, reactivation or persistent IgM production. :34 EBV Acute Infection Antibodies Comments: PATIENT NOT FASTINGPERFORMED BY: [facility] Wmiwdv7885 [facility] [id number] Interpretation: SPRCS (Normal) Comments: EBV Interpretation Chart . Interpretation EBV-IgM EA(D)-IgG VCA-IgG EBNA-IgG . EBV Seronegative - - - - Early Phase + - - - Acute Primary + +or- + - Infection Convalescence/Past - +or- + + Infection Reactivated +or- + + + Infection + Antibody Present - Antibody Absent :34 Specimen Status Report Comments: PATIENT NOT FASTINGPERFORMED BY: E[facility]QUOUS Dxyzmd6033 [facility] [id number] 36-Xvx-513781:3 Written Authorization WAR (Normal) Comments: PATIENT NOT FASTINGPERFORMED BY: [facility] Vqglai9467 [facility] [id number] 4 Comments: Written Authorization Received.Authorization received from BEATRIZ PAEZ LPN [id number] by Letha Aguilar :34 Anti-TPO Antibody (31939) Comments: PATIENT NOT FASTINGPERFORMED BY: [facility] Dsiteg5737 [facility] [id number] Liver-Kidney Microsomal Ab <1.0 {Units} (Normal) Range: 0.0-20.0 Comments: Negative 0.0 - 20.0 Equivocal 20.1 - 24.9 Positive >24.9 . LKM type 1 antibodies are detected in patients with autoimmune hepatitis type 2 and in up to 8% of patients with chronic HCV infection. :34 TSH (95082) Comments: PATIENT NOT FASTINGPERFORMED BY: [facility] Wdlhdf7541 [address] Well[employer] HoldingsDublin [place] [id number] TSH 0.702 {uIU/mL} (Normal) Range: 0.450-4.500 :34 T4, FREE (THYROXINE) (91036) Comments: PATIENT NOT FASTINGPERFORMED BY: [facility] Mycrno1040 [address] [employer] Software[address] [id number] T4,Free(Direct) 1.36 ng/dL (Normal) Range: 0.82-1.77 :34 T3, FREE (TRIDOTHYRONINE) (59139) Comments: PATIENT NOT FASTINGPERFORMED BY: [facility] Gumbqe2655 [address] [facility] [place] [id number] Triiodothyronine,Free,Serum 2.9 pg/mL (Normal) Range: 2.0-4.4 :23 HgA1C , Office (67932) HgA1C , Office 4.9 % (Normal) Range: 4.6 - 7.1 :34 CALCIFIDIOL (42740) VIT D 25 Comments: PATIENT NOT FASTINGPERFORMED BY: [facility] Xwntaj1420 [address] [facility] [place] [id number] Vitamin D, 25-Hydroxy 16.0 ng/mL (Abnormal) Range: 30.0-100.0 Comments: Vitamin D deficiency has been defined by the Moro ofMedicine and an Endocrine Society practice guideline as alevel of serum 25-OH vitamin D less than 20 ng/mL (1,2).The Endocrine Society went on to further define vitamin Dinsufficiency as a level between 21 and 29 ng/mL (2).1. IOM (Moro of Medicine). 2010. Dietary reference intakes for calcium and D. [place]: The National Academies Press.2. Kelly MF, Rocky NC, Padmini CHICAS, et al. Evaluation, treatment, and prevention of vitamin D deficiency: an Endocrine Society clinical practice guideline. JCEM. 2010; 96(7):1911-30. :34 Folate (84475) Comments: PATIENT NOT FASTINGPERFORMED BY: CB [facility] Emxhsl6073 Lowery RoadDublin [place] [id number] Folate (Folic Acid), Serum 14.3 ng/mL (Normal) Comments: A serum folate concentration of less than 3.1 ng/mL isconsidered to represent clinical deficiency. :34 VITAMIN B-12 (CYANOCOBALAMIN) Comments: PATIENT NOT FASTINGPERFORMED BY: CB [facility] Ahohsq5846 Lowery RoadDublin [place] [id number] (51245) Vitamin B12 734 pg/mL (Normal) Range: 232-1245 :34 SED RATE ERYTHROCYTE (30299) Comments: PATIENT NOT FASTINGPERFORMED BY: CB [facility] Rtztkk9215 [address]y RoadDublin [place] [id number] Sedimentation Rate-Westergren 2 mm/h (Normal) Range: 0-32 :34 RHEUMATOID FACTOR-QUANT (39114) Comments: PATIENT NOT FASTINGPERFORMED BY: CB [facility] Tnemkb0371 Lowery RoadDublin [place] [id number] RA Latex Turbid. <10.0 {IU/mL} (Normal) Range: 0.0-13.9 :34 METABOLIC PANEL, COMPREHENSIVE Comments: PATIENT NOT FASTINGPERFORMED BY: CB [facility] Ccxpeq1831 Lowery RoadDublin [place] [id number] (31233) ALT (SGPT) 11 [iU]/L (Normal) Range: 0-32 [...] Glucose, Serum 92 mg/dL (Normal) Range: 65-99 34-Pxs-214764:34 C-REACTIVE PROTEIN (01082) Comments: PATIENT NOT FASTINGPERFORMED BY: EBIQUOUSHackettstown Medical CenterDsplbo0997 [facility] [id number] C-Reactive Protein, Quant <0.3 mg/L (Normal) Range: 0.0-4.9 81-Fbh-703254:34 CBC (AUTO) (15843) Comments: PATIENT NOT FASTINGPERFORMED BY: CrowdPlatCoHackettstown Medical CenterKdgkrt7771 [facility] [id number] Platelets 308 {x10E3/uL} (Normal) Range: 150-379 RDW 13.8 % (Normal) Range: 12.3-15.4 MCHC 34.8 g/dL (Normal) Range: 31.5-35.7 MCH 29.0 pg (Normal) Range: 26.6-33.0 MCV 84 fL (Normal) Range: 79-97 Hematocrit 41.4 % (Normal) Range: 34.0-46.6 Hemoglobin 14.4 g/dL (Normal) Range: 11.1-15.9 RBC 4.96 {x10E6/uL} (Normal) Range: 3.77-5.28 WBC 8.6 {x10E3/uL} (Normal) Range: 3.4-10.8 26-Mij-893467:34 ALEC (ANTINUCLEAR ANTIBODY) Comments: PATIENT NOT FASTINGPERFORMED BY: [facility] Pcfcdg9050 [address] [facility] [id number] (78272) ALEC Direct Negative (Normal) 24-Pyx-738916:51 NuSwab Vaginitis Plus Comments: PATIENT NOT FASTINGPERFORMED BY: [facility] Qupmytnakg5206 [facility] [id number] Information: [id number] (trich/BV/GC/tavo W/O Herpes) (30338) Neisseria gonorrhoeae, Negative (Normal) CRUZ Chlamydia trachomatis, [...] was developed and its performance characteristics determinedby [employer]. It has not been cleared or appro chapis by the Food and DrugAdministration. The FDA has determined that such clearance orapproval is not necessary. BVAB 2 Low - 0 {Score} (Normal) Atopobium vaginae Low - 0 {Score} (Normal) 8-Dzn-271484: Mass (define area) See Note (Normal) Comments: [facility] [address] [place], [address] 24 Comments: Patient: KELIN FLORES : 1990 (24/F) Acct Num: [id number] Phys: Jamila CAM,[place] Unit Num: [id number] Loc: [facility] Specimen: [id number] Received: 01/21/15 - 1028 Spec Ty pe: [...] one block. / AM: 01/21/15 TC:2 CPT: 08592 x2, 78394 x2, 13231 x2 HEADER OPERATION: Incisional biopsy neck mass [...] 01/22/15 <signature on file> 21-Jan-20158:00 ,Urine Comments: [facility] [address] [place], [address] HCGUQUAL Negative {Negative} (Normal) Comments: Very dilute urine specimens, as indicated by a low specificgravity, may not contain development representative levels of hCG.If is still suspected, a first morning urinespecimen should be collected 48 hours later and tested. 64-Dhk-74562:37 CBC, Platelets & Auto Diff Comments: PATIENT NOT FASTINGPERFORMED BY: [facility] Psojgg5331 [facility] [id number] Information: [id number] (55268) Immature Grans (Abs) 0.0 {x10E3/uL} (Normal) Range: [...] Panel, Comprehensive Comments: PATIENT NOT FASTINGPERFORMED BY: EBIQUOUSHackettstown Medical CenterDnmvpy3280 [facility] [id number] (25487) ALT (SGPT) 13 [iU]/L (Normal) Range: 0-32 [...] mg/dL (Normal) Range: 65-99 :37 Anti-TPO Antibody (05816) Comments: PATIENT NOT FASTINGPERFORMED BY: LabCoHackettstown Medical CenterGloxgt3117 [facility] [id number] Thyroid Peroxidase (TPO) Ab 7 {IU/mL} (Normal) Range: 0-34 :37 T4, FREE (THYROXINE) (34450) Comments: PATIENT NOT FASTINGPERFORMED BY: RONAK [facility]6370 [facility] [id number] T4,Free(Direct) 1.36 ng/dL (Normal) Range: 0.82-1.77 :37 T3, FREE (TRIDOTHYRONINE) (52975) Comments: PATIENT NOT FASTINGPERFORMED BY: [facility]6370 [facility] [id number] Triiodothyronine,Free,Serum 3.5 pg/mL (Normal) Range: 2.0-4.4 :37 TSH (58709) Comments: PATIENT NOT FASTINGPERFORMED BY: [facility]6370 [facility] [id number]; apt. 12-[address]-14 TSH 1.210 {uIU/mL} (Normal) Range: 0.450-4.500 Urine Drug Screen positive amphetamines :30 (Office - Urine (Normal) Drug Screen 6 Panel) (25287) Glucose, Serum 72 mg/dL (Normal) Comments: PATIENT WAS FASTINGPERFORMED BY: [facility]6370 [facility] [id number] 1:30 Range: 65-99 :30 Lipid Panel With LDL/HDL Comments: PATIENT WAS FASTINGPERFORMED BY: [facility]6370 [facility] [id number] Information: [id number] Ratio LDL/HDL Ratio 1.7 {ratio_units} (Normal) Range: [...] 141 mg/dL (Normal) Range: 100-189 :39 LIPASE (07612) Comments: PATIENT NOT FASTINGPERFORMED BY: [facility] Yiwifu6236 [address] RoadDublin [place] [id number] Lipase, Serum 20 U/L (Normal) Range: 0-59 :39 AMYLASE (21483) Comments: PATIENT NOT FASTINGPERFORMED BY: [facility] Igmiqh5471 [address] RoadDublin [place] [id number] Amylase, Serum 33 U/L (Normal) Range: 31-124 :39 HCG Qualitative, Serum (21353) Comments: PATIENT NOT FASTINGPERFORMED BY: [facility] Wjyctc0732 [address] [facility] [place] [id number] hCG,Beta Subunit,Qual,Serum Negative m[iU]/mL (Normal) :39 CALCIFIDIOL (82527) VIT D 25 Comments: PATIENT NOT FASTINGPERFORMED BY: [facility] Wugkdg0329 [address] [facility] [place] [id number] Vitamin D, 25-Hydroxy 35.9 ng/mL (Normal) Range: 30.0-100.0 Comments: Vitamin D deficiency has been defined by the Moro ofMedicine and an Endocrine Society practice guideline as alevel of serum 25-OH vitamin D less than 20 ng/mL (1,2).The Endocrine Society went on to further define vitamin Dinsufficiency as a level between 21 and 29 ng/mL (2).1. IOM (Moro of Medicine). 2010. Dietary reference intakes for calcium and D. [place]: The National Academies Press.2. Kelly MF, Rocky [place], Shayan-Ventura CHICAS, et al. Evaluation, treatment, and prevention of vitamin D deficiency: an Endocrine Society clinical practice guideline. JCEM. 2010; 96(7):1911-30. :39 Folate (44739) Comments: PATIENT NOT FASTINGPERFORMED BY: [facility] Yxhgym9904 [address] [facility] HospitalD[facility] [place] [id number] Folate (Folic Acid), Serum 12.6 ng/mL (Normal) Comments: A serum folate concentration of less than 3.1 ng/mL isconsidered to represent clinical deficiency. :39 VITAMIN B-12 (CYANOCOBALAMIN) Comments: PATIENT NOT FASTINGPERFORMED BY: [facility] Fjoqma5250 [facility] [id number] (30086) Vitamin B12 703 pg/mL (Normal) Range: 211-946 :39 TSH (31705) Comments: PATIENT NOT FASTINGPERFORMED BY: [employer] [facility] Efrqwi2133 [facility] [id number] TSH 0.736 {uIU/mL} (Normal) Range: 0.450-4.500 :39 SED RATE ERYTHROCYTE (09996) Comments: PATIENT NOT FASTINGPERFORMED BY: [facility] Aruxwa3129 [facility] [id number] Sedimentation Rate-Westergren 2 mm/h (Normal) Range: 0-32 :39 METABOLIC PANEL, Comments: PATIENT NOT FASTINGPERFORMED BY: [facility] Tuqoqb6404 [facility] [id number] Information: [id number] COMPREHENSIVE (01982) ALT (SGPT) 13 [iU]/L (Normal) Range: 0-32 [...] mg/dL (Normal) Range: 65-99 :39 CBC (AUTO) (32312) Comments: PATIENT NOT FASTINGPERFORMED BY: [facility] Trlqen4877 [facility] [id number] Platelets 348 {x10E3/uL} (Normal) Range: 150-379 RDW 13.6 % (Normal) Range: 12.3-15.4 MCHC 34.4 g/dL (Normal) Range: 31.5-35.7 MCH 29.0 pg (Normal) Range: 26.6-33.0 MCV 84 fL (Normal) Range: 79-97 Hematocrit 41.3 % (Normal) Range: 34.0-46.6 Hemoglobin 14.2 g/dL (Normal) Range: 11.1-15.9 RBC 4.90 {x10E6/uL} (Normal) Range: 3.77-5.28 WBC 10.5 {x10E3/uL} (Normal) Range: 3.4-10.8 :39 ALEC (ANTINUCLEAR ANTIBODY) Comments: PATIENT NOT FASTINGPERFORMED BY: [facility] Dynycy2440 [facility] [id number] (16668) ALEC Direct Negative (Normal) Plan of Care [...] Indication: Abdominal pain Abdominal pain : Reviewed Leadership Program Intern Letter Indication: Abdominal pain Planned Observations Drug Screen (7drug + Alcohol) (39721)Indication: ADD (attention deficit disorder) On: 08-Csv-708305:51 Request Glucose (74689)Indication: Encounter for pre-employment examination On: 14-Gxy-507495:35 Request Lipid Panel (79041)Indication: Encounter for pre-employment examination On: 12-Fgc-906320:35 Request Urine Drug Screen (Office - Urine Drug Screen 9 Panel) (61095)Indication: ADD (attention deficit disorder) On: 96-Fgc-237961:31 Request GLUCOSE TOLERANCE TEST (GTT) (12021)Indication: Fatigue On: 75-Ccg-143993:23 Request Comments: 5 hr test CALCIUM SERUM (11116)Indication: Hypercalcemia On: 17-Jan-20149:23 Request Folate (73290)Indication: Fatigue On: 14-Jan-20149:26 Request Planned Encounters Medical; [...] Intent (J1885)By: Mala Alfredo CNP Comments: lot 30878be3.1.1630mgleft gmIMas, FACILITIES MAINTENANCE MANAGER Toradol Injection, 30 mg On: 17-Jan-2014 Intent (J1885)By: Cecilia Dhaliwal DO Comments: Lot:[id number]:10/16/2015Dose:30mgRoute:30mg Site:[facility] By:EVIE signed Cecilia Dhaliwal DO Ultrasound - [...]
--- OUTSIDE RECORDS SUMMARY | 2018-05-09 16:56 | XMS RPT_ITS | Continuity of Care Document ---
:1990 Author Organization [facility] Address [facility]7 [facility] [address] [place] [address] Phone Care Team Providers Name Role Phone Cecilia Dhaliwal DO Unavailable Sha CAM, Teri Pyle Unavailable Nubia CAM, Corwin Unavailable Elida CAM, Yonathan Crenshaw Unavailable JACINTO Degroot Unavailable Unavailable Long ETHANOL OPERATIONS MANAGER, Sirena Faustin Unavailable Unavailable Unavailable Unavailable [...] Multiple thyroid nodules (E04.2, 241.1) Comments: RT 4n8e2sa and left 5w5u5yp with normal regional lymph nodes follow 6 [...] WITH Contrast Result: Comments: See Note; NOTES: [facility] Imaging Services [address] [place] [address] Soft Tissue Neck WITH Contrast MR#: [id number] Acct: [id number] Name: KELIN MACIEL Cathleen p #: [id number] : 1990 F 27 From: Dante Myers MD PCP: Cecilia Dhaliwal DO Status: REG CLI Study: Soft Tissue Neck WITH Contrast Date of Exam: 10/20/17 Exam# [id number] Ordering Dr: Ryan Marino MD STUDY: CT [...] soft tissues are unremarkable. 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 Phlegmonou s features without organized abscess. Electronically Signed: Dante Myers, at 10:43 EDT Tel , Service support , CC: Otoniel lagos MD; Cecilia Dhaliwal DO Rewinder Operator Helper: Signed 05-Apr-2015 Emergency Department Summary Result: Comments: See Note; NOTES: [facility] Medical Records Department [address] [place] [address] Emergency Department Summary MR#: [id number] Acct: [id number] Name: KELIN FLORES Rep #: [id number] : 1990 24 From: Kimi Mario MD PCP: Cecilia Dhaliwal DO Status: [facility] DATE OF SERVICE: 04/05/2015 CHIEF COMPLAINT: Finger [...] an Alumafoam splint. She is referred to [facility] for outpatient followup and she was given a note for work restricti ons. DISPOSITION: Discharge. DIAGNOSIS: Left ring finger contusion. Kimi Mario MD T: NTS JOB: [id number] 04/05/15441 <Electronically signed by Kimi Mario MD> Date __ Kimi Mario MD Cosigner Signature (If Indicated): Date CC: Cecilia Dhaliwal DO Date Dictated : 04/05/15221 Date Transcribed: 04/05/15221 Rewinder Operator Helper: Signed 05-Apr-2015 Discharge Instruction Result: Comments: See Note; NOTES: [facility] Medical Records Department [address] [place] [address] Discharge Instruction 04/05/15215 MR#: [id number] Acct: [id number] Name: KELIN FLORES Rep #: [id number] : 1990 24 From: Kimi Mario MD [...] problems, contact your doctor. Call [facility] ([phone]) or report to the [facility] Emergency Room. Call 911 if necessary. 04/05/15220 <Electronically signed by Kimi Mario MD> Date Kimi Mario MD Cosign er Signature (If Indicated): Date CC: Cecilia Dhaliwal DO 05-Apr-2015 Hand Min 3 Views Result: Comments: See Note; NOTES: [facility] Imaging Services [address] [place] [address] Verdana 4d Hand Min 3 Views MR#: [id number] Acct: [id number] Name: Maine FLORES Rep #: [id number] : 1990 F 24 From: Jadon Bustamante PCP: Cecilia Dhaliwal DO Status: REG ER Study: Hand Min 3 Views Date of Exam: 04/05/15 Exam# [id number] Ordering Dr: Kimi Mario MD [facility] DY: X-RAY - LEFT HAND REASON [...] DO at 2:17 EST , Service support [phone], RAD/Hand Min 3 Views IMPRESSION: Normal x-ray examinat ion of the hand. Electronically Signed: Jadon Bustamante DO at 2:17 EST , Service support [phone], CC: Kimi Mario MD; Cecilia Dhaliwal DO Rewinder Operator Helper: Signed 06-Feb-2015 Operative Report Result: Comments: See Note; NOTES: [facility] Medical Records Department [address] [place] [address] Operative Report MR#: [id number] Acct: [id number] Name: DAVID FLORES Rep #: [id number] : 1990 From: Ryan Marino MD PCP: Cecilia Dhaliwal DO Status: [facility] DATE OF SERVICE: 01/21/2015 DATE OF PROCEDURE: [...] condition. Otoniel Marino MD T: NTS JOB: [id number] 02/06/15 0905 <Electronically signed by Ryan Marino MD> Date ___ Ryan Marino MD Cosigner Signature (If Indicated): Date CC: Otoniel Marino MD; Cecilia Dhaliwal DO Date Dictated: 01/21/15 1225 Date Transcribed: 01/21/151224 Rewinder Operator Helper: Signed 21-Jan-2015 Discharge Instruction Result: Comments: See Note; NOTES: [facility] Medical Records Department [address] [place] [address] Instructions for Home/Discharge Instructions 01/21/15 1141 MR#: [id number] Acct: [id number] Name: KELIN FLORES Rep #: [id number] : 1990 From: Ryan Marino MD PCP: Cecilia Dhaliwal DO Status: REG DEC Discharge Diet: Light diet - advance as [...] appt 01/21/15 1143 <Electronically signed by Ryan aMrino MD> Date Ryan Marino MD CC: Cecilia Madhuri PINZON 31-Dec-2014 Orbit Face Neck W/WO Contrast Result: Comments: See Note; NOTES: [facility] Imaging Services [address] [place] [address] Verdana 4d Orbit Face Neck W/WO Contrast MR#: [id number] Acct: [id number] [facility] e: KELIN FLORES Rep #: [id number] : 1990 F 24 From: Irina Belcher PCP: Cecilia Dhaliwal DO Status: REG CLI Study: Orbit Face Neck W/WO Contrast Date of Exam: 12/31/14 Exam# [id number] [facility]: Ryan Marino MD STUDY: MRI SOFT [...] CT. Normal bilateral parotid glands. Normal bilateral environmental services attendant spaces. Normal bilateral parapharynge al spaces. Normal [...] at 10:21 EST Tel , Service support [phone], N.B. : The above information has been verbally conveyed by Irina Belcher MD to Dr. Delacruz, covering physician, on 12/31/2014 10:13:34 (ET). CC: Otoniel Marino MD; Cecilia Dhaliwal DO Rewinder Operator Helper: Signed 10-Dec-2014 Soft Tissue Neck WITH Contrast Result: Comments: See Note; NOTES: [facility] Imaging Services [address] [place] [address] Verdana 4d Soft Tissue Neck WITH Contrast MR#: [id number] Acct: [id number] Na me: KELIN FLORES Rep #: [id number] : 1990 F 24 From: Basilio Agudelo MD PCP: Cecilia Dhaliwal DO Status: REG CLI Study: Soft Tissue Neck WITH Contrast Date of Exam: 12/10/14 Exam# [id number] [facility] Dr: Mala Alfredo STUDY: CT SOFT TISSUE [...] Both parotid glands are normal. Normal bilateral environmental services attendant spaces. Normal bilatera l parapharyngeal spaces. Normal [...] MD at 11:54 EDT , Service support [phone], CC: Mala Alfredo; Cecilia Dhaliwal DO Rewinder Operator Helper: Signed 05-Dec-2014 Thyroid Result: Comments: See Note; NOTES: [facility] Imaging Services [address] [place] [address] Verdana 4d Thyroid MR#: [id number] Acct: [id number] Name: KELIN FLORES Rep #: [id number] : 1990 F 24 From: Joby Hurd MD PCP: Cecilia Dhaliwal DO Status: REG CLI Study: Thyroid Date of Exam: 12/05/14 Exam# [id number] Ordering Dr: Mala Alfredo STUDY: THYROID UL [...] at 9:37 EDT Tel , Service support [phone], CC: Mala Alfredo; Cecilia Dhaliwal DO Rewinder Operator Helper: Signed 15-Jan-2014 Gallbladder Result: Comments: See Note; NOTES: [facility] Imaging Services [address] [place] [address] Ultrasound Report MR#: [id number] Acct: [id number] Name: KELIN FLORES Rep #: [id number] : 1990 F 23 From: Heriberto Falk MD PCP: Cecilia Dhaliwal DO Status: REG CLI Study: Gallbladder Date of Exam: 01/15/14 Exam# [id number] Ordering Dr: Cecilia Dhaliwal DO STUDY: ABDOMINA [...] MD at 11:12 EST , Service support [phone], CC: Cecilia Dhalwial DO Rewinder Operator Helper: Signed Social History Name Dates Details Alcohol Use: Occasional alcohol use. 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 [...] kg/m2 Body Surface Area Calculated 1.86 m2 93-Ngj-403427:14 Pulse 82 /min Comments: Pattern: Regular Respiration [...] kg/m2 Body Surface Area Calculated 1.86 m2 00-Lyo-556818:48 Temperature 100.7 f Comments: Method: Oral Pulse [...] 1.86 m2 Results Date Description Value Details 78-Tcg-98690:00 ASP DONE IN LAB See Note Comments: [facility] [address] [place], [place], [address] (Normal) Comments: Patient: KELIN MACIEL : 1990 (27/F) Acct Num: [id number] Phys: Jamila CAM,Otoniel Unit Num: [id number] Loc: LAB Specimen: [id number] Received: 10/13/17 - [...] for cytologystudy. / AM:rehan 10/13/17 TC:5 CPT: 54307, 58413, 09026 CYTOLOGY STUDY Slides are reviewed. DIAGNOSIS CYTOLOGY [...] 8.40 U/mL Comments: PATIENT NOT FASTINGPERFORMED BY: [facility] Rgqpep1986 [facility] [id number] 4 IgG (Abnormal) Range: 0.00-0.59 Comments: Negative <0.60 Equivocal 0.60 - 0.69 Positive >0.69 :3 Cytomegalovirus (CMV) Ab, <30.0 AU/mL Comments: PATIENT NOT FASTINGPERFORMED BY: [facility] Vqgrzb2194 [facility] [id number] 4 IgM (Normal) Range: 0.0-29.9 Comments: Negative <30.0 Equivocal 30.0 - 34.9 Positive >34.9 A positive result is generally indicative of acute infection, reactivation or persistent IgM production. :34 EBV Acute Infection Antibodies Comments: PATIENT NOT FASTINGPERFORMED BY: [facility] Ficrml8361 [facility] [id number] Interpretation: SPRCS (Normal) Comments: EBV Interpretation Chart . Interpretation EBV-IgM EA(D)-IgG VCA-IgG EBNA-IgG . EBV Seronegative - - - - Early Phase + - - - Acute Primary + +or- + - Infection Convalescence/Past - +or- + + Infection Reactivated +or- + + + Infection + Antibody Present - Antibody Absent :34 Specimen Status Report Comments: PATIENT NOT FASTINGPERFORMED BY: [employer] Mfuxre8829 [facility] [id number] 13-Bbt-284091:3 Written Authorization WAR (Normal) Comments: PATIENT NOT FASTINGPERFORMED BY: [facility] Pxobig2185 [facility] [id number] 4 Comments: Written Authorization Received.Authorization received from BEATRIZ PAEZ LPN [id number] by Letha Aguilar :34 Anti-TPO Antibody (73330) Comments: PATIENT NOT FASTINGPERFORMED BY: [facility] Qhkobi0909 [facility] [id number] Liver-Kidney Microsomal Ab <1.0 {Units} (Normal) Range: 0.0-20.0 Comments: Negative 0.0 - 20.0 Equivocal 20.1 - 24.9 Positive >24.9 . LKM type 1 antibodies are detected in patients with autoimmune hepatitis type 2 and in up to 8% of patients with chronic HCV infection. :34 TSH (26936) Comments: PATIENT NOT FASTINGPERFORMED BY: [facility] Yrqubr9510 [address] [id number] TSH 0.702 {uIU/mL} (Normal) Range: 0.450-4.500 :34 T4, FREE (THYROXINE) (71950) Comments: PATIENT NOT FASTINGPERFORMED BY: [employer] Mhjpzv3445 [address] Finance[address]in [place] [id number] T4,Free(Direct) 1.36 ng/dL (Normal) Range: 0.82-1.77 :34 T3, FREE (TRIDOTHYRONINE) (24286) Comments: PATIENT NOT FASTINGPERFORMED BY: [employer] Tavesw3825 [address] [facility] [place] [id number] Triiodothyronine,Free,Serum 2.9 pg/mL (Normal) Range: 2.0-4.4 :23 HgA1C , Office (72397) HgA1C , Office 4.9 % (Normal) Range: 4.6 - 7.1 :34 CALCIFIDIOL (73097) VIT D 25 Comments: PATIENT NOT FASTINGPERFORMED BY: [facility] Clyqck8629 [address] [facility] [place] [id number] Vitamin D, 25-Hydroxy 16.0 ng/mL (Abnormal) Range: 30.0-100.0 Comments: Vitamin D deficiency has been defined by the [place] of[place]icine and an Endocrine Society practice guideline as alevel of serum 25-OH vitamin D less than 20 ng/mL (1,2).The Endocrine Society went on to further define vitamin Dinsufficiency as a level between 21 and 29 ng/mL (2).1. IOM ([place] of [employer]). 2010. Dietary reference intakes for calcium and D. [place]: The National Academies Press.2. Kelly MF, [place], Padmini CHICAS, et al. Evaluation, treatment, and prevention of vitamin D deficiency: an Endocrine Society clinical practice guideline. JCEM. 2010; 96(7):1911-30. :34 Folate (76479) Comments: PATIENT NOT FASTINGPERFORMED BY: CB [facility] Oirfci0419 [address] RoadDublin [place] [id number] Folate (Folic Acid), Serum 14.3 ng/mL (Normal) Comments: A serum folate concentration of less than 3.1 ng/mL isconsidered to represent clinical deficiency. :34 VITAMIN B-12 (CYANOCOBALAMIN) Comments: PATIENT NOT FASTINGPERFORMED BY: CB [facility] Sabntg0774 [address]y RoadDublin [place] [id number] (35262) Vitamin B12 734 pg/mL (Normal) Range: 232-1245 :34 SED RATE ERYTHROCYTE (09758) Comments: PATIENT NOT FASTINGPERFORMED BY: CB [facility] Qsycrp1345 [address] RoadDublin [place] [id number] Sedimentation Rate-Westergren 2 mm/h (Normal) Range: 0-32 :34 RHEUMATOID FACTOR-QUANT (98068) Comments: PATIENT NOT FASTINGPERFORMED BY: CB [facility] Arcjlp4460 [address] RoadDublin [place] [id number] RA Latex Turbid. <10.0 {IU/mL} (Normal) Range: 0.0-13.9 :34 METABOLIC PANEL, COMPREHENSIVE Comments: PATIENT NOT FASTINGPERFORMED BY: CB [facility] Wmawbr0146 [address] RoadDublin [place] [id number] (52914) ALT (SGPT) 11 [iU]/L (Normal) Range: 0-32 [...] Glucose, Serum 92 mg/dL (Normal) Range: 65-99 11-Uvo-213297:34 C-REACTIVE PROTEIN (46450) Comments: PATIENT NOT FASTINGPERFORMED BY: [facility]HQDeborah [facility] Lung CenterKvkazf3719 [facility] [id number] C-Reactive Protein, Quant <0.3 mg/L (Normal) Range: 0.0-4.9 11-Mag-017941:34 CBC (AUTO) (33239) Comments: PATIENT NOT FASTINGPERFORMED BY: [facility]Co[facility]or[facility] Lung CenterXdhpys6718 [facility] [id number] Platelets 308 {x10E3/uL} (Normal) Range: 150-379 RDW 13.8 % (Normal) Range: 12.3-15.4 MCHC 34.8 g/dL (Normal) Range: 31.5-35.7 MCH 29.0 pg (Normal) Range: 26.6-33.0 MCV 84 fL (Normal) Range: 79-97 Hematocrit 41.4 % (Normal) Range: 34.0-46.6 Hemoglobin 14.4 g/dL (Normal) Range: 11.1-15.9 RBC 4.96 {x10E6/uL} (Normal) Range: 3.77-5.28 WBC 8.6 {x10E3/uL} (Normal) Range: 3.4-10.8 79-Rqt-254182:34 ALEC (ANTINUCLEAR ANTIBODY) Comments: PATIENT NOT FASTINGPERFORMED BY: [facility] Xgepci7046 [address] [facility] [id number] (00334) ALEC Direct Negative (Normal) 91-Rre-266510:51 NuSwab Vaginitis Plus Comments: PATIENT NOT FASTINGPERFORMED BY: [facility] Cmruzqeowg0698 [facility] [id number] Information: [id number] (trich/BV/GC/tavo W/O Herpes) (01744) Neisseria gonorrhoeae, Negative (Normal) CRUZ Chlamydia trachomatis, [...] was developed and its performance characteristics determinedby [employer]. It has not been cleared or appro chapis by the Food and DrugAdministration. The FDA has determined that such clearance orapproval is not necessary. BVAB 2 Low - 0 {Score} (Normal) Atopobium vaginae Low - 0 {Score} (Normal) 7-Vfr-276979: Mass (define area) See Note (Normal) Comments: [facility] [address] [place], [address] 24 Comments: Patient: KELIN FLORES : 1990 (24/F) Acct Num: [id number] Phys: Jamila CAM,[place] Unit Num: [id number] Loc: [facility] Specimen: [id number] Received: 01/21/15 - 1028 Spec Ty pe: [...] one block. / AM: 01/21/15 TC:2 CPT: 61905 x2, 52050 x2, 51476 x2 HEADER OPERATION: Incisional biopsy neck mass [...] 01/22/15 <signature on file> 21-Jan-20158:00 ,Urine Comments: [facility] [address] [place], [address] HCGUQUAL Negative {Negative} (Normal) Comments: Very dilute urine specimens, as indicated by a low specificgravity, may not contain public service representative levels of hCG.If is still suspected, a first morning urinespecimen should be collected 48 hours later and tested. 19-Ydf-11322:37 CBC, Platelets & Auto Diff Comments: PATIENT NOT FASTINGPERFORMED BY: [facility] Hmtunc9325 [facility] [id number] Information: [id number] (81299) Immature Grans (Abs) 0.0 {x10E3/uL} (Normal) Range: [...] Panel, Comprehensive Comments: PATIENT NOT FASTINGPERFORMED BY: [facility]HQDeborah [facility] Lung CenterVyhrza5866 [facility] [id number] (11318) ALT (SGPT) 13 [iU]/L (Normal) Range: 0-32 [...] mg/dL (Normal) Range: 65-99 :37 Anti-TPO Antibody (76832) Comments: PATIENT NOT FASTINGPERFORMED BY: [facility] Lung CenterGhqpxi9417 [facility] [id number] Thyroid Peroxidase (TPO) Ab 7 {IU/mL} (Normal) Range: 0-34 :37 T4, FREE (THYROXINE) (91385) Comments: PATIENT NOT FASTINGPERFORMED BY: RONAK [facility]6370 [facility] [id number] T4,Free(Direct) 1.36 ng/dL (Normal) Range: 0.82-1.77 :37 T3, FREE (TRIDOTHYRONINE) (57387) Comments: PATIENT NOT FASTINGPERFORMED BY: [facility]6370 [facility] [id number] Triiodothyronine,Free,Serum 3.5 pg/mL (Normal) Range: 2.0-4.4 :37 TSH (20152) Comments: PATIENT NOT FASTINGPERFORMED BY: [facility]6370 [facility] [id number]; apt. 12-10-14 TSH 1.210 {uIU/mL} (Normal) Range: 0.450-4.500 Urine Drug Screen positive amphetamines :30 (Office - Urine (Normal) Drug Screen 6 Panel) (87470) Glucose, Serum 72 mg/dL (Normal) Comments: PATIENT WAS FASTINGPERFORMED BY: [facility]6370 [facility] [id number] 1:30 Range: 65-99 :30 Lipid Panel With LDL/HDL Comments: PATIENT WAS FASTINGPERFORMED BY: [facility]6370 [facility] [id number] Information: [id number] Ratio LDL/HDL Ratio 1.7 {ratio_units} (Normal) Range: [...] 141 mg/dL (Normal) Range: 100-189 :39 LIPASE (84408) Comments: PATIENT NOT FASTINGPERFORMED BY: [facility] Rltatq6378 [address] RoadD[address] [place] [id number] Lipase, Serum 20 U/L (Normal) Range: 0-59 :39 AMYLASE (51769) Comments: PATIENT NOT FASTINGPERFORMED BY: [facility] Asobcy4743 [address] RoadD[address] [place] [id number] Amylase, Serum 33 U/L (Normal) Range: 31-124 :39 HCG Qualitative, Serum (24665) Comments: PATIENT NOT FASTINGPERFORMED BY: [facility] Tmbcel7532 [address] [facility] [place] [id number] hCG,Beta Subunit,Qual,Serum Negative m[iU]/mL (Normal) :39 CALCIFIDIOL (87162) VIT D 25 Comments: PATIENT NOT FASTINGPERFORMED BY: [facility] Hmvrwn5784 [address] [facility] [place] [id number] Vitamin D, 25-Hydroxy 35.9 ng/mL (Normal) Range: 30.0-100.0 Comments: Vitamin D deficiency has been defined by the [place] of[place] and an Endocrine Society practice guideline as alevel of serum 25-OH vitamin D less than 20 ng/mL (1,2).The Endocrine Society went on to further define vitamin Dinsufficiency as a level between 21 and 29 ng/mL (2).1. IOM ([place] [employer]). 2010. Dietary reference intakes for calcium and D. [place]: The National Academies Press.2. Kelly MF, [place], Shayan-Ventura CHICAS, et al. Evaluation, treatment, and prevention of vitamin D deficiency: an Endocrine Society clinical practice guideline. JCEM. 2010; 96(7):1911-30. :39 Folate (86832) Comments: PATIENT NOT FASTINGPERFORMED BY: [facility] Zqxbko8512 [address] [facility] HospitalDublin [place] [id number] Folate (Folic Acid), Serum 12.6 ng/mL (Normal) Comments: A serum folate concentration of less than 3.1 ng/mL isconsidered to represent clinical deficiency. :39 VITAMIN B-12 (CYANOCOBALAMIN) Comments: PATIENT NOT FASTINGPERFORMED BY: [employer] Juzmqa6707 [facility] [id number] (42418) Vitamin B12 703 pg/mL (Normal) Range: 211-946 :39 TSH (14911) Comments: PATIENT NOT FASTINGPERFORMED BY: [facility] [facility] Npwdxe7039 [facility] [id number] TSH 0.736 {uIU/mL} (Normal) Range: 0.450-4.500 :39 SED RATE ERYTHROCYTE (27830) Comments: PATIENT NOT FASTINGPERFORMED BY: [employer] Ttepqi4494 [facility] [id number] Sedimentation Rate-Westergren 2 mm/h (Normal) Range: 0-32 :39 METABOLIC PANEL, Comments: PATIENT NOT FASTINGPERFORMED BY: [employer] Xmqomg9261 [facility] [id number] Information: [id number] COMPREHENSIVE (29256) ALT (SGPT) 13 [iU]/L (Normal) Range: 0-32 [...] mg/dL (Normal) Range: 65-99 :39 CBC (AUTO) (20043) Comments: PATIENT NOT FASTINGPERFORMED BY: [employer] Dqmvug7960 [facility] [id number] Platelets 348 {x10E3/uL} (Normal) Range: 150-379 RDW 13.6 % (Normal) Range: 12.3-15.4 MCHC 34.4 g/dL (Normal) Range: 31.5-35.7 MCH 29.0 pg (Normal) Range: 26.6-33.0 MCV 84 fL (Normal) Range: 79-97 Hematocrit 41.3 % (Normal) Range: 34.0-46.6 Hemoglobin 14.2 g/dL (Normal) Range: 11.1-15.9 RBC 4.90 {x10E6/uL} (Normal) Range: 3.77-5.28 WBC 10.5 {x10E3/uL} (Normal) Range: 3.4-10.8 :39 ALEC (ANTINUCLEAR ANTIBODY) Comments: PATIENT NOT FASTINGPERFORMED BY: [employer] Ghpjze9525 [facility] [id number] (53120) ALEC Direct Negative (Normal) Plan of Care [...] Indication: Abdominal pain Abdominal pain : Reviewed 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 Indication: Abdominal pain Planned Observations Drug Screen (7drug + Alcohol) (25337)Indication: ADD (attention deficit disorder) On: 17-Hbt-430362:51 Request Glucose (98477)Indication: Encounter for pre-employment examination On: 59-Frm-835875:35 Request Lipid Panel (04127)Indication: Encounter for pre-employment examination On: 35-Atz-883505:35 Request Urine Drug Screen (Office - Urine Drug Screen 9 Panel) (12759)Indication: ADD (attention deficit disorder) On: 12-Fjd-965451:31 Request GLUCOSE TOLERANCE TEST (GTT) (19457)Indication: Fatigue On: 04-Jyo-454477:23 Request Comments: 5 hr test CALCIUM SERUM (28413)Indication: Hypercalcemia On: 17-Jan-20149:23 Request Folate (57282)Indication: Fatigue On: 14-Jan-20149:26 Request Planned Encounters Medical; [...] Intent (J1885)By: Mala Alfredo CNP Comments: lot [id number] gmIMas, ETHANOL OPERATIONS MANAGER Toradol Injection, 30 mg On: 17-Jan-2014 Intent (J1885)By: Cecilia Dhaliwal DO Comments: Lot:[id number]:10/16/2015Dose:30mgRoute:30mg Site:[facility] By:EVIE signed Cecilia Dhaliwal DO Ultrasound - [...]
--- OUTSIDE RECORDS SUMMARY | 2018-05-09 16:57 | XMS RPT_ITS | Continuity of Care Document ---
:1990 Author Organization [facility] Address [facility] [facility] [address] [place] [address] Phone Care Team Providers Name Role Phone Cecilia Dhaliwal DO Unavailable Sha CAM, Teri Pyle Unavailable Nubia CAM, Corwin Unavailable Elida CAM, Yonathan Crenshaw Unavailable JACINTO Degroot Unavailable Unavailable Long RING STRIKER, Sirena Faustin Unavailable Unavailable Unavailable Unavailable Problems [...] Multiple thyroid nodules (E04.2, 241.1) Comments: RT 0m5s0py and left 7r0i6hs with normal regional lymph nodes follow 6 [...] Dates Details No Known Historical Medications Vyvanse 30 MG Oral Capsule 1 (one) Capsule in am for 0 days Quantity: 30 {Capsule} Refills: 0 Ordered:29-Nov-2017 Teri Dalton MD Start : 29-Nov-2017 Active Comments:DX: F98.8thirty FLUCONAZOLE, 150MG (Oral Tablet) [...] Result: Comments: See Note; NOTES: [facility] Imaging Services [address] [place] [address] Soft Tissue Neck WITH Contrast MR#: [id number] Acct: [id number] Name: KELIN MACIEL Cathleen p #: [id number] : 1990 F 27 From: Dante Myers MD PCP: Cecilia Dhaliwal DO Status: REG CLI Study: Soft Tissue Neck WITH Contrast Date of Exam: 10/20/17 Exam# [id number] Ordering Dr: Ryan Marino MD STUDY: CT [...] soft tissues are unremarkable. 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 Phlegmonou s features without organized abscess. Electronically Signed: Dante Myers, at 10:43 EDT Tel , Service support , CC: Otoniel lagos MD; Cecilia Dhaliwal DO Absorption And Adsorption Engineer: Signed 05-Apr-2015 Emergency Department Summary Result: Comments: See Note; NOTES: [facility] Medical Records Department [address] [place] [address] Emergency Department Summary MR#: [id number] Acct: [id number] Name: KELIN FLORES Rep #: [id number] : 1990 24 From: Kimi Mario MD PCP: Cecilia Dhaliwal DO Status: [facility] DATE OF SERVICE: 04/05/2015 CHIEF COMPLAINT: [...] an Alumafoam splint. She is referred to [facility] for outpatient followup and she was given a note for work restricti ons. DISPOSITION: Discharge. DIAGNOSIS: Left ring finger contusion. Kimi Mario MD T: NTS JOB: [id number] 04/05/15441 <Electronically signed by Kimi Mario MD> Date __ Kimi Mario MD Cosigner Signature (If Indicated): Date CC: Cecilia Dhaliwal DO Date Dictated : 04/05/15221 Date Transcribed: 04/05/15221 Absorption And Adsorption Engineer: Signed 05-Apr-2015 Discharge Instruction Result: Comments: See Note; NOTES: [facility] Medical Records Department [address] [place] [address] Discharge Instruction 04/05/15215 MR#: [id number] Acct: [id number] Name: KELIN FLORES Rep #: [id number] : 1990 24 From: Kimi Mario MD [...] problems, contact your doctor. Call [facility] ([phone]) or report to the [facility] Emergency Room. Call 911 if necessary. 04/05/15220 <Electronically signed by Kimi Mario MD> Date Kimi Mario MD Cosign er Signature (If Indicated): Date CC: Cecilia Dhaliwal DO 05-Apr-2015 Hand Min 3 Views Result: Comments: See Note; NOTES: [facility] Imaging Services [address] [place] [address] Verdana 4d Hand Min 3 Views MR#: [id number] Acct: [id number] Name: Maine FLORES Rep #: [id number] : 1990 F 24 From: Jadon Bustamante PCP: Cecilia Dhaliwal DO Status: REG ER Study: Hand Min 3 Views Date of Exam: 04/05/15 Exam# [id number] Ordering Dr: Kimi Mario MD [facility] DY: X-RAY - LEFT HAND REASON [...] DO at 2:17 EST , Service support [phone], RAD/Hand Min 3 Views IMPRESSION: Normal x-ray examinat ion of the hand. Electronically Signed: Jadon Bustamante DO at 2:17 EST , Service support [phone], CC: Kimi Mario MD; Cecilia Dhaliwal DO Absorption And Adsorption Engineer: Signed 06-Feb-2015 Operative Report Result: Comments: See Note; NOTES: [facility] Medical Records Department [address] [place] [address] Operative Report MR#: [id number] Acct: [id number] Name: DAVID FLORES Rep #: [id number] : 1990 From: Ryan Marino MD PCP: Cecilia Dhaliwal DO Status: [facility] DATE OF SERVICE: 01/21/2015 DATE [...] condition. Otoniel Marino MD T: NTS JOB: [id number] 02/06/15 0905 <Electronically signed by Ryan Marino MD> Date ___ Ryan Marino MD Cosigner Signature (If Indicated): Date CC: Otoniel Marino MD; Cecilia Dhaliwal DO Date Dictated: 01/21/15 1225 Date Transcribed: 01/21/151224 Absorption And Adsorption Engineer: Signed 21-Jan-2015 Discharge Instruction Result: Comments: See Note; NOTES: [facility] Medical Records Department [address] [place] [address] Instructions for Home/Discharge Instructions 01/21/15 1141 MR#: [id number] Acct: [id number] Name: KELIN FLORES Rep #: [id number] : 1990 From: Ryan Marino MD PCP: Cecilia Dhaliwal DO Status: REG MDC Discharge Diet: Light diet - advance as [...] Result: Comments: See Note; NOTES: [facility] Imaging Services [address] [place] [address] Verdana 4d Orbit Face Neck W/WO Contrast MR#: [id number] Acct: [id number] [facility] e: KELIN FLORES Rep #: [id number] : 1990 F 24 From: Irina Belcher PCP: Cecilia Dhaliwal DO Status: REG CLI Study: Orbit Face Neck W/WO Contrast Date of Exam: 12/31/14 [id number] MD STUDY: MRI [...] CT. Normal bilateral parotid glands. Normal bilateral gas pump attendant spaces. Normal bilateral parapharynge al spaces. [...] at 10:21 EST Tel , Service support [phone], N.B. : The above information has been verbally conveyed by Irina Blecher MD to Dr. Delacruz, covering physician, on 12/31/2014 10:13:34 (ET). CC: Otoniel Marino MD; Cecilia Dhaliwal DO Absorption And Adsorption Engineer: Signed 10-Dec-2014 Soft Tissue Neck WITH Contrast Result: Comments: See Note; NOTES: [facility] Imaging Services [address] [place] [address] Verdana 4d Soft Tissue Neck WITH Contrast MR#: [id number] Acct: [id number] Na me: KELIN FLORES Rep #: [id number] : 1990 F 24 From: Basilio Agudelo MD PCP: Cecilia Dhaliwal DO Status: REG CLI Study: Soft Tissue Neck WITH Contrast Date of Exam: 12/10/14 Exam# [id number] [facility] Dr: Mala Alfredo STUDY: CT SOFT [...] Both parotid glands are normal. Normal bilateral gas pump attendant spaces. Normal bilatera l parapharyngeal spaces. [...] MD at 11:54 EDT , Service support [phone], CC: Mala Alfredo; Cecilia Dhaliwal DO Absorption And Adsorption Engineer: Signed 05-Dec-2014 Thyroid Result: Comments: See Note; NOTES: [facility] Imaging Services [address] [place] [address] Verdana 4d Thyroid MR#: [id number] Acct: [id number] Name: KELIN FLORES Rep #: [id number] : 1990 F 24 From: Joby Hurd MD PCP: Cecilia Dhaliwal DO Status: REG CLI Study: Thyroid Date of Exam: 12/05/14 Exam# [id number] Ordering Dr: Mala Alfredo STUDY: THYROID UL [...] at 9:37 EDT Tel , Service support [phone], CC: Mala Alfredo; Cecilia Dhaliwal DO Absorption And Adsorption Engineer: Signed 15-Jan-2014 Gallbladder Result: Comments: See Note; NOTES: [facility] Imaging Services [address] [place] [address] Ultrasound Report MR#: [id number] Acct: [id number] Name: KELIN FLORES Rep #: [id number] : 1990 F 23 From: Heriberto Falk MD PCP: Cecilia Dhaliwal DO Status: REG CLI Study: Gallbladder Date of Exam: 01/15/14 Exam# [id number] Ordering Dr: Cecilia Dhaliwal DO STUDY: ABDOMINA [...] MD at 11:12 EST , Service support [phone], CC: Cecilia Dhaliwal DO Absorption And Adsorption Engineer: Signed Social History Name Dates Details Alcohol Use: Occasional alcohol use. 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 [...] kg/m2 Body Surface Area Calculated 1.86 m2 63-Glo-096567:14 Pulse 82 /min Comments: Pattern: Regular Respiration [...] kg/m2 Body Surface Area Calculated 1.86 m2 32-Bmx-154817:48 Temperature 100.7 f Comments: Method: Oral Pulse [...] 1.86 m2 Results Date Description Value Details 61-Ufj-98304:00 ASP DONE IN LAB See Note Comments: [facility] [address] [place], [place], [address] (Normal) Comments: Patient: KELIN MACIEL : 1990 (27/F) Acct Num: [id number] Phys: Jamila CAM,Otoniel Unit Num: [id number] Loc: LAB Specimen: [id number] Received: 10/13/17 - [...] for cytologystudy. / AM:rehan 10/13/17 TC:5 CPT: 45521, 71741, 07112 CYTOLOGY STUDY Slides are reviewed. DIAGNOSIS CYTOLOGY [...] 8.40 U/mL Comments: PATIENT NOT FASTINGPERFORMED BY: [facility] Vqssrz5465 [facility] [id number] 4 IgG (Abnormal) Range: 0.00-0.59 Comments: Negative <0.60 Equivocal 0.60 - 0.69 Positive >0.69 :3 Cytomegalovirus (CMV) Ab, <30.0 AU/mL Comments: PATIENT NOT FASTINGPERFORMED BY: [facility] Vbbtal4277 [facility] [id number] 4 IgM (Normal) Range: 0.0-29.9 Comments: Negative <30.0 Equivocal 30.0 - 34.9 Positive >34.9 A positive result is generally indicative of acute infection, reactivation or persistent IgM production. :34 EBV Acute Infection Antibodies Comments: PATIENT NOT FASTINGPERFORMED BY: [facility] Fjwkzc1395 [facility] [id number] Interpretation: SPRCS (Normal) Comments: EBV Interpretation Chart . Interpretation EBV-IgM EA(D)-IgG VCA-IgG EBNA-IgG . EBV Seronegative - - - - Early Phase + - - - Acute Primary + +or- + - Infection Convalescence/Past - +or- + + Infection Reactivated +or- + + + Infection + Antibody Present - Antibody Absent :34 Specimen Status Report Comments: PATIENT NOT FASTINGPERFORMED BY: [employer] Xfpnbu0886 [facility] [id number] 98-Djf-645986:3 Written Authorization WAR (Normal) Comments: PATIENT NOT FASTINGPERFORMED BY: [facility] Smdcfj2475 [facility] [id number] 4 Comments: Written Authorization Received.Authorization received from BEATRIZ PAEZ LPN [id number] by Letha Aguilar :34 Anti-TPO Antibody (46940) Comments: PATIENT NOT FASTINGPERFORMED BY: [facility] Wbxsdl6847 [facility] [id number] Liver-Kidney Microsomal Ab <1.0 {Units} (Normal) Range: 0.0-20.0 Comments: Negative 0.0 - 20.0 Equivocal 20.1 - 24.9 Positive >24.9 . LKM type 1 antibodies are detected in patients with autoimmune hepatitis type 2 and in up to 8% of patients with chronic HCV infection. :34 TSH (79312) Comments: PATIENT NOT FASTINGPERFORMED BY: [facility] Ylwlvp3123 [address] InstinctivDublin [place] [id number] TSH 0.702 {uIU/mL} (Normal) Range: 0.450-4.500 :34 T4, FREE (THYROXINE) (07284) Comments: PATIENT NOT FASTINGPERFORMED BY: [employer] Rkoxtz1710 [address] VirtuOz[address] [id number] T4,Free(Direct) 1.36 ng/dL (Normal) Range: 0.82-1.77 :34 T3, FREE (TRIDOTHYRONINE) (69640) Comments: PATIENT NOT FASTINGPERFORMED BY: [facility] Gwesuj8729 [address] [facility] [place] [id number] Triiodothyronine,Free,Serum 2.9 pg/mL (Normal) Range: 2.0-4.4 :23 HgA1C , Office (47152) HgA1C , Office 4.9 % (Normal) Range: 4.6 - 7.1 :34 CALCIFIDIOL (54590) VIT D 25 Comments: PATIENT NOT FASTINGPERFORMED BY: [facility] Gqicxl5848 [address] [facility] [place] [id number] Vitamin D, 25-Hydroxy 16.0 ng/mL (Abnormal) Range: 30.0-100.0 Comments: Vitamin D deficiency has been defined by the [place] of[place]icine and an Endocrine Society practice guideline as alevel of serum 25-OH vitamin D less than 20 ng/mL (1,2).The Endocrine Society went on to further define vitamin Dinsufficiency as a level between 21 and 29 ng/mL (2).1. IOM ([place] of Medicine). 2010. Dietary reference intakes for calcium and D. [place]: The National Academies Press.2. Kelly MF, [place], Padmini CHICAS, et al. Evaluation, treatment, and prevention of vitamin D deficiency: an Endocrine Society clinical practice guideline. JCEM. 2010; 96(7):1911-30. :34 Folate (13948) Comments: PATIENT NOT FASTINGPERFORMED BY: CB [facility] Urjugn2913 Lowery RoadDublin [place] [id number] Folate (Folic Acid), Serum 14.3 ng/mL (Normal) Comments: A serum folate concentration of less than 3.1 ng/mL isconsidered to represent clinical deficiency. :34 VITAMIN B-12 (CYANOCOBALAMIN) Comments: PATIENT NOT FASTINGPERFORMED BY: [facility] Ugvkhm5687 Lowery RoadDublin [place] [id number] (05599) Vitamin B12 734 pg/mL (Normal) Range: 232-1245 :34 SED RATE ERYTHROCYTE (05463) Comments: PATIENT NOT FASTINGPERFORMED BY: CB [facility] Vhwxsn6920 [address]y RoadDublin [place] [id number] Sedimentation Rate-Westergren 2 mm/h (Normal) Range: 0-32 :34 RHEUMATOID FACTOR-QUANT (70292) Comments: PATIENT NOT FASTINGPERFORMED BY: [facility] Hbpooh0236 Lowery RoadDublin [place] [id number] RA Latex Turbid. <10.0 {IU/mL} (Normal) Range: 0.0-13.9 :34 METABOLIC PANEL, COMPREHENSIVE Comments: PATIENT NOT FASTINGPERFORMED BY: CB [facility] Bfuyjd5899 [address]y RoadDublin [place] [id number] (72728) ALT (SGPT) 11 [iU]/L (Normal) Range: 0-32 [...] Glucose, Serum 92 mg/dL (Normal) Range: 65-99 84-Inm-083705:34 C-REACTIVE PROTEIN (45245) Comments: PATIENT NOT FASTINGPERFORMED BY: [facility] RehabilitationIssefu5159 [facility] [id number] C-Reactive Protein, Quant <0.3 mg/L (Normal) Range: 0.0-4.9 14-Num-886851:34 CBC (AUTO) (60843) Comments: PATIENT NOT FASTINGPERFORMED BY: [facility] for RehabilitationBqzhjh3847 [facility] [id number] Platelets 308 {x10E3/uL} (Normal) Range: 150-379 RDW 13.8 % (Normal) Range: 12.3-15.4 MCHC 34.8 g/dL (Normal) Range: 31.5-35.7 MCH 29.0 pg (Normal) Range: 26.6-33.0 MCV 84 fL (Normal) Range: 79-97 Hematocrit 41.4 % (Normal) Range: 34.0-46.6 Hemoglobin 14.4 g/dL (Normal) Range: 11.1-15.9 RBC 4.96 {x10E6/uL} (Normal) Range: 3.77-5.28 WBC 8.6 {x10E3/uL} (Normal) Range: 3.4-10.8 51-Kem-786081:34 ALEC (ANTINUCLEAR ANTIBODY) Comments: PATIENT NOT FASTINGPERFORMED BY: [facility] Mljmlq0006 [address] [facility] [id number] (54524) ALEC Direct Negative (Normal) 84-Ofc-858914:51 NuSwab Vaginitis Plus Comments: PATIENT NOT FASTINGPERFORMED BY: [facility] Ooujznflhi2942 [facility] [id number] Information: [id number] (trich/BV/GC/tavo W/O Herpes) (27521) Neisseria gonorrhoeae, Negative (Normal) CRUZ Chlamydia trachomatis, [...] was developed and its performance characteristics determinedby [employer]. It has not been cleared or appro chapis by the Food and DrugAdministration. The FDA has determined that such clearance orapproval is not necessary. BVAB 2 Low - 0 {Score} (Normal) Atopobium vaginae Low - 0 {Score} (Normal) 8-Dys-883486: Mass (define area) See Note (Normal) Comments: [facility] [address] [place], [address] 24 Comments: Patient: KELIN FLORES : 1990 (24/F) Acct Num: [id number] Phys: Jamila CAM,Marshall Unit Num: [id number] Loc: [facility] Specimen: [id number] Received: 01/21/15 - 1028 Spec Ty pe: [...] one block. / AM: 01/21/15 TC:2 CPT: 73818 x2, 78474 x2, 01434 x2 HEADER OPERATION: Incisional biopsy neck mass [...] 21-Jan-20158:00 ,Urine Comments: [facility] [address] [place], [address] HCGUQUAL Negative {Negative} (Normal) Comments: Very dilute urine specimens, as indicated by a low specificgravity, may not contain office machines sales representative levels of hCG.If is still suspected, a first morning urinespecimen should be collected 48 hours later and tested. 85-Ytb-78657:37 CBC, Platelets & Auto Diff Comments: PATIENT NOT FASTINGPERFORMED BY: [facility] Xgsxkq1350 [facility] [id number] Information: [id number] (46066) Immature Grans (Abs) 0.0 {x10E3/uL} (Normal) Range: [...] Panel, Comprehensive Comments: PATIENT NOT FASTINGPERFORMED BY: [facility] RehabilitationPrzbpn2544 [facility] [id number] (50873) ALT (SGPT) 13 [iU]/L (Normal) Range: 0-32 [...] mg/dL (Normal) Range: 65-99 :37 Anti-TPO Antibody (19412) Comments: PATIENT NOT FASTINGPERFORMED BY: [facility]Co[facility] for RehabilitationEbeodl3531 [facility] [id number] Thyroid Peroxidase (TPO) Ab 7 {IU/mL} (Normal) Range: 0-34 :37 T4, FREE (THYROXINE) (61271) Comments: PATIENT NOT FASTINGPERFORMED BY: [facility]6370 [facility] [id number] T4,Free(Direct) 1.36 ng/dL (Normal) Range: 0.82-1.77 :37 T3, FREE (TRIDOTHYRONINE) (88341) Comments: PATIENT NOT FASTINGPERFORMED BY: [facility]6370 [facility] [id number] Triiodothyronine,Free,Serum 3.5 pg/mL (Normal) Range: 2.0-4.4 :37 TSH (27105) Comments: PATIENT NOT FASTINGPERFORMED BY: [facility]6370 [facility] [id number]; apt. 12-10-14 TSH 1.210 {uIU/mL} (Normal) Range: 0.450-4.500 Urine Drug Screen positive amphetamines :30 (Office - Urine (Normal) Drug Screen 6 Panel) (31291) Glucose, Serum 72 mg/dL (Normal) Comments: PATIENT WAS FASTINGPERFORMED BY: [facility]6370 [facility] [id number] 1:30 Range: 65-99 :30 Lipid Panel With LDL/HDL Comments: PATIENT WAS FASTINGPERFORMED BY: [facility]6370 [facility] [id number] Information: [id number],[id number] Ratio LDL/HDL Ratio 1.7 {ratio_units} (Normal) Range: [...] 141 mg/dL (Normal) Range: 100-189 :39 LIPASE (71361) Comments: PATIENT NOT FASTINGPERFORMED BY: [facility] Gcvkuc4365 [address] RoadDublin [place] [id number] Lipase, Serum 20 U/L (Normal) Range: 0-59 :39 AMYLASE (85782) Comments: PATIENT NOT FASTINGPERFORMED BY: [facility] Lqowrf5081 [address] RoadDublin [place] [id number] Amylase, Serum 33 U/L (Normal) Range: 31-124 :39 HCG Qualitative, Serum (73380) Comments: PATIENT NOT FASTINGPERFORMED BY: [facility] Zmplrb5905 [address] [facility] [place] [id number] hCG,Beta Subunit,Qual,Serum Negative m[iU]/mL (Normal) :39 CALCIFIDIOL (35171) VIT D 25 Comments: PATIENT NOT FASTINGPERFORMED BY: [facility] Tdjplt8359 [address] [facility] [place] [id number] Vitamin D, 25-Hydroxy 35.9 ng/mL (Normal) Range: 30.0-100.0 Comments: Vitamin D deficiency has been defined by the [place] of[place]icine and an Endocrine Society practice guideline as alevel of serum 25-OH vitamin D less than 20 ng/mL (1,2).The Endocrine Society went on to further define vitamin Dinsufficiency as a level between 21 and 29 ng/mL (2).1. IOM ([place] of [employer]). 2010. Dietary reference intakes for calcium and D. [place]: The National Academies Press.2. Kelly MF, [place], Shayan-Ventura CHICAS, et al. Evaluation, treatment, and prevention of vitamin D deficiency: an Endocrine Society clinical practice guideline. JCEM. 2010; 96(7):1911-30. :39 Folate (74117) Comments: PATIENT NOT FASTINGPERFORMED BY: [facility] Ogsxrx2934 [address] [facility] GladwinD[place] [id number] Folate (Folic Acid), Serum 12.6 ng/mL (Normal) Comments: A serum folate concentration of less than 3.1 ng/mL isconsidered to represent clinical deficiency. :39 VITAMIN B-12 (CYANOCOBALAMIN) Comments: PATIENT NOT FASTINGPERFORMED BY: [employer] Eonesp5822 [facility] [id number] (45345) Vitamin B12 703 pg/mL (Normal) Range: 211-946 :39 TSH (34166) Comments: PATIENT NOT FASTINGPERFORMED BY: [employer] [facility] Ddqdms8242 [facility] [id number] TSH 0.736 {uIU/mL} (Normal) Range: 0.450-4.500 :39 SED RATE ERYTHROCYTE (59195) Comments: PATIENT NOT FASTINGPERFORMED BY: [employer] Jiggwk8970 [facility] [id number] Sedimentation Rate-Westergren 2 mm/h (Normal) Range: 0-32 :39 METABOLIC PANEL, Comments: PATIENT NOT FASTINGPERFORMED BY: [facility] Lxiwzw7555 [facility] [id number] Information: [id number],[id number] COMPREHENSIVE (28247) ALT (SGPT) 13 [iU]/L (Normal) Range: 0-32 [...] mg/dL (Normal) Range: 65-99 :39 CBC (AUTO) (06104) Comments: PATIENT NOT FASTINGPERFORMED BY: [facility] Uotcjo2826 [facility] [id number] Platelets 348 {x10E3/uL} (Normal) Range: 150-379 RDW 13.6 % (Normal) Range: 12.3-15.4 MCHC 34.4 g/dL (Normal) Range: 31.5-35.7 MCH 29.0 pg (Normal) Range: 26.6-33.0 MCV 84 fL (Normal) Range: 79-97 Hematocrit 41.3 % (Normal) Range: 34.0-46.6 Hemoglobin 14.2 g/dL (Normal) Range: 11.1-15.9 RBC 4.90 {x10E6/uL} (Normal) Range: 3.77-5.28 WBC 10.5 {x10E3/uL} (Normal) Range: 3.4-10.8 :39 ALEC (ANTINUCLEAR ANTIBODY) Comments: PATIENT NOT FASTINGPERFORMED BY: [employer] Hknzii2082 [facility] [id number] (99795) ALEC Direct Negative (Normal) Plan of Care [...] Indication: Abdominal pain Abdominal pain : Reviewed Strategic Debriefing Officer Letter Indication: Abdominal pain Planned Observations Drug Screen (7drug + Alcohol) (47177)Indication: ADD (attention deficit disorder) On: 94-Tic-815776:51 Request Glucose (24456)Indication: Encounter for pre-employment examination On: 44-Xng-756101:35 Request Lipid Panel (19639)Indication: Encounter for pre-employment examination On: 27-Bql-931746:35 Request Urine Drug Screen (Office - Urine Drug Screen 9 Panel) (16701)Indication: ADD (attention deficit disorder) On: 29-Isb-567704:31 Request GLUCOSE TOLERANCE TEST (GTT) (33702)Indication: Fatigue On: 29-Cxh-226020:23 Request Comments: 5 hr test CALCIUM SERUM (06410)Indication: Hypercalcemia On: 17-Jan-20149:23 Request Folate (06990)Indication: Fatigue On: 14-Jan-20149:26 Request Planned Encounters Medical; [...] Intent (J1885)By: Mala Alfredo CNP Comments: lot 19381gx3.1.1630mgleft gmIMas, RING STRIKER Toradol Injection, 30 mg On: 17-Jan-2014 Intent (J1885)By: Cecilia Dhaliwal DO Comments: Lot:[id number]-TASmq:10/16/2015Dose:30mgRoute:30mg Site:[facility] By:EVIE signed Cecilia Dhaliwal DO Ultrasound [...]
--- OUTSIDE RECORDS SUMMARY | 2018-05-09 16:57 | XMS RPT_ITS ---
:1990 Author Organization OHIP Care Team Providers Name Role Phone Cecilia Dhaliwal DO Attending Unavailable Madhuri DOLizzyCecilia Referring Unavailable Madhuri DOLizzyCecilia Consulting Unavailable Madhuri, Cecilia Attending Unavailable Madhuri, Cecilia Referring Unavailable Madhuri, Cecilia Primary Care Unavailable Ryan Marino Attending Unavailable Ryan Marino Referring Unavailable Madhuri, Cecilia Primary Care Unavailable Ryan Marino Attending Unavailable Ryan Marino Referring Unavailable Madhuri, Cecilia Primary Care Unavailable PROBLEMS PROBLEMS No Problem Records FoundPROCEDURES PROCEDURES No Procedure Records FoundRESULTS RESULTS THYROID Observed: 03/07/2018 Status: F Source: [place] 12:52 PM [facility] Imaging Services [address] [place] [address] Thyroid MR#: [id number] Acct: [id number] Name: KELIN FINLEY Rep #: [id number] : 1990 F 27 From: Jordy White MD PCP: Cecilia Dhaliwal DO Status: REG CLI Study: Thyroid Date of Exam: 03/07/18 Exam# [id number] Ordering Dr: Cecilia Dhaliwal DO STUDY: THYROID ULTRASOUND REASON FOR EXAM: Female, 27 years old. History of thyroid nodules. TECHNIQUE: Ultrasound evaluation of the thyroid was performed with real-time and static hughes-scale imaging. COMPARISON: Comparison is made with prior study dated December 05, 2014. FINDINGS: RIGHT LOBE: The right lobe of the thyroid gland measures 4.8 cm x 1.8 cm x 1.5 cm. There is a homogeneous echotexture. There is a stable 3 mm x 3 mm x 1 mm hypoechoic solid/cystic nodule in the midpole of the lobe. LEFT LOBE: The left lobe of the thyroid gland measures 5.2 cm x 1.7 cm x 1.6 cm. There is a homogeneous echotexture. Stable 3 mm x 3 mm x 2 mm hypoechoic solid nodule in the lower pole. ISTHMUS: The isthmus measures 3.0 mm. The regional lymph nodes are normal. US/Thyroid IMPRESSION: Stable examination. Electronically Signed: Jordy White MD at 13:28 EST , Service support , CC: Cecilia Dhaliwal DO Building Rental Manager: Signed SOFT TISSUE NECK WITH Observed: 10/20/2017 Status: F Source: JOSÉ LUIS CONTRAST 10:11 AM [facility] Imaging Services [address] [place] [address] Soft Tissue Neck WITH Contrast MR#: [id number] Acct: [id number] Name: KELIN FINLEY Rep #: [id number] : 1990 F 27 From: Dante Myers MD PCP: Cecilia Dhaliwal DO Status: REG CLI Study: Soft Tissue Neck WITH Contrast Date of Exam: 10/20/17 Exam# [id number] Ordering Dr: Ryan Marino MD STUDY: CT SOFT TISSUE NECK WITH CONTRAST REASON FOR EXAM: Female, 27 years old. Left-sided neck mass painful to the touch. Previous puss filled mass was removed from the same area in 2018. RADIATION DOSAGE (If Supplied By Facility): CTDIvol = ( 22.61 ) mGy, DLP = ( 660.50 ) mGycm TECHNIQUE: Thin slice helical CT acquisition of the neck soft tissues was performed from the level of the emelyn through the orbits after administration of IV contrast Isovue-300, 75 mL, with paracoronal and parasagittal 2-D multiplanar reformatted images saved to the PACS archive. Individualized dose optimization techniques were used for this CT. COMPARISON: 12/31/2014 MRI face/neck. 12/10/2014 CT soft tissue neck.. FINDINGS: Left sided sternohyoid strap muscle focal thickening, mildly heterogeneous features internally, protruding to the undersurface of the skin. This inflammatory process measures approximately 2.1 cm craniocaudal, up to 1.9 cm transverse, and up to 7.1 mm anterior-posterior depth. There is no organized abscess. The process may also partially involve the underlying sternothyroid muscle. In this location the most common inflamed/infected cystlike lesion is a thyroglossal duct cyst. There is radiodense thyroid tissue at the base of this process. There is not a clearly defined tract supports toward the base of the tongue. Morphologically, the thyroid is in appropriate position with appropriate size and density characteristics. The remaining supraclavicular and cervical soft tissues are unremarkable. 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 Phlegmonous features without organized abscess. Electronically Signed: Dante Myers, at 10:43 EDT Tel , Service support , CC: Otoniel Marino MD; Cecilia Dhaliwal DO Building Rental Manager: Signed ASP DONE IN LAB Observed: 2017 Status: F Source: [place] 12:00 AM [facility] Patient: KELIN FINLEY : 1990 () Acct Num: [id number] Phys: Jamila CAM,Otoniel Unit Num: [id number] Loc: LAB Specimen: [id number] Received: 10/13/17 - 1002 Spec Type: ASP HERE TISSUES TISSUES: Neck, NOS COMMENT The specimen is evaluated at the time of FNA by Dr. Ballesteros. Immediate Evaluation: Negative for malignant cells. Skeletal muscle tissue present. Clinical correlation is suggested. CYTOLOGY GROSS Received is 0.2 ml of shaikh fluid labeled with the patient's name, and designated midline neck mass. Two imprints made from the submitted fluid and the rest is added to CytoLyt for cell block preparation. Submitted for cytology study. / AM:rehan 10/13/17 TC:5 CPT: 72087, 84975, 80490 CYTOLOGY STUDY Slides are reviewed. DIAGNOSIS CYTOLOGY Fine needle aspiration, midline neck mass (smears and cell block): Scant skeletal muscle fragments are present. No evidence of malignancy. AM:rehan 10/14/17 HEADER OPERATION: FNA midline neck mass PRE-OP DIAGNOSIS: Midline neck mass TISSUE SUBMITTED: FNA midline neck mass, smear and fluid for cytology, cell block Signed Kilo Ballesteros 10/14/17 <signature on file> Performed By: #### PASPOS #### [facility] [place], [address] ALLERGIES ALLERGIES DATE TYPE / CODE NAME / CODE REACTION SEVERITY SOURCE 05/26/2016 Drug latex/[id number] Rash Unknown [place] [facility] Allergy/4160 8921(RXNORM) Hospital 60309(SNOMED Repository CT) ENCOUNTERS ENCOUNTERS ADMIT/DISCHARGE ACCOUNT ADMITTING ENCOUNTER LOCATION SOURCE NUMBER CLASS 03/07/2018 [id number] Ambulatory José Luis José Luis 3 [facility] ing:US Repository 03/02/2018 [id number] Ambulatory Building:[facility] Pract[facility] Repository 10/20/2017 [id number] Ambulatory José Luis [place] [address] [place] [address] ing:CT Repository [id number] [facility] Luis [place] 3 [facility] ing:LAB Repository PAYERS PAYERS ENCOUNTER GUARANTOR PAYER SUBSCRIBER SOURCE 03/07/2018 KELIN Ashton Primary JORGE G [place] [id number] Insurance:AETNAPolicy HAUMESSERDOB: [facility] [place]: [id number] [id number] Repository [address]Tap: 330) Date:3395-39-81BE [phone] () [id number] ED AUGUSTE [phone]: 03/07/2018 Secondary NOT GIVENUNK [place] Insurance:SELF PAY [facility] Number: Effective Repository Date:2018-03-02 03/02/2018 Kelin B Primary Kelin B [facility] Practices HaumesserDOB: Insurance:AETNAPolicy HaumesserDOB: Repository Number: [id number] [place] 04Effective 4 [facility], Date:2895-06-09[place], [place] [address]Onv: Name:[address] [place] [address]Kwd: ED AUGUSTE [id number]: (HP)Tel: [phone]) ([phone] () 03/02/2018 Secondary Kelin B [facility] Practices Insurance:[place] HaumesserDOB: [facility] Number: [id number] [address] ve Date:2013-02-14 - [facility], [id number] [place] [address]Moj: Name:GPO Box ~(3 [phone] (HP) [id number]: 03/02/2018 Tertiary Kelin B [facility]IP Practices Insurance:[place] HaumesserDOB: Repository /[facility] Number: [id number] [address] iraida Date:2015-02-14 - [facility], [id number] [address]Ptc: Name:GPO Box ~([phone], (HP) [id number]: 10/20/2017 KELIN B Primary JORGE G [place] [id number] Insurance:AETNAPolicy [facility] Number: [id number] [id number] Repository [address]Sup: (330) Date:1950-18-24[phone] (HP) [id number] [address]HC: 10/20/2017 Secondary KELIN B [place] Insurance:CARESOURCEP HAUMESSERDOB: [facility] Number: [id number] [id number] Repository Date:2017-10-06 [address]ATTN: [place] [address]UD: 10/20/2017 Tertiary NOT GIVENUNK [place] Insurance:SELF PAY [facility] Number: Effective Repository Date:2017-10-06 2017 KELIN B Primary JORGE G [place] [id number] Insurance:AETNAPolicy HAUMESSERDOB[facility] [address] Number: [id number], [place] [id number] Repository [address]Xks: (330) Date:8802-22-72[phone] (HP) 105[address] [address]YI: 2017 Secondary KELIN Ordonez Insurance:CARESOURCEP HAUMESSERDOB: [facility] Number: [id number] [id number] Repository Date:2017-10-11P [address]ATTN: [place] [address]CU: 2017 Tertiary NOT GIVENUNK [place] Insurance:SELF PAY [facility] Number: Effective Repository Date:2017-10-11
--- OUTSIDE RECORDS SUMMARY | 2018-05-09 16:57 | XMS RPT_ITS | Continuity of Care Document ---
:1990 Author Organization [facility] Address [facility] [facility] [address] [place] [address] Phone Care Team Providers Name Role Phone Cecilia Dhaliwal DO Unavailable Sha CAM, Trei Pyle Unavailable Nubia CAM, Corwin Unavailable Elida CAM, Yonathan Crenshaw Unavailable JACINTO Degroot Unavailable Unavailable Long MOLD RUNNER, Sirena Faustin Unavailable Unavailable Unavailable Unavailable Problems [...] Multiple thyroid nodules (E04.2, 241.1) Comments: RT [id number] and left 7a7f4py with normal regional lymph nodes follow 6 [...] 0 days Quantity: 30 {Capsule} Refills: 0 Ordered:05-Dec-2017 Teri Dalton MD Start : 05-Dec-2017 Active Comments:DX: F98.8thirty FLUCONAZOLE, 150MG (Oral Tablet) [...] WITH Contrast Result: Comments: See Note; NOTES: [facility] Imaging Services [address] [place] [address] Soft Tissue Neck WITH Contrast MR#: [id number] Acct: [id number] Name: KELIN MACIEL Cahtleen p #: [id number] : 1990 F 27 From: Dante yMers MD PCP: Cecilia Dhaliwal DO Status: REG CLI Study: Soft Tissue Neck WITH Contrast Date of Exam: 10/20/17 Exam# [id number] Ordering Dr: Ryan Marino MD STUDY: CT [...] soft tissues are unremarkable. 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 Phlegmonou s features without organized abscess. Electronically Signed: Dante Myers, at 10:43 EDT Tel , Service support , CC: Otoniel lagos MD; Cecilia Dhaliwal DO Show Girl: Signed 05-Apr-2015 Emergency Department Summary Result: Comments: See Note; NOTES: [facility] Medical Records Department [address] [place] [address] Emergency Department Summary MR#: [id number] Acct: [id number] Name: KELIN FLORES Rep #: [id number] : 1990 24 From: Kimi Mario MD PCP: Cecilia Dhaliwal DO Status: [facility] DATE OF SERVICE: 04/05/2015 CHIEF COMPLAINT: Finger [...] an Alumafoam splint. She is referred to [facility] for outpatient followup and she was given a note for work restricti ons. DISPOSITION: Discharge. DIAGNOSIS: Left ring finger contusion. Kimi Mario MD T: NTS JOB: [id number] 04/05/15441 <Electronically signed by Kimi Mario MD> Date __ Kimi Mario MD Cosigner Signature (If Indicated): Date CC: Cecilia Dhaliwal DO Date Dictated : 04/05/15221 Date Transcribed: 04/05/15221 Show Girl: Signed 05-Apr-2015 Discharge Instruction Result: Comments: See Note; NOTES: [facility] Medical Records Department [address] [place] [address] Discharge Instruction 04/05/15215 MR#: [id number] Acct: [id number] Name: KELIN FLORES Rep #: [id number] : 1990 24 From: Kimi Mario MD [...] problems, contact your doctor. Call [facility] ([phone]) or report to the [facility] Emergency Room. Call 911 if necessary. 04/05/15220 <Electronically signed by Kimi Mario MD> Date Kimi aMrio MD Cosign er Signature (If Indicated): Date CC: Cecilia Dhaliwal DO 05-Apr-2015 Hand Min 3 Views Result: Comments: See Note; NOTES: [facility] Imaging Services [address] [place] [address] Verdana 4d Hand Min 3 Views MR#: [id number] Acct: [id number] Name: Maine FLORES Rep #: [id number] : 1990 F 24 From: Jadon Bustamante PCP: Cecilia Dhaliwal DO Status: REG ER Study: Hand Min 3 Views Date of Exam: 04/05/15 Exam# [id number] Ordering Dr: Kimi Mario MD [facility] DY: X-RAY - LEFT HAND REASON [...] DO at 2:17 EST , Service support [phone], RAD/Hand Min 3 Views IMPRESSION: Normal x-ray examinat ion of the hand. Electronically Signed: Jadon Bustamante DO at 2:17 EST , Service support [phone], CC: Kimi Mario MD; Cecilia Dhaliwal DO Show Girl: Signed 06-Feb-2015 Operative Report Result: Comments: See Note; NOTES: [facility] Medical Records Department [address] [place] [address] Operative Report MR#: [id number] Acct: [id number] Name: DAVID FLORES Rep #: [id number] : 1990 From: Ryan Marino MD PCP: Cecilia Dhaliwal DO Status: [facility] DATE OF SERVICE: 01/21/2015 DATE OF [...] condition. Otoniel Marino MD T: NTS JOB: [id number] 02/06/15 0905 <Electronically signed by Ryan Marino MD> Date ___ Ryan Marino MD Cosigner Signature (If Indicated): Date CC: Otoniel Marino MD; Cecilia Dhaliwal DO Date Dictated: 01/21/15 1225 Date Transcribed: 01/21/151224 Show Girl: Signed 21-Jan-2015 Discharge Instruction Result: Comments: See Note; NOTES: [facility] Medical Records Department [address] [place] [address] Instructions for Home/Discharge Instructions 01/21/15 1141 MR#: [id number] Acct: [id number] Name: KELIN FLORES Rep #: [id number] : 1990 From: Ryan Marino MD PCP: Cecilia Dhaliwal DO Status: REG AKC Discharge Diet: Light diet - advance as [...] W/WO Contrast Result: Comments: See Note; NOTES: [facility] Imaging Services [address] [place] [address] Verdana 4d Orbit Face Neck W/WO Contrast MR#: [id number] Acct: [id number] [facility] e: KELIN FLORES Rep #: [id number] : 1990 F 24 From: Irina Belcher PCP: Cecilia Dhaliwal DO Status: REG CLI Study: Orbit Face Neck W/WO Contrast Date of Exam: 12/31/14 [facility]am# [id number] [facility] Ryan [facility]ino MD STUDY: MRI [...] CT. Normal bilateral parotid glands. Normal bilateral account auditor spaces. Normal bilateral parapharynge al spaces. Normal [...] at 10:21 EST Tel , Service support [phone], N.B. : The above information has been verbally conveyed by Irina Belcher MD to Dr. Delacruz, covering physician, on 12/31/2014 10:13:34 (ET). CC: Otoniel Marino MD; Cecilia Dhaliwal DO Show Girl: Signed 10-Dec-2014 Soft Tissue Neck WITH Contrast Result: Comments: See Note; NOTES: [facility] Imaging Services [address] [place] [address] Verdana 4d Soft Tissue Neck WITH Contrast MR#: [id number] Acct: [id number] Na me: KELIN FLORES Rep #: [id number] : 1990 F 24 From: Basilio Agudelo MD PCP: Cecilia Dhaliwal DO Status: REG CLI Study: Soft Tissue Neck WITH Contrast Date of Exam: 12/10/14 Exam# [id number] [facility] Dr: Mala Alfredo STUDY: CT SOFT [...] Both parotid glands are normal. Normal bilateral account auditor spaces. Normal bilatera l parapharyngeal spaces. Normal [...] MD at 11:54 EDT , Service support [phone], CC: Mala Alfredo; Cecilia Dhaliwal DO Show Girl: Signed 05-Dec-2014 Thyroid Result: Comments: See Note; NOTES: [facility] Imaging Services [address] [place] [address] Verdana 4d Thyroid MR#: [id number] Acct: [id number] Name: KELIN FLORES Rep #: [id number] : 1990 F 24 From: Joby Hurd MD PCP: Cecilia Dhaliwal DO Status: REG CLI Study: Thyroid Date of Exam: 12/05/14 Exam# [id number] Ordering Dr: Mala Alfredo STUDY: THYROID UL [...] at 9:37 EDT Tel , Service support [phone], CC: Mala Alfredo; Cecilia Dhaliwal DO Show Girl: Signed 15-Jan-2014 Gallbladder Result: Comments: See Note; NOTES: [facility] Imaging Services [address] [place] [address] Ultrasound Report MR#: [id number] Acct: [id number] Name: KELIN FLORES Rep #: [id number] : 1990 F 23 From: Heriberto Falk MD PCP: Cecilia Dhaliwal DO Status: REG CLI Study: Gallbladder Date of Exam: 01/15/14 Exam# [id number] Ordering Dr: Cecilia Dhaliwal DO STUDY: ABDOMINA [...] MD at 11:12 EST , Service support [phone], CC: Cecilia Dhaliwal DO Show Girl: Signed Social History Name Dates Details Alcohol Use: Occasional alcohol use. 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 [...] kg/m2 Body Surface Area Calculated 1.86 m2 06-Ucd-564826:14 Pulse 82 /min Comments: Pattern: Regular Respiration [...] kg/m2 Body Surface Area Calculated 1.86 m2 53-Tpy-326453:48 Temperature 100.7 f Comments: Method: Oral Pulse [...] 1.86 m2 Results Date Description Value Details 27-Vfb-75567:00 ASP DONE IN LAB See Note Comments: [facility] [address] [place], [place], [address] (Normal) Comments: Patient: KELIN MACIEL : 1990 (27/F) Acct Num: [id number] Phys: Jamila CAM,Otoniel Unit Num: [id number] Loc: LAB Specimen: [id number] Received: 10/13/17 - [...] for cytologystudy. / AM:rehan 10/13/17 TC:5 CPT: 67068, 95941, 96952 CYTOLOGY STUDY Slides are reviewed. DIAGNOSIS CYTOLOGY [...] 8.40 U/mL Comments: PATIENT NOT FASTINGPERFORMED BY: [facility] Ezgyun2071 [facility] [id number] 4 IgG (Abnormal) Range: 0.00-0.59 Comments: Negative <0.60 Equivocal 0.60 - 0.69 Positive >0.69 :3 Cytomegalovirus (CMV) Ab, <30.0 AU/mL Comments: PATIENT NOT FASTINGPERFORMED BY: [facility] Klhviq5065 [facility] [id number] 4 IgM (Normal) Range: 0.0-29.9 Comments: Negative <30.0 Equivocal 30.0 - 34.9 Positive >34.9 A positive result is generally indicative of acute infection, reactivation or persistent IgM production. :34 EBV Acute Infection Antibodies Comments: PATIENT NOT FASTINGPERFORMED BY: [facility] Ryhako3295 [facility] [id number] Interpretation: SPRCS (Normal) Comments: EBV Interpretation Chart . Interpretation EBV-IgM EA(D)-IgG VCA-IgG EBNA-IgG . EBV Seronegative - - - - Early Phase + - - - Acute Primary + +or- + - Infection Convalescence/Past - +or- + + Infection Reactivated +or- + + + Infection + Antibody Present - Antibody Absent :34 Specimen Status Report Comments: PATIENT NOT FASTINGPERFORMED BY: [employer] Kpnlqw2757 [facility] [id number] 59-Eih-429524:3 Written Authorization WAR (Normal) Comments: PATIENT NOT FASTINGPERFORMED BY: [facility] Cfttxr2114 [facility] [id number] 4 Comments: Written Authorization Received.Authorization received from BEATRIZ PAEZ LPN [id number] by Letha Aguilar :34 Anti-TPO Antibody (73208) Comments: PATIENT NOT FASTINGPERFORMED BY: [facility] Sapfgs7536 [facility] [id number] Liver-Kidney Microsomal Ab <1.0 {Units} (Normal) Range: 0.0-20.0 Comments: Negative 0.0 - 20.0 Equivocal 20.1 - 24.9 Positive >24.9 . LKM type 1 antibodies are detected in patients with autoimmune hepatitis type 2 and in up to 8% of patients with chronic HCV infection. :34 TSH (01807) Comments: PATIENT NOT FASTINGPERFORMED BY: [facility] Fwzcja[address] iAcademicDublin [place] [id number] TSH 0.702 {uIU/mL} (Normal) Range: 0.450-4.500 :34 T4, FREE (THYROXINE) (99093) Comments: PATIENT NOT FASTINGPERFORMED BY: [employer] Rwsbfs8353 [address] NexMedblin [place] [id number] T4,Free(Direct) 1.36 ng/dL (Normal) Range: 0.82-1.77 :34 T3, FREE (TRIDOTHYRONINE) (50415) Comments: PATIENT NOT FASTINGPERFORMED BY: [employer] Tvgymk4072 [address] [facility] [place] [id number] Triiodothyronine,Free,Serum 2.9 pg/mL (Normal) Range: 2.0-4.4 :23 HgA1C , Office (31653) HgA1C , Office 4.9 % (Normal) Range: 4.6 - 7.1 :34 CALCIFIDIOL (10890) VIT D 25 Comments: PATIENT NOT FASTINGPERFORMED BY: [facility] Xuedqa0576 [address] [facility] [place] [id number] Vitamin D, 25-Hydroxy 16.0 ng/mL (Abnormal) Range: 30.0-100.0 Comments: Vitamin D deficiency has been defined by the Falcon ofMedicine and an Endocrine Society practice guideline as alevel of serum 25-OH vitamin D less than 20 ng/mL (1,2).The Endocrine Society went on to further define vitamin Dinsufficiency as a level between 21 and 29 ng/mL (2).1. IOM (Falcon of Medicine). 2010. Dietary reference intakes for calcium and D. [place]: The National Academies Press.2. Kelly MF, Rocky NC, Padmini CHICAS, et al. Evaluation, treatment, and prevention of vitamin D deficiency: an Endocrine Society clinical practice guideline. JCEM. 2010; 96(7):1911-30. :34 Folate (42244) Comments: PATIENT NOT FASTINGPERFORMED BY: CB [facility] Jexztw8346 [address]y RoadDublin [place] [id number] Folate (Folic Acid), Serum 14.3 ng/mL (Normal) Comments: A serum folate concentration of less than 3.1 ng/mL isconsidered to represent clinical deficiency. :34 VITAMIN B-12 (CYANOCOBALAMIN) Comments: PATIENT NOT FASTINGPERFORMED BY: CB [facility] Hgfgrl8661 Lowery RoadDublin [place] [id number] (49717) Vitamin B12 734 pg/mL (Normal) Range: 232-1245 :34 SED RATE ERYTHROCYTE (83113) Comments: PATIENT NOT FASTINGPERFORMED BY: CB [facility] Itpeve2618 Lowery RoadDublin [place] [id number] Sedimentation Rate-Westergren 2 mm/h (Normal) Range: 0-32 :34 RHEUMATOID FACTOR-QUANT (59079) Comments: PATIENT NOT FASTINGPERFORMED BY: CB [facility] Ahgpuy2139 Lowery RoadDublin [place] [id number] RA Latex Turbid. <10.0 {IU/mL} (Normal) Range: 0.0-13.9 :34 METABOLIC PANEL, COMPREHENSIVE Comments: PATIENT NOT FASTINGPERFORMED BY: CB [facility] Mdjpim6212 Lowery RoadDublin [place] [id number] (47214) ALT (SGPT) 11 [iU]/L (Normal) Range: 0-32 [...] Glucose, Serum 92 mg/dL (Normal) Range: 65-99 66-Hdb-262859:34 C-REACTIVE PROTEIN (10210) Comments: PATIENT NOT FASTINGPERFORMED BY: Ak[facility] TherapeuticsSaint Barnabas Medical CenterBjygji0916 [facility] [id number] C-Reactive Protein, Quant <0.3 mg/L (Normal) Range: 0.0-4.9 28-Bzp-680856:34 CBC (AUTO) (53955) Comments: PATIENT NOT FASTINGPERFORMED BY: MotionDSPCoSaint Barnabas Medical CenterEcbfjt2885 [facility] [id number] Platelets 308 {x10E3/uL} (Normal) Range: 150-379 RDW 13.8 % (Normal) Range: 12.3-15.4 MCHC 34.8 g/dL (Normal) Range: 31.5-35.7 MCH 29.0 pg (Normal) Range: 26.6-33.0 MCV 84 fL (Normal) Range: 79-97 Hematocrit 41.4 % (Normal) Range: 34.0-46.6 Hemoglobin 14.4 g/dL (Normal) Range: 11.1-15.9 RBC 4.96 {x10E6/uL} (Normal) Range: 3.77-5.28 WBC 8.6 {x10E3/uL} (Normal) Range: 3.4-10.8 30-Zdh-752420:34 ALEC (ANTINUCLEAR ANTIBODY) Comments: PATIENT NOT FASTINGPERFORMED BY: [facility] Nowfqa1212 [address] [facility] [id number] (09660) ALEC Direct Negative (Normal) 17-Yhu-742942:51 NuSwab Vaginitis Plus Comments: PATIENT NOT FASTINGPERFORMED BY: [facility] Ftrfzmkrhx8799 [facility] [id number] Information: [id number] (trich/BV/GC/tavo W/O Herpes) (93076) Neisseria gonorrhoeae, Negative (Normal) CRUZ Chlamydia trachomatis, [...] was developed and its performance characteristics determinedby [employer]. It has not been cleared or appro chapis by the Food and DrugAdministration. The FDA has determined that such clearance orapproval is not necessary. BVAB 2 Low - 0 {Score} (Normal) Atopobium vaginae Low - 0 {Score} (Normal) 0-Fnz-111317: Mass (define area) See Note (Normal) Comments: [facility] [address] [place], [address] 24 Comments: Patient: KELIN FLORES : 1990 (24/F) Acct Num: [id number] Phys: Jamila CAM,Bells Unit Num: [id number] Loc: [facility] Specimen: [id number] Received: 01/21/15 - 1028 Spec Ty pe: [...] one block. / AM: 01/21/15 TC:2 CPT: 40916 x2, 70334 x2, 60448 x2 HEADER OPERATION: Incisional biopsy neck mass [...] 21-Jan-20158:00 ,Urine Comments: [facility] [address] [place], [address] HCGUQUAL Negative {Negative} (Normal) Comments: Very dilute urine specimens, as indicated by a low specificgravity, may not contain applications sales representative levels of hCG.If is still suspected, a first morning urinespecimen should be collected 48 hours later and tested. 87-Kbu-51720:37 CBC, Platelets & Auto Diff Comments: PATIENT NOT FASTINGPERFORMED BY: [facility] Aysuuw0587 [facility] [id number] Information: [id number],[id number] (35416) Immature Grans (Abs) 0.0 {x10E3/uL} (Normal) Range: [...] Panel, Comprehensive Comments: PATIENT NOT FASTINGPERFORMED BY: Ak[facility] TherapeuticsSaint Barnabas Medical CenterXuynii5667 [facility] [id number] (40849) ALT (SGPT) 13 [iU]/L (Normal) Range: 0-32 [...] mg/dL (Normal) Range: 65-99 :37 Anti-TPO Antibody (99271) Comments: PATIENT NOT FASTINGPERFORMED BY: LabCoSaint Barnabas Medical CenterYkgjuu4738 [facility] [id number] Thyroid Peroxidase (TPO) Ab 7 {IU/mL} (Normal) Range: 0-34 :37 T4, FREE (THYROXINE) (35948) Comments: PATIENT NOT FASTINGPERFORMED BY: RONAK [facility]6370 [facility] [id number] T4,Free(Direct) 1.36 ng/dL (Normal) Range: 0.82-1.77 :37 T3, FREE (TRIDOTHYRONINE) (47417) Comments: PATIENT NOT FASTINGPERFORMED BY: [facility]6370 [facility] [id number] Triiodothyronine,Free,Serum 3.5 pg/mL (Normal) Range: 2.0-4.4 :37 TSH (44344) Comments: PATIENT NOT FASTINGPERFORMED BY: [facility]Bea[facility] Hospital6370 [facility] [id number]; apt. 12-10-14 TSH 1.210 {uIU/mL} (Normal) Range: 0.450-4.500 Urine Drug Screen positive amphetamines :30 (Office - Urine (Normal) Drug Screen 6 Panel) (77066) Glucose, Serum 72 mg/dL (Normal) Comments: PATIENT WAS FASTINGPERFORMED BY: [facility]6370 [facility] [id number] 1:30 Range: 65-99 :30 Lipid Panel With LDL/HDL Comments: PATIENT WAS FASTINGPERFORMED BY: [facility]6370 [facility] [id number] Information: [id number] Ratio LDL/HDL Ratio 1.7 {ratio_units} (Normal) Range: [...] 141 mg/dL (Normal) Range: 100-189 :39 LIPASE (32626) Comments: PATIENT NOT FASTINGPERFORMED BY: [facility] Wbttjz0390 [address] RoadD[address] [place] [id number] Lipase, Serum 20 U/L (Normal) Range: 0-59 :39 AMYLASE (28330) Comments: PATIENT NOT FASTINGPERFORMED BY: [facility] Cwbqcz8973 [address] RoadDublin [place] [id number] Amylase, Serum 33 U/L (Normal) Range: 31-124 :39 HCG Qualitative, Serum (57833) Comments: PATIENT NOT FASTINGPERFORMED BY: [facility] Ytrver[address] [facility] [place] [id number] hCG,Beta Subunit,Qual,Serum Negative m[iU]/mL (Normal) :39 CALCIFIDIOL (45028) VIT D 25 Comments: PATIENT NOT FASTINGPERFORMED BY: [facility] Xsxdml5[address] [facility] [place] [id number] Vitamin D, 25-Hydroxy 35.9 ng/mL (Normal) Range: 30.0-100.0 Comments: Vitamin D deficiency has been defined by the Falcon ofMedicine and an Endocrine Society practice guideline as alevel of serum 25-OH vitamin D less than 20 ng/mL (1,2).The Endocrine Society went on to further define vitamin Dinsufficiency as a level between 21 and 29 ng/mL (2).1. IOM ([place]alcon of Medicine). 2010. Dietary reference intakes for calcium and D. [place]: The National Academies Press.2. Kelly MF, Rocky [place], Shayan-Ventura CHICAS, et al. Evaluation, treatment, and prevention of vitamin D deficiency: an Endocrine Society clinical practice guideline. JCEM. 2010; 96(7):1911-30. :39 Folate (96708) Comments: PATIENT NOT FASTINGPERFORMED BY: [facility] Wjcknu55[address] [facility] HospitalD[facility] [place] [id number] Folate (Folic Acid), Serum 12.6 ng/mL (Normal) Comments: A serum folate concentration of less than 3.1 ng/mL isconsidered to represent clinical deficiency. :39 VITAMIN B-12 (CYANOCOBALAMIN) Comments: PATIENT NOT FASTINGPERFORMED BY: [employer] Ubjaxy2539 [facility] [id number] (32421) Vitamin B12 703 pg/mL (Normal) Range: 211-946 :39 TSH (22713) Comments: PATIENT NOT FASTINGPERFORMED BY: vozero [facility] Kjkqhz2767 [facility] [id number] TSH 0.736 {uIU/mL} (Normal) Range: 0.450-4.500 :39 SED RATE ERYTHROCYTE (39794) Comments: PATIENT NOT FASTINGPERFORMED BY: [employer] Dsamte0255 [facility] [id number] Sedimentation Rate-Westergren 2 mm/h (Normal) Range: 0-32 :39 METABOLIC PANEL, Comments: PATIENT NOT FASTINGPERFORMED BY: [employer] Hnhzke4130 [facility] [id number] Information: [id number] COMPREHENSIVE (53990) ALT (SGPT) 13 [iU]/L (Normal) Range: 0-32 [...] mg/dL (Normal) Range: 65-99 :39 CBC (AUTO) (89497) Comments: PATIENT NOT FASTINGPERFORMED BY: [employer] Ytzlwq4430 [facility] [id number] Platelets 348 {x10E3/uL} (Normal) Range: 150-379 RDW 13.6 % (Normal) Range: 12.3-15.4 MCHC 34.4 g/dL (Normal) Range: 31.5-35.7 MCH 29.0 pg (Normal) Range: 26.6-33.0 MCV 84 fL (Normal) Range: 79-97 Hematocrit 41.3 % (Normal) Range: 34.0-46.6 Hemoglobin 14.2 g/dL (Normal) Range: 11.1-15.9 RBC 4.90 {x10E6/uL} (Normal) Range: 3.77-5.28 WBC 10.5 {x10E3/uL} (Normal) Range: 3.4-10.8 :39 ALEC (ANTINUCLEAR ANTIBODY) Comments: PATIENT NOT FASTINGPERFORMED BY: [employer] Aahiqf9051 [facility] [id number] (95619) ALEC Direct Negative (Normal) Plan of Care [...] Indication: Abdominal pain Abdominal pain : Reviewed Prop Worker Letter Indication: Abdominal pain Planned Observations Drug Screen (7drug + Alcohol) (81477)Indication: ADD (attention deficit disorder) On: 90-Fbp-029388:51 Request Glucose (82366)Indication: Encounter for pre-employment examination On: 85-Sbj-011526:35 Request Lipid Panel (81207)Indication: Encounter for pre-employment examination On: 90-Qrq-573093:35 Request Urine Drug Screen (Office - Urine Drug Screen 9 Panel) (17844)Indication: ADD (attention deficit disorder) On: 79-Ium-179067:31 Request GLUCOSE TOLERANCE TEST (GTT) (80144)Indication: Fatigue On: 25-Rbg-390623:23 Request Comments: 5 hr test CALCIUM SERUM (41268)Indication: Hypercalcemia On: 17-Jan-20149:23 Request Folate (58419)Indication: Fatigue On: 14-Jan-20149:26 Request Planned Encounters Medical; [...] Intent (J1885)By: Mala Alfredo CNP Comments: lot 50248pp6.1.1630mgleft gmIMas, MOLD RUNNER Toradol Injection, 30 mg On: 17-Jan-2014 Intent (J1885)By: Cecilia Dhaliwal DO Comments: Lot:[id number]:10/16/2015Dose:30mgRoute:30mg Site:[facility] By:EVIE signed Cecilia Dhaliwal DO Ultrasound - [...] pain in female [facility] Payers Daivd Maciel; a guarantor
== END ==
PROVIDERS: Family Provider Internal Medicine; PCP Internal Medicine; Referring Provider Internal Medicine; Visit Provider Internal Medicine
DX: E04.1 Nontoxic single thyroid nodule (principal)
CPT/HCPCS: 76536

== ENCOUNTER → 2018-05-11 17:07 | Outpatient (CLI) | payer OTHER, SELFPAY ==
[2018-05-11 14:25] VITALS: BMI 38.8
[2018-05-11 20:32] LABS: Chlamydia Trachomatis by PCR Negative (Negative); Neisserai gonorrhoeae by PCR Negative (Negative); Probe Check PASS; Sample Adequacy Control PASS; Specimen Processing Control PASS
== END ==
PROVIDERS: Family Provider Internal Medicine; PCP Internal Medicine; Referring Provider Nurse Practitioner Women's Health; Visit Provider Nurse Practitioner Women's Health
DX: Z34.90 Encounter for supervision of normal pregnancy, unspecified, unspecified trimester (principal); Z12.4 Encounter for screening for malignant neoplasm of cervix
CPT/HCPCS: 87086; 87491; 87591; 88175; G0145

== ENCOUNTER → 2018-05-26 | Outpatient (CLI) | payer OTHER, SELFPAY ==
[2018-05-26 15:11] VITALS: BMI 38.8
== END | disposition home or self-care (01) ==
LOC: PAVLAB 15:23
PROVIDERS: Nurse Practitioner Women's Health; Family Provider Internal Medicine; PCP Internal Medicine; Visit Provider Obstetrics & Gynecology
DX: Z34.81 Encounter for supervision of other normal pregnancy, first trimester (principal)
CPT/HCPCS: 36415

== ENCOUNTER → 2018-06-27 14:16 | Outpatient (CLI) | payer OTHER, SELFPAY ==
[2018-06-27 13:48] VITALS: BMI 38.8
[2018-06-27 14:38] LABS: Absolute Lymphocyte Count 2.92 X10^3/ul (0.83-4.51); Absolute Neutrophil Count 9.3 X10^3/uL (2.0-7.7); Basophil# 0.03 X10^3/uL; Basophil% 0.2 % (0-1); Eosinophils% 2.3 % (0-5); Hematocrit 39.4 % (37-47); Hemoglobin 13.5 g/dl (12.0-15.0); Lymphocyte # 2.92 X10^3/ul (4.0); Lymphocyte % 22.1 % (19-41); Mean Corp Hgb Conc 34.3 g/gl (32-36); Mean Corpuscular Hgb 29.3 pg (27.0-32.0); Mean Corpuscular Volume 85.5 fL (81-99); Monocyte# 0.67 X10^3/uL; Monocyte% 5.1 % (0-10); Neutrophil # 9.25 X10^3/uL (2.7-7.7); Neutrophil % 69.9 % (47-70); Platelet Count 291 K/mm3 (150-450); RBC Distribution Width CV 13.7 % (11.6-14.6); RBC Distribution Width SD 42.2 fl (35.1-43.9); Red Blood Count 4.61 M/mm3 (4.2-5.4); White Blood Count 13.2 K/mm3 (4.4-11.0)
[2018-06-27 14:40] LABS: POSITIVE COUNT NO; POSITIVE DIFFERENTIAL NO; POSITIVE MORPHOLOGY NO
[2018-06-27 15:51] LABS: HIV - WCH Non-Reactive (Nonreactive); Rubella IgG 223.1 IU/mL
[2018-06-29 11:26] LABS: HEPATITIS B SURFACE AG Negative (Negative)
[2018-06-30 03:28] LABS: Rapid Plasmin Reagin (RPR) NONREACTIVE (NONREACTIVE)
== END ==
PROVIDERS: Family Provider Internal Medicine; PCP Internal Medicine; Visit Provider Obstetrics & Gynecology
DX: Z34.80 Encounter for supervision of other normal pregnancy, unspecified trimester (principal)
CPT/HCPCS: 36415; 85025; 86592; 86703; 86762; 86850; 86900; 87340

== ENCOUNTER 2018-06-29 12:09 | Emergency (ER) | payer OTHER, SELFPAY ==
[2018-06-27 13:48] VITALS: BMI 38.8
[2018-06-29 12:10] VITALS: BP 121/67; PULSE 99; RESP 18; TEMP 36.8; O2SAT 98; BMI 69.0
--- NOTE | 2018-06-29 12:40 | ED.VISSUMM ---
- ER Visit Summary Date of Service: 06/29/18 Chief Complaint: Sore throat History of Present Illness: The patient is a 27 F currently 16 weeks . G3, P2 Ab0. Due date November 2018. Patient states the last 2 days she has had a sore throat. Able to swallow. She denies any nausea, vomiting, diarrhea or fever. No vaginal bleeding nor any abdominal pain. Went to the urgent care this morning they did a rapid strep which was negative and she thinks there is a throat culture pending. Physical Examination: Well-appearing young female. Vital signs are stable and afebrile. No distress. Laying supine. No trouble breathing or swallowing. HEENT exam TMs normal bilaterally. Posterior pharynx minimal erythema. No exudate whatsoever. She is had a prior tonsillectomy. No swelling. Neck nontender. Trachea midline. No lymphadenopathy. Trachea nontender. Lungs clear to auscultation bilaterally. Heart regular rhythm no murmur. The abdomen soft and nontender. Normal bowel sounds. Patient is moving all 4 extremities. Neurologically she is awake alert. Test Results: None Emergency Department Course and Treatment: Discharge Treatment Plan: Plenty fluids and rest. Tylenol for pain. Warm salt water gargling. Chloraseptic [place]. Patient understands she does not need antibiotics at this time. Disposition: Discharge Impression: Viral pharyngitis at 16 weeks This note was generated with [employer] dictation software. It may contain incorrect words, spelling, and punctuation that were not noted in review of the chart prior to signing ED Disposition - Plan for ED Patient: Referrals: Cecilia Dhaliwal DO [Primary Care Provider] -
--- NOTE | 2018-06-29 12:44 | DCINST.ED_ITS ---
ED Disposition - Plan for ED Patient: Disposition: Home or Assisted Living Instructions: ED Pharyngitis Viral Referrals: Cecilia Dhaliwal DO [Primary Care Provider] - 3-5 Days if not improving Additional Instructions: Warm salt water gargling. Chloraseptic [place]. Tylenol for pain. Follow-up if not improving.
[2018-06-29 12:50] VITALS: RESP 18
== END 2018-06-29 12:51 | disposition home or self-care (01) ==
PROVIDERS: Emergency Provider Emergency Medicine; Family Provider Internal Medicine; PCP Internal Medicine
DX: O26.892 Other specified pregnancy related conditions, second trimester (principal); J02.9 Acute pharyngitis, unspecified; Z3A.16 16 weeks gestation of pregnancy
CPT/HCPCS: 99282

== ENCOUNTER → 2018-07-28 | Outpatient (CLI) | payer OTHER, SELFPAY ==
[2018-07-28 16:05] VITALS: BMI 69.0
== END | disposition home or self-care (01) ==
LOC: LABSPEC 17:10
PROVIDERS: Family Provider Internal Medicine; PCP Internal Medicine; Referring Provider Obstetrics & Gynecology; Visit Provider Obstetrics & Gynecology
DX: N89.8 Other specified noninflammatory disorders of vagina (principal)
CPT/HCPCS: 87070; 87205

== ENCOUNTER → 2018-08-08 | Outpatient (CLI) | payer OTHER, SELFPAY ==
[2018-07-28 16:05] VITALS: BMI 69.0
== END | disposition home or self-care (01) ==
LOC: LABSPEC 15:50
PROVIDERS: Family Provider Internal Medicine; PCP Internal Medicine; Referring Provider Otolaryngology Otolaryngology/Facial Plastic Surgery; Visit Provider Otolaryngology Otolaryngology/Facial Plastic Surgery
DX: L02.11 Cutaneous abscess of neck (principal)
CPT/HCPCS: 87070; 87205

== ENCOUNTER → 2018-09-18 | Outpatient (CLI) | payer OTHER, SELFPAY ==
[2018-09-18 13:46] VITALS: BMI 69.0
[2018-09-18 14:56] LABS: Absolute Lymphocyte Count 2.62 X10^3/uL (0.83-4.51); Absolute Neutrophil Count 9.1 X10^3/uL (2.0-7.7); Basophil# 0.03 X10^3/uL; Basophil% 0.2 % (0-1); Eosinophil# 0.21 X10^3/uL; Eosinophils% 1.6 % (0-5); Hematocrit 33.3 % (37-47); Hemoglobin 11.2 g/dL (12.0-15.0); Lymphocyte # 2.62 X10^3/ul (4.0); Lymphocyte % 20.4 % (19-41); Mean Corp Hgb Conc 33.6 g/dL (32-36); Mean Corpuscular Hgb 29.9 pg (27.0-32.0); Mean Corpuscular Volume 88.8 fL (81-99); Mean Platelet Vol. 10.4 fl (6.2-12.0); Monocyte# 0.71 X10^3/uL; Monocyte% 5.5 % (0-10); NRBC Flagged by Analyzer 0 % (0-5); Neutrophil # 9.13 X10^3/uL (2.7-7.7); Neutrophil % 71.3 % (47-70); Platelet Count 293 K/mm3 (150-450); RBC Distribution Width CV 12.9 % (11.6-14.6); Red Blood Count 3.75 M/mm3 (4.2-5.4); White Blood Count 12.8 K/mm3 (4.4-11.0)
[2018-09-18 15:06] LABS: Glucose Challenge Gest 1H 50g 112 mg/dL (70-140)
== END | disposition home or self-care (01) ==
LOC: PAVLAB 13:54
PROVIDERS: Family Provider Internal Medicine; PCP Internal Medicine; Referring Provider Nurse Practitioner Women's Health; Visit Provider Nurse Practitioner Women's Health
DX: Z34.80 Encounter for supervision of other normal pregnancy, unspecified trimester (principal)
CPT/HCPCS: 36415; 82950; 85025

== ENCOUNTER → 2018-11-13 | Outpatient (CLI) | payer OTHER, SELFPAY ==
[2018-11-13 14:36] VITALS: BMI 69.0
== END | disposition home or self-care (01) ==
LOC: LABSPEC 17:17
PROVIDERS: Family Provider Internal Medicine; PCP Internal Medicine; Referring Provider Obstetrics & Gynecology; Visit Provider Obstetrics & Gynecology
DX: Z34.90 Encounter for supervision of normal pregnancy, unspecified, unspecified trimester (principal); Z3A.36 36 weeks gestation of pregnancy
CPT/HCPCS: 87081

== ENCOUNTER 2018-12-05 02:38 | Inpatient (IN) | payer OTHER, SELFPAY ==
[2018-11-29 14:27] VITALS: BMI 69.0
[2018-12-05 02:31] VITALS: BMI 41.1
[2018-12-05 02:34] LABS: ROM Internal Control Test YES-OK TO RESULT pt. (Internal QC)
[2018-12-05 02:36] LABS: ROM Patient Test POSITIVE (Negative)
[2018-12-05] MEDS: Lactated Ringers 1,000 ML 50 ML IV (03:07)
[2018-12-05 03:25] LABS: Absolute Lymphocyte Count 2.77 X10^3/uL (0.83-4.51); Basophil# 0.05 X10^3/uL; Basophil% 0.4 % (0-1); Eosinophil# 0.25 X10^3/uL; Eosinophils% 2.1 % (0-5); Hematocrit 32.6 % (37-47); Hemoglobin 10.3 g/dL (12.0-15.0); Lymphocyte # 2.77 X10^3/ul (4.0); Lymphocyte % 23.1 % (19-41); Mean Corp Hgb Conc 31.6 g/dL (32-36); Mean Corpuscular Hgb 26.4 pg (27.0-32.0); Mean Corpuscular Volume 83.6 fL (81-99); Mean Platelet Vol. 10.9 fl (6.2-12.0); Monocyte# 0.79 X10^3/uL; Monocyte% 6.6 % (0-10); NRBC Flagged by Analyzer 0 % (0-5); Neutrophil # 8.03 X10^3/uL (2.7-7.7); Platelet Count 310 K/mm3 (150-450); RBC Distribution Width SD 41.9 fl (35.1-43.9)
[2018-12-05] MEDS: Oxytocin 30 units/NS 500 ml 30 UNITS/500 ML IV.SOLN IV (08:37)
--- NOTE | 2018-12-05 09:55 | PCM.HP.OB ---
- Problem List (1) Anxiety Status: Acute Comment: 08/29 Zoloft started; 09/18 zoloft increased (2) History of hemorrhage Status: Acute (3) Status: Acute Qualifiers: Comment: declines afp and carrier. Anastasiia low risk. nl anatomy (4) Supervision of other normal Status: Acute Comment: PRR MARY 12/13/18 boy Russell boy PC:Kapil Grover Spouse:Marshall (5) PROM (premature rupture of membranes) Status: Acute History Date of Admission: 12/05/18 Final MARY: 12/13/18 Gestational age: 39 Weeks and 0 Days History of this : This is a 28 year-old, , at 38 weeks gestational age presents with premature rupture membranes and some irregular contractions. Patient has had a without complication and after 6 hours of no cervical change Pitocin will need to be started for augmentation of labor.. Medical History: Medical History (Last Reviewed 11/29/18 @ 14:26 by Marsha Kirby) ADD (attention deficit disorder) F98.8 Surgical History: Surgical History (Last Reviewed 11/29/18 @ 14:26 by Marsha Kirby) H/O neck surgery Z98.890 Allergies latex Allergy (Verified 12/05/18 02:33) Rash Home Medications: Home Medications Acyclovir 400 mg PO DAILY 12/05/18 Smoking Status: Former smoker Alcohol: None Number of Fetus(es): 1 NST - FHR Rate Baby A Baseline: 130 Variability:: Moderate Accelerations:: 15 x 15 Decelerations:: None NST Reactive:: Yes FHR Category:: Category I Uterine Activity:: irregular History Past Pregnancies: Pregancy History 3 Elective abortions Hx Para 2 Spontaneous abortions Hx # Term Pregnancies 2 Ectopic pregnancies Hx # Pregnancies Multiple births # of living children 2 Past Pregnancies Del. Date Name GA/Weeks Outcome Route Bth Weight Gen Labor Lgth Anesthesia Del Locatn Provider FOB 09/14/07 Angelita 39 live - full term 7 lbs 7 oz. Female 6 hours epidural [facility] Dr. Villarreal 05/26/16 Jann 40 live - full term 7 lbs 14 oz. Male 3 hours epidural [facility] Dr. Chou Labs: Mom's Problem List Problem Status Onset Code PROM (premature rupture of membranes) Acute O42.90 Mom's Labs & Results 12/05/18 12/05/18 12/05/18 02:10 03:07 03:07 WBC 12.0 H RBC 3.90 L Hgb 10.3 L Hct 32.6 L MCV 83.6 MCH 26.4 L MCHC 31.6 L RDW Std Deviation 41.9 RDW Coeff of Andrew 14.0 Plt Count 310 MPV 10.9 Immature Gran % (Auto) 0.800 Neut % (Auto) 67.0 Lymph % (Auto) 23.1 Antelope % (Auto) 6.6 Eos % (Auto) 2.1 Baso % (Auto) 0.4 Absolute Neuts (auto) 8.0 H Absolute Lymphs (auto) 2.77 Nucleated RBC % 0 Vag Amniotic Fld Detect POSITIVE H Blood Type A POSITIVE Antibody Screen NEGATIVE Course Did the patient receive Yes care? Labs Blood Type: A RH: POSITIVE RPR/VDRL/Syphilis Nonreactive Rubella status Immune HbSAg Negative Date Done: 06/27/18 Chlamydia Negative Gonorrhea Negative HIV/AIDS Non-Reactive Group B Strep: Negative Current Obstetrical History Gestational Diabetes No Incompetent Cervix No Infertility No IUGR No Macrosomia No Hypertension/Pre-eclampsia No Placenta Previa/Abruption No PTL/PROM No Uterine anomaly No Oligohydramnios No Polyhydramnios No Multiple gestation No Past Medical History Asthma No Diabetes No Hypertension No Heart disease No Mitral valve prolapse No Neurologic/Seizure disorder/ No Migraines Kidney disease No Liver disease No Varicosities No Clotting disorders/Hx of DVT No Thyroid Dysfunction No Other medical diseases No Psychiatric disorders Yes: zoloft during this ; but discontinued and pt well at this time Major trauma No Abnormal PAP smear No Sleep apnea No Mammogram in the last 2 years No Social History Marital Status: Alleged father marshall Hx Smoking Yes Smoking Status Former smoker How long have you used n/a substances (years)? Expected Delivery Method: Spontaneous Vaginal Review of Systems Constitutional: Denies: Fever, Malaise Eyes: Denies: Blurred vision, Vision Change HEENT: Denies: Head Aches, Visual Changes Cardiovascular: Denies: Chest Pain, Palpitations Respiratory: Denies: Cough, Shortness of Breath, Wheezing Gastrointestinal: Denies: Abdominal Pain, Diarrhea, Nausea, Vomiting Genitourinary: Denies: Dysuria, Hematuria Musculoskeletal: Denies: Joint Pain, Muscle pain Skin: Denies: Lesions, Rash Neurological: Denies: Blurred vision, Focal weakness, Headaches Psychiatric: Denies: Anxiety, Depression Endocrine: Denies: Heat/ Cold Intolerance Hematologic/ Lymphatic: Denies: Easy Bruising, Easy Bleeding Physical Exam General: Alert, Cooperative, No apparent distress HEENT: Atraumatic, Normocephalic. Negative for: Thyromegaly, Lymphadenopathy Cardiovascular: Regular rate Lungs: Normal air movement Abdomen: Soft, Non Tender, Gravid Neurological: Deep Tendon Reflexes 2+/4 and Symmetrical, Neuro grossly intact. Negative for: Clonus [employer] DATA SPECIALIST: Normal external genitalia. Negative for: Vulvar lesions Estimated gestational size: Appropriate for gestational size Presentation: Cephalic Assessment/Plan All Active Problems (Last Reviewed 11/29/18 @ 14:26 by Marsha Kirby) PROM (premature rupture of membranes) (Acute) Anxiety (Acute) History of hemorrhage (Acute) (Acute) Supervision of other normal (Acute) Low lying placenta nos or without hemorrhage, second trimester (Resolved) Subchorionic hematoma, antepartum (Resolved) This is a 28 year-old, at 38 weeks gestational age presents IAL presents IAL pit per protocol for PROM and epi PRN
[2018-12-05] MEDS: Lactated Ringers 500 ML 999 ML IV (10:09)
[2018-12-05] MEDS: fentaNYL-bupivacaine (epidural) 100 ML BAG EPIDURAL (11:36)
[2018-12-05] MEDS: Ondansetron 4 MG/2 ML Vial IV (13:00)
[2018-12-05] MEDS: Mag Hydrox/Al Hydrox/Simeth 30 ML UDC PO (13:05)
[2018-12-05] MEDS: Lactated Ringers 1,000 ML 200 ML IV (13:59)
[2018-12-05] MEDS: Oxytocin 30 units/NS 500 ml 30 UNITS/500 ML IV.SOLN 334 UNITS IV (14:15)
[2018-12-05] MEDS: Methylergonovine 0.2 MG/ML Ampul IM (15:49)
--- NOTE | 2018-12-05 17:18 | NURSING ---
1716- dr manjarrez made aware of 444 cc of blood loss since delivery; methergine was given and since is small
[2018-12-05] MEDS: Naproxen 250 MG Tablet 500 MG PO (17:55)
[2018-12-05] MEDS: oxyCODONE 5 MG Tablet PO ×2 (18:58→23:08)
[2018-12-05 20:23] VITALS: BP 135/72; PULSE 93; RESP 16; TEMP 36.3; O2SAT 96
[2018-12-05] MEDS: Acetaminophen 500 MG Tablet 1000 MG PO (22:39)
[2018-12-06 00:32] VITALS: BP 117/60; PULSE 76; RESP 16; TEMP 36.2
[2018-12-06] MEDS: Naproxen 250 MG Tablet 500 MG PO (02:33)
[2018-12-06 04:45] VITALS: BP 106/64; PULSE 72; RESP 14; TEMP 36.2
[2018-12-06] MEDS: Acetaminophen 500 MG Tablet 1000 MG PO (06:09)
[2018-12-06 08:05] VITALS: BP 111/60; PULSE 66; RESP 16; TEMP 36.4
[2018-12-06] MEDS: oxyCODONE 5 MG Tablet PO ×4 (08:18→22:40)
--- NOTE | 2018-12-06 08:49 | PCM.PN.OB ---
Patient Problems: Active and Suspected Problems (Last Reviewed 11/29/18 @ 14:26 by Marsha Kirby) PROM (premature rupture of membranes) (Acute) Subjective: doing well no complaints pain controlled no CP SOB N V ambulating well tolerating po lochia moderate, going well - Physical Exam Vitals/I&O's: Vital Signs Temp Pulse Resp BP Pulse Ox 97.5 F L 66 16 111/60 96 12/06/18 08:05 12/06/18 08:05 12/06/18 08:05 12/06/18 08:05 12/05/18 20:23 Oxygen Delivery Method Room Air Weight: 263 lb Body Mass Index (BMI) 41.1 Intake and Output for Last 24 Hours 12/04/18 12/05/18 12/06/18 23:59 23:59 23:59 Intake Total 2426.39 / 2426.39 Output Total 2550 / 2550 Balance -123.61 / -123.61 General: Alert, Oriented x3 Abdomen: Soft, Non Tender, Non-Distended, - - FF below U Current Medications Acetaminophen (Tylenol) 1,000 mg PO Q8H PRN PRN PRN Reason: Pain Score 1-310 Last Admin: 12/06/18 06:09 Dose: 1,000 mg Documented by: Bisacodyl (Dulcolax) 10 mg RECTAL UD PRN PRN Reason: If no BM Dibucaine (Dibucaine) 1 applic TOPICAL TID PRN PRN; Protocol PRN Reason: Discomfort Hydrocortisone (Hytone) 1 applic TOPICAL TID PRN PRN; Protocol PRN Reason: Discomfort Methylergonovine Maleate (Methergine) 0.2 mg IM X1 PRN PRN Reason: Excess bleeding/uterine atony Last Admin: 12/05/18 15:49 Dose: 0.2 mg Documented by: Naproxen (Naprosyn) 500 mg PO Q8H PRN PRN PRN Reason: Pain Score 1-3/10 Last Admin: 12/06/18 02:33 Dose: 500 mg Documented by: Ondansetron HCl (Zofran) 4 mg IV Q4H PRN PRN PRN Reason: Nausea Oxycodone HCl (Oxyir) 5 - 10 mg PO Q4H PRN PRN PRN Reason: Pain Score 4-10/10 Last Admin: 12/06/18 08:18 Dose: 5 mg Documented by: Senna/Docusate Sodium (Senokot-S, Harika-Colace) 1 - 2 tablet PO DAILY PRN PRN PRN Reason: Constipation Simethicone (Mylicon) 80 mg PO PCHS PRN PRN Reason: Indigestion/Stomach pain Sodium Chloride () 5 - 15 ml IV UD PRN PRN Reason: SALINE FLUSH Medical Necessity - Tobacco Use Smoking Status: Former smoker Assessment/Plan All Active Problems (Last Reviewed 11/29/18 @ 14:26 by Marsha Kirby) PROM (premature rupture of membranes) (Acute) Anxiety (Acute) History of hemorrhage (Acute) (Acute) Supervision of other normal (Acute) Low lying placenta nos or without hemorrhage, second trimester (Resolved) Subchorionic hematoma, antepartum (Resolved) s/p PPD # 1 1. routine post delivery care 2. breast feeding- support given 3. rh positive 4. rubella immune
[2018-12-06 11:48] VITALS: BP 125/74; PULSE 68; RESP 16; TEMP 36.5
[2018-12-06 15:55] VITALS: BP 117/69; PULSE 76; RESP 14; TEMP 36.5
[2018-12-06 20:22] VITALS: BP 129/64; PULSE 78; RESP 16; TEMP 36.3; O2SAT 97
[2018-12-06] MEDS: Senna/Docusate Sodium 1 Tablet PO (20:48)
--- NOTE | 2018-12-06 21:21 | PCM.OPRPT ---
Problem List (1) Anxiety Status: Acute Comment: 08/29 Zoloft started; 09/18 zoloft increased (2) History of hemorrhage Status: Acute (3) Status: Acute Qualifiers: Comment: declines afp and carrier. Anastasiia low risk. nl anatomy (4) Supervision of other normal Status: Acute Comment: PRR MARY 12/13/18 boy Russell boy PC:Reilly Kapil Spouse:Blane (5) PROM (premature rupture of membranes) Status: Acute Vaginal Delivery Maternal Presentation: Active Labor ial prom Amniotic Membrane Rupture Type: Spontaneous at home Amniotic Fluid Description: Clear Final MARY: 12/13/18 Gestational age: 39 Weeks and 0 Days Date of Procedure: 12/05/18 Pre-Operative Diagnosis: prom Post-Operative Diagnosis: same Surgery/ Procedure Performed: Spontaneous Vaginal Delivery Type of Anesthesia: Epidural Description of Procedure: Patient began pushing and delivered the head in the FRANK presentation. The head was delivered atraumatically and a tight nuchal cord x2 was reduced and the delivered through. The anterior and posterior shoulders delivered without complication followed by the rest of the infant and the infant was placed on the maternal abdomen. Delayed cord clamping was employed for approximately 60 seconds. Cord was clamped and cut and gentle traction was applied to the cord and the placenta delivered spontaneously immediately following it was noted to be intact with three-vessel cord. The perineum and vagina were inspected and noted to have no laceration. EBL was 200 cc. Patient and infant tolerated delivery well. Presentation: FRANK Placental Delivery Description: Spontaneous Placenta Disposition: [facility] Cord Vessel Description: 3 Vessels Cord Entanglement: Around neck x 2, loose Estimated Blood Loss: 200 Infant A gender: Male Episiotomy Description: None Medications given after delivery: IV Pitocin Complications: None
--- NOTE | 2018-12-06 21:28 | DCINST_ITS ---
Discharge Diet: No Restrictions Discharge Activity: Return to Normal Activity, May not drive while taking narcotic pain medications., May Shower May resume sexual activity in: 4-6 weeks Call your doctor if your incision/area has: Continuous Slow Oozing, Sudden Increased Bleeding, Increased Pain/ Swelling, Increased Redness, Foul Smelling Discharge Additional Instructions: If you experience any of the following, contact your healthcare provider. * Bleeding that soaks a pad every hour for 2 hours * Fever 100.4 or higher * Unrelieved incision or abdominal pain * Swelling, redness, discharge or bleeding from your incision or episiotomy site * Your incision begins to separate * Problems urinating (including inability to urinate or burning while urinating). * Visual changes * Severe headache * Flu-like symptoms * Pain or redness in one of both of your breasts * Pain, warmth, tenderness or swelling in your legs, especially the calf area * Frequent nausea and vomiting * Symptoms of depression or anxiety If you experience any of the following, call 911 or go to the nearest Emergency Room. * Chest pain * Problems breathing * Seizure activity * Partial or complete paralysis of a body part, slurred speech, weakness or drooping of the face, or a sudden inability to walk or hold your balance Allergies/Adverse Reactions: Allergies latex Allergy (Verified 12/05/18 02:33) Rash Medications to take at Discharge Acyclovir 400 mg PO DAILY 12/05/18 Please Follow Up With: Luann Chou MD - [phone] When: Call to make an appointment with your doctor in 6 weeks. If you had elevated Blood pressure or 4th degree laceration you will need to be seen in 2 weeks. Primary Care Physician: Cecilia Dhaliwal DO [Primary Care Provider] - Test Results: Test results from this visit will be discussed in further detail at your follow- up appointment, if applicable.
--- NOTE | 2018-12-06 21:28 | PCM.DCVAG ---
Discharge Diet: No Restrictions Discharge Activity: Return to Normal Activity, May not drive while taking narcotic pain medications., May Shower May resume sexual activity in: 4-6 weeks Call your doctor if your incision/area has: Continuous Slow Oozing, Sudden Increased Bleeding, Increased Pain/ Swelling, Increased Redness, Foul Smelling Discharge Additional Instructions: If you experience any of the following, contact your healthcare provider. Bleeding that soaks a pad every hour for 2 hours Fever 100.4 or higher Unrelieved incision or abdominal pain Swelling, redness, discharge or bleeding from your incision or episiotomy site Your incision begins to separate Problems urinating (including inability to urinate or burning while urinating). Visual changes Severe headache Flu-like symptoms Pain or redness in one of both of your breasts Pain, warmth, tenderness or swelling in your legs, especially the calf area Frequent nausea and vomiting Symptoms of depression or anxiety If you experience any of the following, call 911 or go to the nearest Emergency Room. Chest pain Problems breathing Seizure activity Partial or complete paralysis of a body part, slurred speech, weakness or drooping of the face, or a sudden inability to walk or hold your balance Allergies/Adverse Reactions: Allergies latex Allergy (Verified 12/05/18 02:33) Rash Medications to take at Discharge Acyclovir 400 mg PO DAILY 12/05/18 Please Follow Up With: Luann Chou MD - [phone] When: Call to make an appointment with your doctor in 6 weeks. If you had elevated Blood pressure or 4th degree laceration you will need to be seen in 2 weeks. Primary Care Physician: Cecilia Dhaliwal DO [Primary Care Provider] - Test Results: Test results from this visit will be discussed in further detail at your follow-up appointment, if applicable.
[2018-12-07 02:34] VITALS: BP 122/69; PULSE 82; RESP 18; TEMP 36.6; O2SAT 97
[2018-12-07] MEDS: Naproxen 250 MG Tablet 500 MG PO (02:38)
[2018-12-07] MEDS: oxyCODONE 5 MG Tablet PO ×2 (02:39→08:30)
[2018-12-07 08:21] VITALS: BP 125/74; PULSE 72; RESP 16; TEMP 36.4
--- NOTE | 2018-12-07 08:47 | PCM.PN.OB ---
Patient Problems: Active and Suspected Problems (Last Reviewed 11/29/18 @ 14:26 by Marsha Kirby) PROM (premature rupture of membranes) (Acute) Subjective: doing well no complaints pain controlled no CP SOB N V ambulating well tolerating po lochia moderate, going well - Physical Exam Vitals/I&O's: Vital Signs Temp Pulse Resp BP Pulse Ox 97.6 F L 72 16 125/74 H 97 12/07/18 08:21 12/07/18 08:21 12/07/18 08:21 12/07/18 08:21 12/07/18 02:34 Oxygen Delivery Method Room Air Weight: 263 lb Body Mass Index (BMI) 41.1 Intake and Output for Last 24 Hours 12/05/18 12/06/18 12/07/18 23:59 23:59 23:59 Intake Total 2426.39 / 2426.39 Output Total 2550 / 2550 Balance -123.61 / -123.61 General: Alert, Oriented x3 Current Medications Acetaminophen (Tylenol) 1,000 mg PO Q8H PRN PRN PRN Reason: Pain Score 1-310 Last Admin: 12/06/18 06:09 Dose: 1,000 mg Documented by: Bisacodyl (Dulcolax) 10 mg RECTAL UD PRN PRN Reason: If no BM Dibucaine (Dibucaine) 1 applic TOPICAL TID PRN PRN; Protocol PRN Reason: Discomfort Hydrocortisone (Hytone) 1 applic TOPICAL TID PRN PRN; Protocol PRN Reason: Discomfort Methylergonovine Maleate (Methergine) 0.2 mg IM X1 PRN PRN Reason: Excess bleeding/uterine atony Last Admin: 12/05/18 15:49 Dose: 0.2 mg Documented by: Naproxen (Naprosyn) 500 mg PO Q8H PRN PRN PRN Reason: Pain Score 1-3/10 Last Admin: 12/07/18 02:38 Dose: 500 mg Documented by: Ondansetron HCl (Zofran) 4 mg IV Q4H PRN PRN PRN Reason: Nausea Oxycodone HCl (Oxyir) 5 - 10 mg PO Q4H PRN PRN PRN Reason: Pain Score 4-10/10 Last Admin: 12/07/18 08:30 Dose: 5 mg Documented by: Senna/Docusate Sodium (Senokot-S, Harika-Colace) 1 - 2 tablet PO DAILY PRN PRN PRN Reason: Constipation Last Admin: 12/06/18 20:48 Dose: 1 tablet Documented by: Simethicone (Mylicon) 80 mg PO PCHS PRN PRN Reason: Indigestion/Stomach pain Sodium Chloride () 5 - 15 ml IV UD PRN PRN Reason: SALINE FLUSH Medical Necessity - Tobacco Use Smoking Status: Former smoker Assessment/Plan All Active Problems (Last Reviewed 11/29/18 @ 14:26 by Marsha Kirby) PROM (premature rupture of membranes) (Acute) Anxiety (Acute) History of hemorrhage (Acute) (Acute) Supervision of other normal (Acute) Low lying placenta nos or without hemorrhage, second trimester (Resolved) Subchorionic hematoma, antepartum (Resolved) s/p PPD # 2 1. routine post delivery care 2. breast feeding- support given 3. rh positive 4. rubella immune
== END 2018-12-07 10:55 | disposition home or self-care (01) | DRG 807 ==
LOC: WPOUT 02:41
PROVIDERS: Admitting Provider Obstetrics & Gynecology; Family Provider Internal Medicine; PCP Internal Medicine; Referring Provider Obstetrics & Gynecology; Visit Provider Obstetrics & Gynecology
DX: O99.344 Other mental disorders complicating childbirth (principal); Z37.0 Single live birth; O69.81X0 Labor and delivery complicated by cord around neck, without compression, not applicable or unspecified; F41.9 Anxiety disorder, unspecified; Z3A.38 38 weeks gestation of pregnancy
CPT/HCPCS: 59025; 59050; 84112; 85025; 86850; 86900; 86901; 99218; J7120; G0378; J2405

== ENCOUNTER 2018-12-07 19:05 | Outpatient (CLI) | payer OTHER, SELFPAY ==
[2018-12-07 18:53] VITALS: BMI 37.5
[2018-12-07 19:30] VITALS: BP 140/72; PULSE 86; RESP 18; TEMP 36.4
--- NOTE | 2018-12-07 19:38 | NURSING ---
Patient came into unit tonight 2 days PP with c/o of fist size blood clot this afternoon around 1530; patient states bleeding was appropriate prior and post blood clot; assessment completed and call placed to to inform her of patient's complaints and current assessment and orders received for patient to be discharged to home.
[2018-12-07 19:51] VITALS: BMI 40.0
--- NOTE | 2018-12-09 01:58 | OB.TRI.PN ---
Progress Notes Date of Service: 12/07/18 Progress Note: elevated bp and some clots vaginally- repeat bps normals and bleeding WNL dc home bleeding precautions vaginal bleeding - Problem List (1) History of elevated blood pressure while in hospital Status: Acute Multi Select Codes - Urinary/Genital Urinary/Genital CPT Codes: Other Procedure See Report - no charge
== END 2018-12-07 19:50 | disposition home or self-care (01) ==
LOC: WPOUT 19:15 → WP 19:17
PROVIDERS: Family Provider Internal Medicine; PCP Internal Medicine; Referring Provider Obstetrics & Gynecology; Visit Provider Obstetrics & Gynecology
DX: O72.2 Delayed and secondary postpartum hemorrhage (principal)
CPT/HCPCS: 99218; G0378

== ENCOUNTER → 2019-08-14 11:21 | Outpatient (CLI) | payer OTHER, SELFPAY ==
[2019-08-14 11:36] LABS: Absolute Lymphocyte Count 3.33 X10^3/uL (0.83-4.51); Basophil# 0.05 X10^3/uL; Basophil% 0.5 % (0-1); Eosinophil# 0.43 X10^3/uL; Eosinophils% 4.6 % (0-5); Hematocrit 45.6 % (37-47); Hemoglobin 14.8 g/dL (12.0-15.0); Lymphocyte # 3.33 X10^3/ul (4.0); Lymphocyte % 35.4 % (19-41); Mean Corp Hgb Conc 32.5 g/dL (32-36); Mean Corpuscular Hgb 28.5 pg (27.0-32.0); Mean Corpuscular Volume 87.7 fL (81-99); Mean Platelet Vol. 10.5 fl (6.2-12.0); Monocyte# 0.59 X10^3/uL; Monocyte% 6.3 % (0-10); NRBC Flagged by Analyzer 0 % (0-5); Neutrophil # 4.99 X10^3/uL (2.7-7.7); Neutrophil % 52.9 % (47-70); Platelet Count 386 K/mm3 (150-450); RBC Distribution Width SD 44.8 fl (35.1-43.9); White Blood Count 9.4 K/mm3 (4.4-11.0)
[2019-08-14 11:58] LABS: Thyroid Stim Hormone (TSH) 0.63 uIU/mL (0.358-3.74)
== END ==
PROVIDERS: Nurse Practitioner Women's Health; PCP Internal Medicine; Referring Provider Obstetrics & Gynecology; Visit Provider Obstetrics & Gynecology
DX: N92.0 Excessive and frequent menstruation with regular cycle (principal)
CPT/HCPCS: 36415; 84443; 85025

== ENCOUNTER → 2019-08-23 11:22 | Outpatient (CLI) | payer OTHER, SELFPAY ==
[2019-08-14 11:45] VITALS: BMI 40.0
--- NOTE | 2019-08-23 11:23 | US_ITS ---
STUDY: ULTRASOUND OF THE FEMALE PELVIS - LIMITED REASON FOR EXAM: Female, 28 years old MENORRHAGIA WITH IRREGULAR CYCLES TECHNIQUE: Transabdominal and Transvaginal TECHNICAL QUALITY: Adequate. COMPARISON: None. FINDINGS: The uterus is anteverted and is in a midline position. The uterus measures 8.5 x 6.4 x 4.7 cm. Normal uterine cervix. The endometrium measures 2.2 mm in thickness, and is heterogeneous (striated). There is no demonstrated endometrial mass. There is no demonstrated myometrial mass. The right ovary measures 3.8 cm x 2.3 cm x 2.0 cm. There is no right ovarian cyst or ovarian mass. There is no visualized right adnexal mass or complex lesion. There is normal arterial and normal venous vascularity. The left ovary measures 3.2 cm x 1.8 cm x 1.4 cm. There is no left ovarian cyst or ovarian mass. There is no visualized left adnexal mass or complex lesion. There is normal arterial and normal venous vascularity. There is no fluid in the cul-de-sac. US/Transvaginal Non- IMPRESSION: Normal female pelvis. Electronically Signed: Jordy White, at 15:27 EDT , Service support ,
--- NOTE | 2019-08-23 11:23 | US_ITS ---
STUDY: ULTRASOUND OF THE FEMALE PELVIS - LIMITED REASON FOR EXAM: Female, 28 years old MENORRHAGIA WITH IRREGULAR CYCLES TECHNIQUE: Transabdominal and Transvaginal TECHNICAL QUALITY: Adequate. COMPARISON: None. FINDINGS: The uterus is anteverted and is in a midline position. The uterus measures 8.5 x 6.4 x 4.7 cm. Normal uterine cervix. The endometrium measures 2.2 mm in thickness, and is heterogeneous (striated). There is no demonstrated endometrial mass. There is no demonstrated myometrial mass. The right ovary measures 3.8 cm x 2.3 cm x 2.0 cm. There is no right ovarian cyst or ovarian mass. There is no visualized right adnexal mass or complex lesion. There is normal arterial and normal venous vascularity. The left ovary measures 3.2 cm x 1.8 cm x 1.4 cm. There is no left ovarian cyst or ovarian mass. There is no visualized left adnexal mass or complex lesion. There is normal arterial and normal venous vascularity. There is no fluid in the cul-de-sac. US/Pelvic (Non ) IMPRESSION: Normal female pelvis. Electronically Signed: Jordy White, at 15:27 EDT , Service support ,
== END ==
LOC: US 11:23
PROVIDERS: PCP Internal Medicine; Referring Provider Nurse Practitioner Women's Health; Visit Provider Nurse Practitioner Women's Health
DX: N92.1 Excessive and frequent menstruation with irregular cycle (principal)
CPT/HCPCS: 76830; 76856

== ENCOUNTER 2021-04-01 17:12 | Outpatient (CLI) | payer BC, OTHER, SELFPAY | END 2021-04-01 23:59 | disposition home or self-care (01) | PROVIDERS: PCP Internal Medicine; Visit Provider Obstetrics & Gynecology | DX: N89.8 Other specified noninflammatory disorders of vagina (principal) | CPT/HCPCS: 87070; 87205 ==

== ENCOUNTER 2021-05-18 07:49 | Outpatient (CLI) | payer BC, OTHER, SELFPAY ==
[2021-05-20 16:38] LABS: HPV APTIMA, High Risk Negative (Negative)
== END 2021-05-18 23:59 | disposition home or self-care (01) ==
LOC: LABSPEC 07:50
PROVIDERS: PCP Internal Medicine; Visit Provider Obstetrics & Gynecology
DX: Z12.4 Encounter for screening for malignant neoplasm of cervix (principal)
CPT/HCPCS: 87624; 88175; G0145

== ENCOUNTER → 2022-07-13 | Outpatient (CLI) | payer BC, OTHER, SELFPAY ==
--- NOTE | 2022-07-13 14:23 | US_ITS ---
STUDY: THYROID ULTRASOUND REASON FOR EXAM: Female, 31 years old. left thyroid nodule -- Left thyriod nodule TECHNIQUE: Ultrasound evaluation of the thyroid was performed with real-time and static hughes-scale imaging. COMPARISON: March 07, 2018 FINDINGS: RIGHT LOBE: The right lobe of the thyroid gland measures 7.1 x 2.1 x 1.4 cm. There is a homogeneous echotexture. There is a tiny cystic nodule with regular margins and herve nodular vascularity in the mid pole measuring 4 x 4 by 2 mm. LEFT LOBE: The left lobe of the thyroid gland measures 6.1 x 1.8 x 1.5 cm. There is a homogeneous echotexture. There is a tiny nodule in the midpole which appears cystic with regular margins and herve nodular vascularity measuring 4 x 2 x 3 mm ISTHMUS: The isthmus measures 2 mm . The regional lymph nodes are normal. Findings are not changed appreciably since previous exam. US/Thyroid IMPRESSION: Stable appearance to tiny bilateral thyroid nodules. No new nodules identified. Electronically Signed: Adam Cerrato MD at 17:08 EDT ,
== END | disposition home or self-care (01) ==
PROVIDERS: PCP Internal Medicine; Referring Provider Internal Medicine; Visit Provider Internal Medicine
DX: E04.1 Nontoxic single thyroid nodule (principal)
CPT/HCPCS: 76536

== ENCOUNTER → 2024-01-25 | Outpatient (CLI) | payer BC, OTHER, SELFPAY | END | disposition home or self-care (01) | PROVIDERS: PCP Internal Medicine; Referring Provider Nurse Practitioner Women's Health; Visit Provider Nurse Practitioner Women's Health | DX: N89.8 Other specified noninflammatory disorders of vagina (principal) | CPT/HCPCS: 87070; 87205 ==